=== PATIENT | male | born 1965 | race Caucasian/White ===

== ENCOUNTER → 2018-06-20 15:21 | Outpatient (CLI) | payer OTHER, MEDICAID, SELFPAY ==
[2018-06-20 16:43] LABS: Add Manual Diff / Slide Review NO; Basophils Percent Auto 0.7 % (0-2); Eosinophils Percent Auto 2.4 % (2-4); Hematocrit 45.5 % (41-53); Hemoglobin 15.2 g/dL (13.5-17.5); Lymphocytes Percent Auto 29.7 % (25-40); Mean Corpuscular HGB Conc 33.3 % (30-36); Mean Corpuscular Hemoglobin 30.6 PG (26-34); Mean Corpuscular Volume 91.8 fL (80-100); Monocytes Percent Auto 7.1 % (3-14); Neutrophils Absolute Auto 4600 /uL (3000-5900); Neutrophils Percent Auto 60.1 % (50-75); Platelet Count 263 X10^3/uL (150-400); Red Blood Cell Count 4.96 X10^6/uL (4.5-5.9); White Blood Cell Count 7.7 X10^3/uL (4.5-11.0)
[2018-06-20 17:01] LABS: Alanine Aminotransferase 34 IU/L (21-72); Albumin Globulin Ratio 1.5 (1.0-2.8); Alkaline Phosphatase 74 U/L (38-126); Amylase 82 U/L (30-110); Aspartate Aminotransferase 30 IU/L (17-59); BUN Creatinine Ratio 15.6 (6-22); Bilirubin Total 0.6 mg/dL (0.2-1.3); Blood Urea Nitrogen 14 mg/dL (9-20); Calcium 10.5 mg/dL (8.4-10.2); Carbon Dioxide 28 mmol/L (22-32); Chloride 104 mmol/L (98-107); Estimated Glomerular Filt Rate > 60.0 mL/min (>60); Globulin 3.3 g/dL (1.7-4.1); Glucose 94 mg/dL (70-100); HEMOLYSIS < 15 (0-50); Lipase 442 U/L (23-300); Potassium 4.3 mmol/L (3.4-5.1); Sodium 146 mmol/L (137-145); Total Protein 8.3 g/dL (6.3-8.2)
[2018-06-20 17:15] LABS: Free T4, Direct Thyroxine 1.01 ng/dL (0.78-2.19)
[2018-06-20 17:29] LABS: Thyroid Stimulating Hormone 0.79 uIU/mL (0.47-4.68)
== END ==
PROVIDERS: Family Provider Internal Medicine; PCP Internal Medicine; Visit Provider Internal Medicine
DX: F41.1 Generalized anxiety disorder (principal); J45.909 Unspecified asthma, uncomplicated; K86.1 Other chronic pancreatitis
CPT/HCPCS: 36415; 80053; 82150; 83690; 84439; 84443; 85025

== ENCOUNTER → 2020-07-16 14:08 | Outpatient (CLI) | payer OTHER, MEDICAID, SELFPAY ==
[2020-07-16 17:36] LABS: Alanine Aminotransferase 32 IU/L (<50); Albumin 4.9 g/dL (3.5-5.0); Albumin Globulin Ratio 1.2 (1.0-2.8); Alkaline Phosphatase 92 U/L (38-126); Aspartate Aminotransferase 35 IU/L (17-59); BUN Creatinine Ratio 16.9 (6-22); Bilirubin Total 0.5 mg/dL (0.2-1.3); Blood Urea Nitrogen 13 mg/dL (9-20); Carbon Dioxide 27 mmol/L (22-32); Chloride 105 mmol/L (98-107); Cholesterol 163 mg/dL (140-199); Estimated Glomerular Filt Rate > 60.0 mL/min (>60); Glucose 99 mg/dL (70-100); HDL Cholesterol 39 mg/dL (40-60); HEMOLYSIS 17 (0-50); LDL Cholesterol Calculated 78 mg/dL (<100); Sodium 140 mmol/L (137-145); Total Protein 8.9 g/dL (6.3-8.2); Triglycerides 229 mg/dL (35-150)
== END ==
PROVIDERS: Family Provider Internal Medicine; PCP Family Medicine; Referring Provider Family Medicine; Visit Provider Family Medicine
DX: E78.5 Hyperlipidemia, unspecified (principal); E83.52 Hypercalcemia; F41.1 Generalized anxiety disorder
CPT/HCPCS: 36415; 80053; 80061

== ENCOUNTER → 2021-07-03 13:44 | Outpatient (CLI) | payer OTHER, MEDICAID, SELFPAY ==
[2021-07-03 13:58] LABS: Add Manual Diff / Slide Review NO; Basophils Absolute Auto 100 /uL (0-100); Basophils Percent Auto 0.7 % (0-2); Eosinophils Absolute Auto 300 /uL (0-450); Eosinophils Percent Auto 3.2 % (2-4); Hematocrit 43.4 % (41-53); Lymphocytes Absolute Auto 3000 /uL (1100-4500); Lymphocytes Percent Auto 36.2 % (25-40); Mean Corpuscular HGB Conc 34.5 % (30-36); Mean Corpuscular Hemoglobin 30.9 PG (26-34); Mean Corpuscular Volume 89.5 fL (80-100); Monocytes Absolute Auto 700 /uL (0-900); Monocytes Percent Auto 8.9 % (3-14); Neutrophils Absolute Auto 4300 /uL (1500-7000); Platelet Count 223 X10^3/uL (150-400); Red Blood Cell Count 4.85 X10^6/uL (4.5-5.9); Red Cell Distribution Width 13.1 % (11.6-14.8); White Blood Cell Count 8.4 X10^3/uL (4.5-11.0)
[2021-07-03 14:25] LABS: Alanine Aminotransferase 38 IU/L (<50); Albumin 5.2 g/dL (3.5-5.0); Albumin Globulin Ratio 1.4 (1.0-2.8); Alkaline Phosphatase 82 U/L (38-126); Aspartate Aminotransferase 41 IU/L (17-59); BUN Creatinine Ratio 26.7 (6-22); Bilirubin Total 0.6 mg/dL (0.2-1.3); Blood Urea Nitrogen 23 mg/dL (9-20); Calcium 10.1 mg/dL (8.4-10.2); Carbon Dioxide 31 mmol/L (22-32); Chloride 102 mmol/L (98-107); Cholesterol 156 mg/dL (140-199); Estimated Glomerular Filt Rate > 60.0 mL/min (>60); Globulin 3.8 g/dL (1.7-4.1); Glucose 102 mg/dL (70-100); HDL Cholesterol 43 mg/dL (40-60); HEMOLYSIS < 15 (0-50); LDL Cholesterol Calculated 91 mg/dL (<100); Potassium 3.8 mmol/L (3.4-5.1); Sodium 141 mmol/L (137-145); Triglycerides 112 mg/dL (35-150)
[2021-07-03 14:55] LABS: Prostate Specific Antigen Scrn 0.436 ng/mL (0.1-4.0); TSH w/ Reflex to FT4 1.68 uIU/mL (0.47-4.68)
== END ==
PROVIDERS: Family Provider Internal Medicine; PCP Family Medicine; Referring Provider Family Medicine; Visit Provider Family Medicine
DX: F41.1 Generalized anxiety disorder (principal); E78.5 Hyperlipidemia, unspecified; E83.52 Hypercalcemia; K86.1 Other chronic pancreatitis; Z12.5 Encounter for screening for malignant neoplasm of prostate
CPT/HCPCS: 36415; 80053; 80061; 84443; 85025; G0103

== ENCOUNTER → 2022-01-28 11:11 | Outpatient (CLI) | payer OTHER, MEDICAID, SELFPAY ==
--- NOTE | 2022-01-28 11:17 | DI.CT.S_ITS ---
PROCEDURE: CT LUNG LOW DOSE SCREENING INDICATIONS: smoking history, 30+ pack history TECHNIQUE: Noncontrast 2.0-2.5 mm thick sections acquired from the pulmonary apices to the posterior costophrenic angles. 7 mm thick axial MIP, and 5 mm coronal and sagittal reformats were then acquired. A low radiation dose technique was utilized. COMPARISON: [facility], , CHEST 2 VIEW, 01/09/2011, 17:10. [facility], CHEST 2 VIEW, 09/15/2013, 16:57. FINDINGS: Image quality: Diagnostic, given the low radiation dose technique. Lungs and pleura: Within the right upper lobe, areas of focal consolidation are seen. The largest of these measures 3 x 1.5 cm in greatest axial dimension, with a craniocaudal extent of 5 cm. Centrilobular emphysematous changes are seen. These are more prominent at the lung apices than at the lung bases. Scattered calcified granulomas can be seen within both lungs. No pneumothorax or pleural effusions are seen. The central airways are patent. Mediastinum: Heart size is normal. No pericardial effusion. No mediastinal adenopathy by size criteria. Thoracic aorta and central pulmonary arteries are normal in size. Esophagus is normal in caliber. No hiatal hernia. Bones and chest wall: No suspicious bony lesions. No vertebral body compression fractures. Age-appropriate bony degenerative changes are seen. No axillary or supraclavicular adenopathy by size criteria. Thyroid gland demonstrates no significant noncontrast abnormality. Abdomen: Visualized upper abdomen solid organs and bowel loops appear normal in the absence of contrast. IMPRESSION: At the right lung apex, areas of consolidation can be seen. Differential diagnosis includes neoplasm versus scarring. Incidental note is made of: Prior granulomatous exposure. LUNG-RADS 4B; follow-up PET-CT is recommended. Dictated by: Karan Montes M.D. on 01/28/2022 at 15:22 Approved by: Karan Montes M.D. on 01/28/2022 at 15:26
[2022-01-28 12:39] LABS: Add Manual Diff / Slide Review NO; Basophils Absolute Auto 100 /uL (0-100); Basophils Percent Auto 0.9 % (0-2); Eosinophils Absolute Auto 300 /uL (0-450); Eosinophils Percent Auto 4.6 % (2-4); Hematocrit 39.6 % (41-53); Hemoglobin 13.7 g/dL (13.5-17.5); Lymphocytes Absolute Auto 2500 /uL (1100-4500); Lymphocytes Percent Auto 38.2 % (25-40); Mean Corpuscular HGB Conc 34.6 % (30-36); Mean Corpuscular Hemoglobin 31.3 PG (26-34); Mean Corpuscular Volume 90.2 fL (80-100); Monocytes Absolute Auto 600 /uL (0-900); Monocytes Percent Auto 8.8 % (3-14); Neutrophils Absolute Auto 3100 /uL (1500-7000); Neutrophils Percent Auto 47.5 % (50-75); Platelet Count 193 X10^3/uL (150-400); Red Blood Cell Count 4.38 X10^6/uL (4.5-5.9); Red Cell Distribution Width 13.2 % (11.6-14.8); White Blood Cell Count 6.5 X10^3/uL (4.5-11.0)
[2022-01-28 13:00] LABS: Alanine Aminotransferase 30 IU/L (<50); Albumin 4.8 g/dL (3.5-5.0); Albumin Globulin Ratio 1.5 (1.0-2.8); Alkaline Phosphatase 96 U/L (38-126); Aspartate Aminotransferase 35 IU/L (17-59); BUN Creatinine Ratio 22.1 (6-22); Bilirubin Total 0.5 mg/dL (0.2-1.3); Blood Urea Nitrogen 17 mg/dL (9-20); Calcium 9.4 mg/dL (8.4-10.2); Carbon Dioxide 27 mmol/L (22-32); Chloride 104 mmol/L (98-107); Estimated Glomerular Filt Rate > 60 mL/min (>60); Globulin 3.2 g/dL (1.7-4.1); Glucose 110 mg/dL (70-100); HEMOLYSIS < 15 (0-50); Potassium 4.3 mmol/L (3.4-5.1); Sodium 140 mmol/L (137-145)
[2022-01-28 13:29] LABS: TSH w/ Reflex to FT4 1.72 uIU/mL (0.47-4.68)
== END ==
PROVIDERS: Family Provider Internal Medicine; PCP Family Medicine; Referring Provider Family Medicine; Visit Provider Family Medicine
DX: L25.9 Unspecified contact dermatitis, unspecified cause (principal); F41.1 Generalized anxiety disorder; F17.200 Nicotine dependence, unspecified, uncomplicated; J42 Unspecified chronic bronchitis
CPT/HCPCS: 36415; 71250; 80053; 84443; 85025

== ENCOUNTER → 2022-02-06 11:34 | Outpatient (CLI) | payer OTHER, MEDICAID, SELFPAY ==
[2022-02-09 16:37] LABS: QuantiFERON Mitogen Value >10.00 IU/mL (.); QuantiFERON Nil Value 0.05 IU/mL (.); QuantiFERON TB Gold Plus Negative (Negative); QuantiFERON TB1 Ag Value 0.02 IU/mL (.); QuantiFERON TB2 Ag Value 0.02 IU/mL (.)
== END ==
PROVIDERS: Family Provider Internal Medicine; PCP Family Medicine; Referring Provider Family Medicine; Visit Provider Family Medicine
DX: F17.200 Nicotine dependence, unspecified, uncomplicated (principal); F17.210 Nicotine dependence, cigarettes, uncomplicated; J84.10 Pulmonary fibrosis, unspecified; R91.8 Other nonspecific abnormal finding of lung field
CPT/HCPCS: 36415; 86480

== ENCOUNTER 2022-06-12 10:49 | Inpatient (IN) | payer MEDICAID, OTHER, SELFPAY ==
[2022-06-12] VITALS (23 sets, daily range): BP systolic 118–137; BP diastolic 71–89; PULSE 103–126; RESP 18–35; TEMP 36.7–36.9; O2SAT 81–100; BMI 15.3
--- NOTE | 2022-06-12 10:56 | DI.RAD.S_ITS ---
PROCEDURE: XR CHEST 1V INDICATIONS: Shortness of breath TECHNIQUE: One view of the chest was acquired. COMPARISON: [facility], CT, CT LUNG LOW DOSE SCREENING, 01/28/2022, 11:21. [facility], CR, XR CHEST 1 VIEW, 03/31/2022, 13:54. [facility], CR, CHEST 2 VIEW, 09/15/2013, 16:57. FINDINGS: Surgical changes and devices: None. Lungs and pleura: There is a moderately sized right-sided pneumothorax seen. Poorly defined opacity can be seen involving the left upper lobe laterally. Mediastinum: There is shift of the mediastinum to the left. Bones and chest wall: No suspicious bony lesions. Age-appropriate bony degenerative changes are seen. Overlying soft tissues appear unremarkable. IMPRESSION: Moderately sized right-sided pneumothorax, with associated shift of the mediastinum to the left, which is suggestive of tension pneumothorax. There is poorly defined opacity seen involving the left upper lobe, which may be related to atelectasis or infiltrate. Note: Critical finding of pneumothorax discussed by telephone with Dr. Fonseca at 10:35 a.m. [place] time on June 12, 2022. Dictated by: Karan Montes M.D. on 06/12/2022 at 10:39 Approved by: Karan Montes M.D. on 06/12/2022 at 10:39
[2022-06-12 11:17] LABS: Add Manual Diff / Slide Review NO; Basophils Absolute Auto 100 /uL (0-100); Basophils Percent Auto 0.3 % (0-2); Eosinophils Absolute Auto 100 /uL (0-450); Eosinophils Percent Auto 0.6 % (2-4); Hematocrit 33.4 % (41-53); Hemoglobin 11.2 g/dL (13.5-17.5); Lymphocytes Absolute Auto 1600 /uL (1100-4500); Lymphocytes Percent Auto 7.9 % (25-40); Mean Corpuscular HGB Conc 33.5 % (30-36); Mean Corpuscular Hemoglobin 29.2 PG (26-34); Monocytes Absolute Auto 1500 /uL (0-900); Monocytes Percent Auto 7.4 % (3-14); Neutrophils Absolute Auto 16600 /uL (1500-7000); Neutrophils Percent Auto 83.8 % (50-75); Platelet Count 754 X10^3/uL (150-400); Red Blood Cell Count 3.84 X10^6/uL (4.5-5.9); Red Cell Distribution Width 14.6 % (11.6-14.8); White Blood Cell Count 19.8 X10^3/uL (4.5-11.0)
--- NOTE | 2022-06-12 11:19 | ED_ITS ---
HPI - SOB/Dyspnea General Chief Complaint: Shortness of Breath/Dyspnea Stated Complaint: SOB/Chest pain Time Seen by Provider: 06/12/22 11:11 Source: EMS Mode of arrival: EMS History of Present Illness HPI Narrative: Patient brought in by ambulance from home. Patient lives with his mother. Has history of COPD asthma and continues to smoke. History of noncancerous lung mass in this past summer with biopsy. Patient has progressively got more short of breath since March. 87% room air by EMS. Patient is not on home oxygen. Has not had any breathing treatments. Denies any pain or chest pain. Has poor diet and malnutrition likely due to poor dentition. Primary care is Dr. España. Complains of intermittent headache as well. As well as chest to pelvis pain. Patient feeling better with nasal cannula. Patient was 87% room air prior to arrival (1) Lung mass Status:?Acute ? This is a 56-year-old gentleman with history of pancreatitis and COPD who recently had a screening CT of the chest referred to revealed a rep a right upper lobe mass.? Subsequent CT/PET scan confirmed that the right upper lobe mass is FDG avid and there was also additional mediastinal adenopathy appreciated.? There is some increased FDG avidity avidity in the right shoulder muscle area of unclear etiology as well.? Today I discussed with Mr. Arellano that we will need to obtain tissue diagnosis to determine next steps in terms of treatment.? I will go ahead and arrange for evaluation by thoracic surgery to see if the mediastinal mass or the lung mass may be biopsied.? If this is not possible we will consider CT-guided biopsy.? The patient is agreeable to this plan and will plan return to clinic in 2-3 weeks to review pathology if this is obtained.? Referral to thoracic surgery at [facility] were made today. Plan Referred to Dr. Walton at thoracic surgery at [facility] for lung or mediastinal biopsy Return to clinic in 2-3 weeks to review and make further treatment plans. Plan to review case in tumor board tomorrow and make further plans as determined from that meeting. Related Data Home Medications Medication Instructions Recorded Confirmed acetaminophen 500 mg tablet 500 mg PO QID PRN Pain (Scale 03/03/22 06/12/22 (Tylenol Extra Strength) Score 4-6) Previous Rx's Medication Instructions Recorded fluticasone propionate 110 2 puff inhalation BID #12 grams 02/18/22 mcg/actuation HFA aerosol inhaler (Flovent HFA) inhalational spacing device #1 ea 02/22/22 (Flexichamber spacer) albuterol sulfate 90 mcg/actuation 2 inh inhalation Q6-8H PRN 04/15/22 aerosol inhaler (Ventolin HFA) shortness of breath or wheezing #18 grams clonazepam 1 mg tablet 1 mg PO TID PRN anxiety #90 tabs 04/23/22 Allergies Allergy/AdvReac Type Severity Reaction Status Date / Time lorazepam [LORAZEPAM] Allergy Mild INCREASE Verified 06/12/22 10:55 PARANOIA Review of Systems Review of Systems Narrative: GENERAL: negative chills, positive fatigue, malaise, negative fever, sweats. HEENT: negative sinus pain, ear pain, sore throat RESPIRATORY: Positive dyspnea, cough CARDIOVASCULAR: negative chest pain, palpitations GASTROINTESTINAL: negative nausea, vomiting, abdominal pain : negative dysuria, frequency, hematuria MUSCULOSKELETAL: negative muscle or bony pain SKIN: negative rash, skin lesions NEUROLOGIC: negative weakness, numbness ROS Unobtainable: All systems reviewed & are unremarkable except as noted in HPI and below Patient History Medical History Asthma (02/02/11) Chronic abdominal pain Dorsalgia (02/02/11) Generalized anxiety disorder (02/02/11) Hypercalcemia Hyperlipidemia Obstructive sleep apnea syndrome (02/02/11) Pancreatitis (~2011) Scoliosis (~1982) Smoker Smoker unmotivated to quit (02/02/11) Smoking greater than 30 pack years Tinnitus (2005) Surgical History Anesthesia Status post cholecystectomy (2011) Family History Father No problems noted. Mother No problems noted. Brother No problems noted. Sister No problems noted. Family/Other No problems noted. Family/Other No problems noted. Social History household members: family and children Smoking Status: Current some day smoker alcohol intake: former Smoking Status: Current some day smoker Substance Use Type: does not use Exam Narrative Exam Narrative: GENERAL: in no distress, not toxic not dyspneic, is emaciated appearing HEAD: Normocephalic. EYES: Pupils equal round No scleral icterus. ENT: Mucous membranes moist. NECK: Trachea midline. CARDIOVASCULAR: Regular rate and rhythm without murmurs RESPIRATORY: Speaks short sentences, diminished lung sounds on the right. There is bilateral there is slight wheezing. No rales GASTROINTESTINAL: Abdomen soft, non-tender EXTREMITIES: No gross deformities. BACK: No flank tenderness. NEURO: AOx4. SKIN: Warm and dry PSYCH: Not anxious, is cooperative Initial Vital Signs Initial Vital Signs: Vital Signs Temperature 98.4 F 06/12/22 10:51 Pulse Rate 117 H 06/12/22 10:51 Respiratory Rate 34 H 06/12/22 10:51 Blood Pressure 120/81 06/12/22 10:51 Pulse Oximetry 86 L 06/12/22 10:51 Oxygen Delivery Method 06/12/22 10:51 Procedures Chest Tube Chest Tube 1: Time of procedure: 12:33 Chest Tube Location: right and anterior axillary line Size of Tube (cm): 29 Chest Tube Prep: Yes betadine prep and sterile drapes applied Local Anesthetic: lidocaine 2% Amount of anesthesia used (mL): 3 Incision Made With: #11 blade Post Procedure: sutured to skin and sterile dressing applied Tube Drainage: none Post Procedure CXR?: Yes Patient Tolerated Procedure: Yes Progress: Johnnie set used 10.2 Fr/29 cm Procedural Sedation Time of procedure: 12:33 Consent signed: Yes Time out performed: Yes Indication: other (Right-sided chest tube) ASA Class: I Mallampati Airway Classification: Class I Preparation: manager cardiac applied, pulse oximeter, capnometry used, supplemental O2 applied, reversal agents at bedside, suction/airway equipment at bedside and IV secured Fentanyl: IV Fentanyl dose (mcg): 25 Midazolam: IV Midazolam dose (mg): 2 Intraservice time/total sedation time (min): 15 ED Sedation Level: Moderate (Concious) Patient Tolerated Procedure: Well and No complications Complications: none Course Course Course Narrative: 11:48 a.m.. Reviewed with patient and sister results of chest x-ray tension pneumothorax. Risks and benefits reviewed with him regarding procedural sedation as well as chest tube placement. He is awake alert oriented x4. Decision to Admit Date: 06/12/22 Decision to Admit time: 11:30 Orders Ordered: ED Orders 06/14/22 05:00 BMP [Basic Metabolic Panel] DAILY CBC Auto Diff [Complete Blood Count AUTO DIFF] DAILY 06/14/22 07:00 XR chest 1V DAILY 06/15/22 05:00 BMP [Basic Metabolic Panel] DAILY CBC Auto Diff [Complete Blood Count AUTO DIFF] DAILY Acetaminophen (Acetaminophen 325 Mg Tablet) 650 mg PO Q6H PRN PRN Reason: Fever/Mild Pain (1-3) Albuterol (Albuterol 2.5 Mg/3 Ml Neb (Adult)) 2.5 mg INH [id number] PRN PRN Reason: Shortness Of Breath Albuterol/Ipratropium (Albuterol/Ipratropium 3 Ml Ampul) 3 ml INH [id number] SIVA Last Admin: 06/13/22 13:02 Dose: 3 ml Documented By: Admin: 06/13/22 07:09 Dose: 3 ml Documented By: Admin: 06/12/22 19:09 Dose: 3 ml Documented By: ADRIENNE Budesonide (Budesonide 0.5 Mg/2 Ml Neb) 0.5 mg INH RTBID SIVA Bupropion HCl (Bupropion Sr 150 Mg Tab) 150 mg PO BID [facility] Last Admin: 06/13/22 08:25 Dose: Not Given Documented By: Admin: 06/12/22 21:03 Dose: Not Given Documented By: Clonazepam (Clonazepam 0.5 Mg Tablet) 1 mg PO TID PRN PRN Reason: anxiety Last Admin: 06/13/22 15:03 Dose: 1 mg Documented By: Admin: 06/13/22 06:56 Dose: 1 mg Documented By: Admin: 06/12/22 15:28 Dose: 1 mg Documented By: ROSAURA Enoxaparin Sodium (Enoxaparin 40 Mg/0.4 Ml Syringe) 40 mg SUBCUT DAILY SIVA Last Admin: 06/13/22 08:33 Dose: 40 mg Documented By: CRISTIAN Hydromorphone HCl (Hydromorphone 0.5 Mg Inj) 0.5 mg IV Q4H PRN PRN Reason: Pain, Moderate (4-6) Sodium Chloride (Normal Saline 0.9%) 1,000 mls @ 75 mls/hr IV CONT SIVA Stop: 06/13/22 19:44 Last Admin: 06/13/22 08:30 Dose: 75 mls/hr Documented By: CRISTIAN Melatonin (Melatonin 3 Mg Tablet) 6 mg PO BEDTIME PRN PRN Reason: Insomnia Last Admin: 06/12/22 21:13 Dose: 6 mg Documented By: Naloxone HCl (Naloxone 0.4 Mg/Ml Vial) 0.2 mg IV Q2MIN PRN PRN Reason: Opiate Reversal Nicotine (Nicotine 21 Mg Patch) 21 mg TOP DAILY [facility] Last Admin: 06/13/22 08:33 Dose: 21 mg Documented By: Admin: 06/12/22 15:38 Dose: 21 mg Documented By: ROSAURA Clonazepam 1mg - (Stored In Pharmacy) 1 each PO PRN PRN PRN Reason: PROTOCOL Oxycodone HCl (Oxycodone Ir 5 Mg Tablet) 5 mg PO Q4H PRN PRN Reason: Pain, Moderate (4-6) Last Admin: 06/13/22 15:03 Dose: 5 mg Documented By: Admin: 06/13/22 09:22 Dose: 5 mg Documented By: Admin: 06/13/22 04:47 Dose: 5 mg Documented By: Admin: 06/12/22 21:13 Dose: 5 mg Documented By: Pantoprazole Sodium (Pantoprazole Dr 40 Mg Tablet) 40 mg PO BEDTIME [facility] Last Admin: 06/12/22 21:13 Dose: 40 mg Documented By: Polyethylene Glycol (Polyethylene Glycol 3350 17 Gm Powd.Pack) 17 gm PO DAILY PRN PRN Reason: Constipation Sennosides (Sennosides 8.6 Mg Tablet) 8.6 mg PO BID PRN PRN Reason: Constipation Last Admin: 06/12/22 21:13 Dose: 8.6 mg Documented By: Sodium Chloride (Sodium Chloride 0.9% Flush) 10 ml IV PRN PRN PRN Reason: Flush Sodium Chloride (Sodium Chloride 0.9% Flush) 10 ml IV BID [facility] Last Admin: 06/13/22 08:57 Dose: Not Given Documented By: Admin: 06/12/22 21:13 Dose: 10 ml Documented By: Discontinued Medications Acetaminophen (Acetaminophen 325 Mg Tablet) 975 mg PO NOW ONE Stop: 06/12/22 13:13 Last Admin: 06/12/22 13:49 Dose: 975 mg Documented By: DUANE Albuterol/Ipratropium (Albuterol/Ipratropium 3 Ml Ampul) 3 ml INH NOW ONE Stop: 06/12/22 11:19 Last Admin: 06/12/22 11: Dose: 3 ml Documented By: ADRIENNE Azithromycin (Azithromycin 250 Mg Tablet) 500 mg PO DAILY SIVA Stop: 06/15/22 08:59 Fentanyl (Fentanyl 100 Mcg/2 Ml Inj) 25 mcg IV NOW ONE Stop: 06/12/22 11:56 Last Admin: 06/12/22 12:34 Dose: 25 mcg Documented By: DUANE Sodium Chloride (Normal Saline 0.9%) 500 mls @ 1,000 mls/hr IV BOLUS ONE Stop: 06/12/22 11:51 Last Infusion: 06/12/22 13:27 Dose: 0 mls/hr Documented By: Admin: 06/12/22 12:07 Dose: 1,000 mls/hr Documented By: DUANE Ceftriaxone Sodium 2,000 mg/ (Sodium Chloride) 100 mls @ 200 mls/hr IV NOW ONE Stop: 06/12/22 14:01 Last Infusion: 06/12/22 17:29 Dose: 0 mls/hr Documented By: Admin: 06/12/22 15:35 Dose: 200 mls/hr Documented By: ROSAURA Azithromycin 500 mg/ Dextrose 250 mls @ 250 mls/hr IV NOW ONE Stop: 06/12/22 14:01 Last Infusion: 06/12/22 17:29 Dose: 0 mls/hr Documented By: Admin: 06/12/22 16:12 Dose: 250 mls/hr Documented By: CRISTIAN Ceftriaxone Sodium 1,000 mg/ (Sodium Chloride) 100 mls @ 200 mls/hr IV Q24H [facility] Stop: 06/18/22 08:59 Lidocaine HCl (Lidocaine 1% 20 Ml) 20 ml INJ INTRA-OP ONE Stop: 06/12/22 12:18 Last Admin: 06/12/22 12:46 Dose: Not Given Documented By: MELANI Midazolam HCl (Midazolam 2 Mg/2 Ml Vial) 2 mg IV NOW ONE Stop: 06/12/22 11:56 Last Admin: 06/12/22 12:34 Dose: 2 mg Documented By: DUANE Midazolam HCl (Midazolam 2 Mg/2 Ml Vial) 2 mg IV NOW ONE Stop: 06/12/22 12:10 Last Admin: 06/12/22 13:26 Dose: Not Given Documented By: DUANE Non-Formulary Medication (Cimetidine) 800 mg PO [facility] Reevaluation(s) Reevaluation #1: Reviewed with patient and sister and agree for admit. Patient doing much better after chest tube. Time: 13:39 Consultations Consultation #1: Spoke with Dr. Arce general surgery will follow Time: 13:39 Consultation #2: Spoke with Dr. Bran, hospitalist, will admit, desires Rocephin Zithromax and procalcitonin. Time: 13:39 Vital Signs Vital signs: Vital Signs - 8 hr 06/12/22 10:51 06/12/22 10:58 06/12/22 10:51 Temperature 98.4 F Pulse Rate 117 H 126 H Respiratory Rate 34 H Blood Pressure 120/81 Pulse Oximetry 86 L 91 81 L Oxygen Delivery Method Room Air Nasal Cannula Oxygen Flow Rate 4 06/12/22 10:52 06/12/22 10:52 06/12/22 11:00 Temperature Pulse Rate 118 H Respiratory Rate Blood Pressure 120/81 137/88 Pulse Oximetry 84 L Oxygen Delivery Method Oxygen Flow Rate 06/12/22 11:00 06/12/22 11:30 06/12/22 11:30 Temperature Pulse Rate 115 H 113 H Respiratory Rate 34 H 35 H Blood Pressure 120/79 Pulse Oximetry 91 94 Oxygen Delivery Method Nasal Cannula Nasal Cannula Oxygen Flow Rate 4 4 06/12/22 12:05 06/12/22 12:23 06/12/22 12:25 Temperature Pulse Rate 108 H 109 H 108 H Respiratory Rate 24 Blood Pressure Pulse Oximetry 94 94 95 Oxygen Delivery Method Nasal Cannula Nasal Cannula Oxygen Flow Rate 3 4 06/12/22 12:25 06/12/22 12:30 06/12/22 12:30 Temperature Pulse Rate 108 H Respiratory Rate Blood Pressure 122/77 126/79 Pulse Oximetry 97 Oxygen Delivery Method Nasal Cannula Oxygen Flow Rate 4 06/12/22 12:35 06/12/22 12:35 06/12/22 12:40 Temperature Pulse Rate 107 H Respiratory Rate Blood Pressure 118/71 125/74 Pulse Oximetry 97 Oxygen Delivery Method Nasal Cannula Oxygen Flow Rate 4 06/12/22 12:40 06/12/22 12:45 06/12/22 12:45 Temperature Pulse Rate 106 H 103 H Respiratory Rate Blood Pressure 118/72 Pulse Oximetry 97 99 Oxygen Delivery Method Nasal Cannula Oxygen Flow Rate 4 06/12/22 12:50 06/12/22 12:50 06/12/22 12:55 Temperature Pulse Rate 109 H Respiratory Rate Blood Pressure 123/79 124/86 Pulse Oximetry 97 Oxygen Delivery Method Oxygen Flow Rate 06/12/22 12:55 06/12/22 13:00 06/12/22 13:00 Temperature Pulse Rate 112 H 114 H Respiratory Rate Blood Pressure 132/83 Pulse Oximetry 95 93 Oxygen Delivery Method Oxygen Flow Rate 06/12/22 13:12 Temperature Pulse Rate 104 H Respiratory Rate 20 Blood Pressure Pulse Oximetry Oxygen Delivery Method Oxygen Flow Rate MDM - SOB/Dyspnea Differential Diagnosis Differential diagnosis: Likely acute exacerbation of chronic obstructive airways disease, congestive heart failure, community acquired pneumonia and other (Pneumothorax/pneumonia) Lab Data Result diagrams: 06/13/22 06:30 06/13/22 06:30 Labs: Lab Results 06/12/22 06/12/22 06/12/22 Range/Units 10:50 10:56 10:56 WBC 19.8 H (4.5-11.0) X10^3/uL RBC 3.84 L (4.5-5.9) X10^6/uL Hgb 11.2 L (13.5-17.5) g/dL Hct 33.4 L (41-53) % MCV 87.0 (80-100) fL MCH 29.2 (26-34) PG MCHC 33.5 (30-36) % RDW 14.6 (11.6-14.8) % Plt Count 754 H (150-400) X10^3/uL Neut % (Auto) 83.8 H (50-75) % Lymph % (Auto) 7.9 L (25-40) % Moca % (Auto) 7.4 (3-14) % Eos % (Auto) 0.6 L (2-4) % Baso % (Auto) 0.3 (0-2) % Neut # (Auto) 48291 H (2550-6208) /uL Lymph # (Auto) 1600 (2825-6425) /uL Moca # (Auto) 1500 H (0-900) /uL Eos # (Auto) 100 (0-450) /uL Baso # (Auto) 100 (0-100) /uL Platelet Estimate Increased on smear RBC Morphology Normal morphology PT 16.5 H (10.1-12.7) SECONDS INR 1.4 H (0.9-1.3) Sodium (137-145) mmol/L Potassium (3.4-5.1) mmol/L Chloride (98-107) mmol/L Carbon Dioxide (22-32) mmol/L BUN (9-20) mg/dL Creatinine (0.66-1.25) mg/dL Estimated GFR (>60) mL/min BUN/Creatinine Ratio (6-22) Glucose (70-100) mg/dL Lactate (0.7-2.1) mmol/L Calcium (8.4-10.2) mg/dL Magnesium 2.5 H (1.6-2.3) mg/dL Total Bilirubin (0.2-1.3) mg/dL AST (17-59) IU/L ALT (<50) IU/L Alkaline Phosphatase (38-126) U/L Troponin I (0.01-0.034) ng/mL NT-Pro-B Natriuret Pep (<125) pg/mL Total Protein (6.3-8.2) g/dL Albumin (3.5-5.0) g/dL Globulin (1.7-4.1) g/dL Albumin/Globulin Ratio (1.0-2.8) Procalcitonin (<0.5) ng/mL SARS-CoV-2 (PCR) (Negative) Influenza A (RT-PCR) (NEGATIVE) Influenza B (RT-PCR) (NEGATIVE) RSV (PCR) (Negative) 06/12/22 06/12/22 06/12/22 Range/Units 10:56 10:56 10:56 WBC (4.5-11.0) X10^3/uL RBC (4.5-5.9) X10^6/uL Hgb (13.5-17.5) g/dL Hct (41-53) % MCV (80-100) fL MCH (26-34) PG MCHC (30-36) % RDW (11.6-14.8) % Plt Count (150-400) X10^3/uL Neut % (Auto) (50-75) % Lymph % (Auto) (25-40) % Moca % (Auto) (3-14) % Eos % (Auto) (2-4) % Baso % (Auto) (0-2) % Neut # (Auto) (3673-3747) /uL Lymph # (Auto) (2302-6634) /uL Moca # (Auto) (0-900) /uL Eos # (Auto) (0-450) /uL Baso # (Auto) (0-100) /uL Platelet Estimate RBC Morphology PT (10.1-12.7) SECONDS INR (0.9-1.3) Sodium 136 L (137-145) mmol/L Potassium 4.0 (3.4-5.1) mmol/L Chloride 97 L (98-107) mmol/L Carbon Dioxide 28 (22-32) mmol/L BUN 16 (9-20) mg/dL Creatinine 0.52 L (0.66-1.25) mg/dL Estimated GFR > 60 (>60) mL/min BUN/Creatinine Ratio 30.8 H (6-22) Glucose 162 H (70-100) mg/dL Lactate 3.3 H (0.7-2.1) mmol/L Calcium 9.5 (8.4-10.2) mg/dL Magnesium (1.6-2.3) mg/dL Total Bilirubin 0.4 (0.2-1.3) mg/dL AST 34 (17-59) IU/L ALT 33 (<50) IU/L Alkaline Phosphatase 127 H (38-126) U/L Troponin I < 0.012 (0.01-0.034) ng/mL NT-Pro-B Natriuret Pep 310 H (<125) pg/mL Total Protein 8.6 H (6.3-8.2) g/dL Albumin 3.5 (3.5-5.0) g/dL Globulin 5.1 H (1.7-4.1) g/dL Albumin/Globulin Ratio 0.7 L (1.0-2.8) Procalcitonin 0.16 (<0.5) ng/mL SARS-CoV-2 (PCR) (Negative) Influenza A (RT-PCR) (NEGATIVE) Influenza B (RT-PCR) (NEGATIVE) RSV (PCR) (Negative) 06/12/22 06/12/22 Range/Units 11:10 13:20 WBC (4.5-11.0) X10^3/uL RBC (4.5-5.9) X10^6/uL Hgb (13.5-17.5) g/dL Hct (41-53) % MCV (80-100) fL MCH (26-34) PG MCHC (30-36) % RDW (11.6-14.8) % Plt Count (150-400) X10^3/uL Neut % (Auto) (50-75) % Lymph % (Auto) (25-40) % Moca % (Auto) (3-14) % Eos % (Auto) (2-4) % Baso % (Auto) (0-2) % Neut # (Auto) (9186-1113) /uL Lymph # (Auto) (0293-7870) /uL Moca # (Auto) (0-900) /uL Eos # (Auto) (0-450) /uL Baso # (Auto) (0-100) /uL Platelet Estimate RBC Morphology PT (10.1-12.7) SECONDS INR (0.9-1.3) Sodium (137-145) mmol/L Potassium (3.4-5.1) mmol/L Chloride (98-107) mmol/L Carbon Dioxide (22-32) mmol/L BUN (9-20) mg/dL Creatinine (0.66-1.25) mg/dL Estimated GFR (>60) mL/min BUN/Creatinine Ratio (6-22) Glucose (70-100) mg/dL Lactate 1.5 (0.7-2.1) mmol/L Calcium (8.4-10.2) mg/dL Magnesium (1.6-2.3) mg/dL Total Bilirubin (0.2-1.3) mg/dL AST (17-59) IU/L ALT (<50) IU/L Alkaline Phosphatase (38-126) U/L Troponin I (0.01-0.034) ng/mL NT-Pro-B Natriuret Pep (<125) pg/mL Total Protein (6.3-8.2) g/dL Albumin (3.5-5.0) g/dL Globulin (1.7-4.1) g/dL Albumin/Globulin Ratio (1.0-2.8) Procalcitonin (<0.5) ng/mL SARS-CoV-2 (PCR) Negative (Negative) Influenza A (RT-PCR) Flu a negative (NEGATIVE) Influenza B (RT-PCR) Flu b negative (NEGATIVE) RSV (PCR) Negative (Negative) Urine Dip Bedside Urine Glucose Negative Bedside Urine Bilirubin - Negative Bedside Urine Ketone - Negative Urine Specific [place] 6.0 Bedside Urine Occult Blood - Negative Bedside Urine pH 6.0 Bedside Urine Protein +/- 15 Bedside Urine Urobilinogen - Negative Bedside Urine Nitrite - Negative Bedside Urine Leukocytes - Negative Esterase Imaging Data Chest x-ray: Radiologist's Impression: [address] [address] XRay Report Signed Patient: Ezequiel Wei MR#: [id number] : 1965 Acct:[id number] Age/Sex: 56 / M Date of Service: 06/12/22 Loc: ED Accession Number: [id number] ?? Procedure: XR chest 1V Ordering Provider: Marco A Fonseca MD PROCEDURE:? XR CHEST 1V ? INDICATIONS:? Shortness of breath ? TECHNIQUE:? One view of the chest was acquired.? ? COMPARISON:? [facility], CT, CT LUNG LOW DOSE SCREENING, 01/28/2022, 11:21.? [facility], CR, XR CHEST 1 VIEW, 03/31/2022, 13:54.? [facility], , CHEST 2 VIEW, 09/15/2013, 16:57. ? FINDINGS:? ? Surgical changes and devices:? None.? ? Lungs and pleura:? There is a moderately sized right-sided pneumothorax seen. ? Poorly defined opacity can be seen involving the left upper lobe laterally. ? Mediastinum:? There is shift of the mediastinum to the left. ? Bones and chest wall:? No suspicious bony lesions.? Age-appropriate bony degenerative changes are seen. ? Overlying soft tissues appear unremarkable.? ? ? IMPRESSION:? ? Moderately sized right-sided pneumothorax, with associated shift of the mediastinum to the left, which is suggestive of tension pneumothorax. ? There is poorly defined opacity seen involving the left upper lobe, which may be related to atelectasis or infiltrate. ? Note:? Critical finding of pneumothorax discussed by telephone with Dr. Fonseca at 10:35 a.m. [place] time on June 12, 2022.? Dictated by: Karan Montes M.D. on 06/12/2022 at 10:39 ? ? Approved by: Karan Montes M.D. on 06/12/2022 at 10:39 ? repeat cxr: Radiologist's Impression: [address] [address] XRay Report Signed Patient: Ezequiel Wei MR#: [id number] : 1965 Acct:[id number] Age/Sex: 56 / M Date of Service: 06/12/22 Loc: ED Accession Number: [id number] ?? Procedure: XR chest 1V Ordering Provider: Marco A Fonseca MD PROCEDURE:? XR CHEST 1V ? INDICATIONS:? chest tube confirmation ? TECHNIQUE:? One view of the chest was acquired.? ? COMPARISON:? [facility], CT, CT LUNG LOW DOSE SCREENING, 01/28/2022, 11:21.? [facility], CT, CT VERAN CHEST, 03/31/2022, 11:40.? [facility], CR, XR CHEST 1 VIEW, 03/31/2022, 13:54.? [facility], CR, XR CHEST 1V, 06/12/2022, 11:11. ? FINDINGS:? ? Surgical changes and devices:? A right-sided pleural drain has been placed laterally. ? Lungs and pleura:? There is a small right-sided pneumothorax seen, which is clearly improved compared to prior examination.? The left upper lobe opacities are similar to the prior examination.? Nodular opacities are noted within the right upper lobe, which is better seen by CT. ? Mediastinum:? The mediastinum is no longer significantly shifted. ? Bones and chest wall:? No suspicious bony lesions.? Overlying soft tissues appear unremarkable.? ? ? IMPRESSION:? Interval right pleural drain placement, with improved right-sided pneumothorax, which is now small in size. ? The mediastinum no longer appears shifted. ? Stable left upper lobe opacity seen.? ? Right upper lobe nodular opacities again seen.? ? Dictated by: Karan Montes M.D. on 06/12/2022 at 12:20 ? ? Approved by: Karan Montes M.D. on 06/12/2022 at 12:24 ? ECG Data Interpretation: Sinus tachycardia rate [address] elevation or depression MDM Narrative Medical decision making narrative: Appropriate for admission. Patient tolerated procedural sedation as well as chest tube placement very well. I did review with surgeon and hospitalist and agree for admit. Patient and sister understand indication and need for Critical Care Time Critical Care Time Attestation: Critical Care Time 35 minutes: Critical care time is separate from other billable procedures. This critical care time includes consultation with family and other consulting doctors, review of records, and interpretation of data from labs, EKGs, imaging, etc. Discharge Plan Departure Patient Disposition: Admitted As Inpatient Clinical Impression: Pneumothorax on right, Community acquired pneumonia Admit Date/Time: 06/12/22 14:30 Admit Provider: Paul Bran
[2022-06-12] MEDS: ALBUTEROL/IPRATROPIUM 3 ML AMPUL INH ×2 (11:22→19:09)
[2022-06-12 11:23] LABS: INR 1.4 (0.9-1.3); Prothrombin Time 16.5 SECONDS (10.1-12.7)
[2022-06-12 11:31] LABS: Alanine Aminotransferase 33 IU/L (<50); Albumin 3.5 g/dL (3.5-5.0); Albumin Globulin Ratio 0.7 (1.0-2.8); Alkaline Phosphatase 127 U/L (38-126); Aspartate Aminotransferase 34 IU/L (17-59); BUN Creatinine Ratio 30.8 (6-22); Bilirubin Total 0.4 mg/dL (0.2-1.3); Blood Urea Nitrogen 16 mg/dL (9-20); Calcium 9.5 mg/dL (8.4-10.2); Carbon Dioxide 28 mmol/L (22-32); Chloride 97 mmol/L (98-107); Estimated Glomerular Filt Rate > 60 mL/min (>60); Globulin 5.1 g/dL (1.7-4.1); Glucose 162 mg/dL (70-100); HEMOLYSIS < 15 (0-50); Sodium 136 mmol/L (137-145); Total Protein 8.6 g/dL (6.3-8.2)
[2022-06-12 11:32] LABS: Lactate (Lactic Acid) 3.3 mmol/L (0.7-2.1)
[2022-06-12 11:43] LABS: NT-proBNP (BNP-Adult 18+) 310 pg/mL (<125); Troponin I < 0.012 ng/mL (0.01-0.034)
[2022-06-12 11:54] LABS: Influenza A - CEPHEID Flu A NEGATIVE (NEGATIVE); Influenza B - CEPHEID Flu B NEGATIVE (NEGATIVE); Respiratory Syncytial Virus Negative (Negative)
[2022-06-12 12:04] LABS: COVID-19 CEPHEID 4-PLEX PCR Negative (Negative)
[2022-06-12] MEDS: SODIUM CHLORIDE 0.9% 500 ML 1000 ML IV (12:07)
[2022-06-12] MEDS: LIDOCAINE 2% INJ SDV 5 ML (12:25)
[2022-06-12] MEDS: fentaNYL 100 MCG/2 ML INJ 25 MCG IV (12:34)
[2022-06-12] MEDS: MIDAZOLAM 2 MG/2 ML VIAL IV (12:34)
--- NOTE | 2022-06-12 12:45 | DI.RAD.S_ITS ---
PROCEDURE: XR CHEST 1V INDICATIONS: chest tube confirmation TECHNIQUE: One view of the chest was acquired. COMPARISON: [facility], CT, CT LUNG LOW DOSE SCREENING, 01/28/2022, 11:21. [facility], CT, CT VERAN CHEST, 03/31/2022, 11:40. [facility], CR, XR CHEST 1 VIEW, 03/31/2022, 13:54. [facility], CR, XR CHEST 1V, 06/12/2022, 11:11. FINDINGS: Surgical changes and devices: A right-sided pleural drain has been placed laterally. Lungs and pleura: There is a small right-sided pneumothorax seen, which is clearly improved compared to prior examination. The left upper lobe opacities are similar to the prior examination. Nodular opacities are noted within the right upper lobe, which is better seen by CT. Mediastinum: The mediastinum is no longer significantly shifted. Bones and chest wall: No suspicious bony lesions. Overlying soft tissues appear unremarkable. IMPRESSION: Interval right pleural drain placement, with improved right-sided pneumothorax, which is now small in size. The mediastinum no longer appears shifted. Stable left upper lobe opacity seen. Right upper lobe nodular opacities again seen. Dictated by: Karan Montes M.D. on 06/12/2022 at 12:20 Approved by: Karan Montes M.D. on 06/12/2022 at 12:24
[2022-06-12 12:48] LABS: Platelet Estimate Increased on smear; RBC Morphology Normal Morphology
[2022-06-12 13:06] LABS: Reflexed Lactate in 2 Hours Y
[2022-06-12 13:46] LABS: Lactate 2HR (Lactic Acid Rflx) 1.5 mmol/L (0.7-2.1)
[2022-06-12] MEDS: ACETAMINOPHEN 325 MG TABLET 975 MG PO (13:49)
[2022-06-12 14:19] LABS: Magnesium 2.5 mg/dL (1.6-2.3)
--- NOTE | 2022-06-12 14:23 | P.HP_ITS ---
History of Present Illness History of Present Illness Date Patient Seen: 06/12/22 Time Patient Seen: 18:16 Chief complaint: SOB/Chest pain Narrative: Mega Wei is a 56yo M with PMH of right upper lung mass s/p biopsy in Mar 2022 which was not cancerous, pancreatitis, previous alcoholism sober 10 years, chronic tobacco dependence, COPD, and anxiety who presents with 2 days of progressive dyspnea and found to have right-sided pneumothorax. Patient notes he developed shortness of breath over which progressed to gasping for air with any exertion. He lives at home with his mother and EMS was called where he was found to be 87% on room air. Patient says he has never had a pneumothorax before. Denies NV, chest pain, abd pain, or upper resp symptoms such as cough, rhinorrhea, or congestion. Patient is extremely thin and says he has been losing lots of weight due to issues with his dentures and unable to eat foods well. He says he was 134lbs a month ago and is now 127lbs. He has not had his chewing issues addressed and continues to not have adequate po intake because of this. In the ED, CXR confirmed mod sized right-sided pneumothorax with mediastinal shift suggestive of tension pneumo. An emergent chest tube was placed by the ED. Also ill-defined left upper lobe density seen. He was on 4L O2 which has now been weaned off since coming to the floor. Chest tube now on suction with small air-leak. Patient History Medical History Asthma (02/02/11) Chronic abdominal pain Dorsalgia (02/02/11) Generalized anxiety disorder (02/02/11) Hypercalcemia Hyperlipidemia Obstructive sleep apnea syndrome (02/02/11) Pancreatitis (~2011) Scoliosis (~1982) Smoker Smoker unmotivated to quit (02/02/11) Smoking greater than 30 pack years Tinnitus (2005) Surgical History Anesthesia Status post cholecystectomy (2011) Family & Social History Family History Father No problems noted. Mother No problems noted. Brother No problems noted. Sister No problems noted. Family/Other No problems noted. Family/Other No problems noted. Safety & Behavioral: Feels Safe in Current Yes Environment Been Physically Hurt or No Threatened By a Person Tobacco & Substance use: Smoking Status Current some day smoker Substance Use Type does not use Meds Home Medications and Allergies Home Medications Medication Instructions Recorded Confirmed Type fluticasone propionate 110 2 puff inhalation BID #12 grams 02/18/22 06/12/22 Rx mcg/actuation HFA aerosol inhaler (Flovent HFA) inhalational spacing device #1 ea 02/22/22 06/12/22 Rx (Flexichamber spacer) acetaminophen 500 mg tablet 500 mg PO QID PRN Pain (Scale 03/03/22 06/12/22 His tory (Tylenol Extra Strength) Score 4-6) albuterol sulfate 90 mcg/actuation 2 inh inhalation Q6-8H PRN 04/15/22 06/12/22 Rx aerosol inhaler (Ventolin HFA) shortness of breath or wheezing #18 grams clonazepam 1 mg tablet 1 mg PO TID PRN anxiety #90 tabs 04/23/22 06/12/22 Rx Allergies Allergy/AdvReac Type Severity Reaction Status Date / Time lorazepam [LORAZEPAM] Allergy Mild INCREASE Verified 06/12/22 10:55 PARANOIA Review of Systems Review of Systems Narrative: All other systems reviewed with the patient and are negative unless otherwise stated. Exam Vital Signs (past 8 hours): - 06/12/22 10:51 06/12/22 10:58 06/12/22 10:51 Temperature 98.4 F Pulse Rate 117 H 126 H Respiratory Rate 34 H Blood Pressure 120/81 Pulse Oximetry 86 L 91 81 L Oxygen Delivery Method Room Air Nasal Cannula Oxygen Flow Rate 4 06/12/22 10:52 06/12/22 10:52 06/12/22 11:00 Temperature Pulse Rate 118 H Respiratory Rate Blood Pressure 120/81 137/88 Pulse Oximetry 84 L Oxygen Delivery Method Oxygen Flow Rate 06/12/22 11:00 06/12/22 11:30 06/12/22 11:30 Temperature Pulse Rate 115 H 113 H Respiratory Rate 34 H 35 H Blood Pressure 120/79 Pulse Oximetry 91 94 Oxygen Delivery Method Nasal Cannula Nasal Cannula Oxygen Flow Rate 4 4 06/12/22 12:05 06/12/22 12:23 06/12/22 12:25 Temperature Pulse Rate 108 H 109 H 108 H Respiratory Rate 24 Blood Pressure Pulse Oximetry 94 94 95 Oxygen Delivery Method Nasal Cannula Nasal Cannula Oxygen Flow Rate 3 4 06/12/22 12:25 06/12/22 12:30 06/12/22 12:30 Temperature Pulse Rate 108 H Respiratory Rate Blood Pressure 122/77 126/79 Pulse Oximetry 97 Oxygen Delivery Method Nasal Cannula Oxygen Flow Rate 4 06/12/22 12:35 06/12/22 12:35 06/12/22 12:40 Temperature Pulse Rate 107 H Respiratory Rate Blood Pressure 118/71 125/74 Pulse Oximetry 97 Oxygen Delivery Method Nasal Cannula Oxygen Flow Rate 4 06/12/22 12:40 06/12/22 12:45 06/12/22 12:45 Temperature Pulse Rate 106 H 103 H Respiratory Rate Blood Pressure 118/72 Pulse Oximetry 97 99 Oxygen Delivery Method Nasal Cannula Oxygen Flow Rate 4 06/12/22 12:50 06/12/22 12:50 06/12/22 12:55 Temperature Pulse Rate 109 H Respiratory Rate Blood Pressure 123/79 124/86 Pulse Oximetry 97 Oxygen Delivery Method Oxygen Flow Rate 06/12/22 12:55 06/12/22 13:00 06/12/22 13:00 Temperature Pulse Rate 112 H 114 H Respiratory Rate Blood Pressure 132/83 Pulse Oximetry 95 93 Oxygen Delivery Method Oxygen Flow Rate 06/12/22 13:12 Temperature Pulse Rate 104 H Respiratory Rate 20 Blood Pressure Pulse Oximetry Oxygen Delivery Method Oxygen Flow Rate Oxygen Delivery Method Nasal Cannula Oxygen Flow Rate 4 Narrative Exam Narrative: GEN: no acute distress, extremely thin male who appears older than stated age HEENT: moist mucous membranes, PERRL, temporal wasting present NECK: trachea midline, no JVD CV: tachycardic with regular rhythm, no murmurs PULM: breath sounds present bilaterally, no wheezes or rales ABD: soft, nontender, nondistended, no organomegaly EXT: warm and well perfused with no edema NEURO: awake, alert, oriented, no focal deficits Objective Labs Result Diagrams: 06/12/22 10:56 06/12/22 10:56 Labs: Laboratory Results - last 24 hr 06/12/22 06/12/22 06/12/22 10:50 10:56 10:56 WBC 19.8 H RBC 3.84 L Hgb 11.2 L Hct 33.4 L MCV 87.0 MCH 29.2 MCHC 33.5 RDW 14.6 Plt Count 754 H Neut % (Auto) 83.8 H Lymph % (Auto) 7.9 L [place] % (Auto) 7.4 Eos % (Auto) 0.6 L Baso % (Auto) 0.3 Neut # (Auto) 73033 H Lymph # (Auto) 1600 [place] # (Auto) 1500 H Eos # (Auto) 100 Baso # (Auto) 100 Platelet Estimate Increased on smear RBC Morphology Normal morphology PT 16.5 H INR 1.4 H Sodium Potassium Chloride Carbon Dioxide BUN Creatinine Estimated GFR BUN/Creatinine Ratio Glucose Lactate Calcium Magnesium 2.5 H Total Bilirubin AST ALT Alkaline Phosphatase Troponin I NT-Pro-B Natriuret Pep Total Protein Albumin Globulin Albumin/Globulin Ratio SARS-CoV-2 (PCR) Influenza A (RT-PCR) Influenza B (RT-PCR) RSV (PCR) 06/12/22 06/12/22 06/12/22 10:56 10:56 11:10 WBC RBC Hgb Hct MCV MCH MCHC RDW Plt Count Neut % (Auto) Lymph % (Auto) [place] % (Auto) Eos % (Auto) Baso % (Auto) Neut # (Auto) Lymph # (Auto) [place] # (Auto) Eos # (Auto) Baso # (Auto) Platelet Estimate RBC Morphology PT INR Sodium 136 L Potassium 4.0 Chloride 97 L Carbon Dioxide 28 BUN 16 Creatinine 0.52 L Estimated GFR > 60 BUN/Creatinine Ratio 30.8 H Glucose 162 H Lactate 3.3 H Calcium 9.5 Magnesium Total Bilirubin 0.4 AST 34 ALT 33 Alkaline Phosphatase 127 H Troponin I < 0.012 NT-Pro-B Natriuret Pep 310 H Total Protein 8.6 H Albumin 3.5 Globulin 5.1 H Albumin/Globulin Ratio 0.7 L SARS-CoV-2 (PCR) Negative Influenza A (RT-PCR) Flu a negative Influenza B (RT-PCR) Flu b negative RSV (PCR) Negative 06/12/22 13:20 WBC RBC Hgb Hct MCV MCH MCHC RDW Plt Count Neut % (Auto) Lymph % (Auto) [place] % (Auto) Eos % (Auto) Baso % (Auto) Neut # (Auto) Lymph # (Auto) [place] # (Auto) Eos # (Auto) Baso # (Auto) Platelet Estimate RBC Morphology PT INR Sodium Potassium Chloride Carbon Dioxide BUN Creatinine Estimated GFR BUN/Creatinine Ratio Glucose Lactate 1.5 Calcium Magnesium Total Bilirubin AST ALT Alkaline Phosphatase Troponin I NT-Pro-B Natriuret Pep Total Protein Albumin Globulin Albumin/Globulin Ratio SARS-CoV-2 (PCR) Influenza A (RT-PCR) Influenza B (RT-PCR) RSV (PCR) Assessment & Plan Assessment & Plan narrative: # spontaneous tension pneumothorax, present on admissionm -etiology possibly related to RUL mass and recent biopsy in Mar 2022 -chest tube in place to suction, repeat CXR with improvementin PTX and resolution of mediastinal shift -gen surg consulted to manage tube -daily CXR's -oxycodone and dilaudid PRN for pain due to tube # acute hypoxic resp failure, present on admission. resolved. -secondary to PTX, was satting 87% on room air and needed up to 4L NC -now weaned to room air with chest placement -do not suspect pneumonia as procal only 0.15, will stop abx # severely underweight with malnutrition -patient is only 58kg with BMI 15, evidence of temporal wasting on exam, albumin on low end 3.5 -recommend tube feeds for immediate nutrition correction, as patient has poor po intake due to denture problems -dietary and pharmacy consulted -patient open to tube feeds, will discuss NG vs PEG with gen surg this admission -recommend ongoing outpatient tube feeds so will consult [employer] ENGINEERING TECHNICIAN for infusion solutions setup # tobacco dependence and COPD -nicotine patch ordered -albuterol PRN # anxiety -continue home klonopin and wellbutrin Code status is full code. COVID negative. DVT prophylaxis with lovenox. Proxy is sister Keyla. I have reviewed home meds and used all available resources to reconcile the home meds. This patient will be admitted as inpatient and will require greater than 2 midnights of hospital time to treat tension pneumothorax. Time Spent With Patient Critical Care time: I spent a total of [] minutes of critical care time on this patient's care today; this time is exclusive of procedural time.
[2022-06-12 14:32] LABS: Procalcitonin 0.16 ng/mL (<0.5)
--- NOTE | 2022-06-12 14:39 | PC.NURSE ---
Day shift: Pt on unit from ED at approx 1440. VS OK. HR 111. Pt states that he takes his anxiety meds at this time of the day. Dr Bran informed. Pt does appear pale. Denies any chest pain. Chest tube attached to wall suction per ED RN. Pt was able to stand and get himself into the bed. He will be high fall risk for now. Will continue with plan of care.
[2022-06-12] MEDS: clonazePAM 0.5 MG TABLET 1 MG PO (15:28)
[2022-06-12] MEDS: cefTRIAXone 2,000 MG in SODIUM CHLORIDE 0.9% 100 ML 200 MG IV (15:35)
[2022-06-12] MEDS: NICOTINE 21 MG PATCH TOP (15:38)
[2022-06-12] MEDS: AZITHROMYCIN 500 MG in DEXTROSE 5% IN WATER 250 ML 250 MG IV (16:12)
[2022-06-12 17:18] LABS: Appearance Urine UA CLEAR; Bilirubin Urine UA NEGATIVE (NEGATIVE); Color Urine UA YELLOW; Glucose Urine UA NEGATIVE (Negative); Ketones Urine UA NEGATIVE (NEGATIVE); Leukocyte Esterase Urine UA NEGATIVE (NEGATIVE); Nitrite Urine UA NEGATIVE (Negative); Occult Blood Urine UA NEGATIVE (Negative); Protein Urine UA TRACE (Negative); Urobilinogen Urine UA 0.2 E.U./dL (0.2); pH Urine UA 6.5 (4.5-8.0)
[2022-06-12 17:50] LABS: Bacteria Urine None Seen; Culture Indicated Urine Cult Not Indicated; RBC Urine 0-1/HPF (0-5/HPF); Squamous Epithelial Cell Urine None Seen (0-5/HPF); WBC Urine 0-1/HPF (0-5/HPF)
[2022-06-12] MEDS: SODIUM CHLORIDE 0.9% FLUSH 10 ML IV (21:13)
[2022-06-12] MEDS: OXYCODONE IR 5 MG TABLET PO (21:13)
[2022-06-12] MEDS: MELATONIN 3 MG TABLET 6 MG PO (21:13)
[2022-06-12] MEDS: PANTOPRAZOLE DR 40 MG TABLET PO (21:13)
[2022-06-12] MEDS: SENNOSIDES 8.6 MG TABLET PO (21:13)
[2022-06-13] VITALS (8 sets, daily range): BP systolic 115–140; BP diastolic 76–87; PULSE 110–120; RESP 14–24; TEMP 36.5–36.9; O2SAT 95–98
[2022-06-13] MEDS: OXYCODONE IR 5 MG TABLET PO ×4 (04:47→23:00)
[2022-06-13] MEDS: clonazePAM 0.5 MG TABLET 1 MG PO ×3 (06:56→23:00)
--- NOTE | 2022-06-13 07:00 | DI.RAD.S_ITS ---
PROCEDURE: XR CHEST 1V INDICATIONS: assess for pneumothorax resolution TECHNIQUE: One view of the chest was acquired. COMPARISON: [facility], CR, XR CHEST 1V, 06/12/2022, 11:11. [facility], CR, XR CHEST 1 VIEW, 03/31/2022, 13:54. [facility], CT, CT VERAN CHEST, 03/31/2022, 11:40. [facility], NM, NM PET CT FUSION SKULL 2 THIGH, 02/17/2022, 10:29. [facility], CT, CT LUNG LOW DOSE SCREENING, 01/28/2022, 11:21. [facility], CR, XR CHEST 1V, 06/12/2022, 12:43. FINDINGS: Surgical changes and devices: A stable right-sided pleural drain is seen. Lungs and pleura: There is a small right-sided pneumothorax, which is stable compared to the prior examination. Stable nodular opacity can be seen involving the right lung apex. There is stable opacity seen involving the left superolateral lung. Mediastinum: Mediastinal contours appear normal. Heart size is normal. Bones and chest wall: No suspicious bony lesions. Age-appropriate bony degenerative changes are seen. Overlying soft tissues appear unremarkable. IMPRESSION: Stable right-sided pleural drain, with a stable small right-sided pneumothorax. Stable right upper lobe nodule. Stable left superolateral pulmonary opacity. Dictated by: Karan Montes M.D. on 06/13/2022 at 10:25 Approved by: Karan Montes M.D. on 06/13/2022 at 10:26
--- NOTE | 2022-06-13 07:05 | PM.PN.1 ---
Subjective Subjective Date Patient Seen: 06/13/22 Time Patient Seen: 17:00 Interval history: Obtained CT chest w contrast, which Dr. Henriquez read and thought was likley fungal PNA vs TB and recommended transfer for ID consult. [facility] called who recommended several labs and putting patient in isolation. Despite this, patient says his breathing is better than it has ever been. Exam Vital Signs (past 8 hours): - 06/13/22 00:00 06/13/22 05:06 Temperature 97.9 F 98.0 F Pulse Rate 111 H 116 H Respiratory Rate 18 18 Blood Pressure 115/76 127/81 Pulse Oximetry 96 96 Oxygen Flow Rate 0 0 Oxygen Delivery Method Room Air Oxygen Flow Rate 0 Narrative Exam Narrative: GEN: no acute distress, extremely thin male who appears older than stated age HEENT: moist mucous membranes, PERRL, temporal wasting present NECK: trachea midline, no JVD CV: tachycardic with regular rhythm, no murmurs PULM: breath sounds present bilaterally, no wheezes or rales. Chest tube on right side. ABD: soft, nontender, nondistended, no organomegaly EXT: warm and well perfused with no edema NEURO: awake, alert, oriented, no focal deficits Objective Labs Result Diagrams: 06/13/22 06:30 06/13/22 06:30 Labs: Laboratory Results - last 24 hr 06/12/22 06/12/22 06/12/22 10:50 10:56 10:56 WBC 19.8 H RBC 3.84 L Hgb 11.2 L Hct 33.4 L MCV 87.0 MCH 29.2 MCHC 33.5 RDW 14.6 Plt Count 754 H Neut % (Auto) 83.8 H Lymph % (Auto) 7.9 L [place] % (Auto) 7.4 Eos % (Auto) 0.6 L Baso % (Auto) 0.3 Neut # (Auto) 77106 H Lymph # (Auto) 1600 [place] # (Auto) 1500 H Eos # (Auto) 100 Baso # (Auto) 100 Platelet Estimate Increased on smear RBC Morphology Normal morphology PT 16.5 H INR 1.4 H Sodium Potassium Chloride Carbon Dioxide BUN Creatinine Estimated GFR BUN/Creatinine Ratio Glucose Lactate Calcium Magnesium 2.5 H Total Bilirubin AST ALT Alkaline Phosphatase Troponin I NT-Pro-B Natriuret Pep Total Protein Albumin Globulin Albumin/Globulin Ratio Procalcitonin Urine Color Urine Appearance Urine pH Ur Specific [place] Urine Protein Urine Glucose (UA) Urine Ketones Urine Occult Blood Urine Nitrate Urine Bilirubin Urine Urobilinogen Ur Leukocyte Esterase Urine RBC Urine WBC Ur Squamous Epith Cells Urine Bacteria Ur Culture Indicated? SARS-CoV-2 (PCR) Influenza A (RT-PCR) Influenza B (RT-PCR) RSV (PCR) 06/12/22 06/12/22 06/12/22 10:56 10:56 10:56 WBC RBC Hgb Hct MCV MCH MCHC RDW Plt Count Neut % (Auto) Lymph % (Auto) [place] % (Auto) Eos % (Auto) Baso % (Auto) Neut # (Auto) Lymph # (Auto) [place] # (Auto) Eos # (Auto) Baso # (Auto) Platelet Estimate RBC Morphology PT INR Sodium 136 L Potassium 4.0 Chloride 97 L Carbon Dioxide 28 BUN 16 Creatinine 0.52 L Estimated GFR > 60 BUN/Creatinine Ratio 30.8 H Glucose 162 H Lactate 3.3 H Calcium 9.5 Magnesium Total Bilirubin 0.4 AST 34 ALT 33 Alkaline Phosphatase 127 H Troponin I < 0.012 NT-Pro-B Natriuret Pep 310 H Total Protein 8.6 H Albumin 3.5 Globulin 5.1 H Albumin/Globulin Ratio 0.7 L Procalcitonin 0.16 Urine Color Urine Appearance Urine pH Ur Specific [place] Urine Protein Urine Glucose (UA) Urine Ketones Urine Occult Blood Urine Nitrate Urine Bilirubin Urine Urobilinogen Ur Leukocyte Esterase Urine RBC Urine WBC Ur Squamous Epith Cells Urine Bacteria Ur Culture Indicated? SARS-CoV-2 (PCR) Influenza A (RT-PCR) Influenza B (RT-PCR) RSV (PCR) 06/12/22 06/12/22 06/12/22 11:10 13:20 17:14 WBC RBC Hgb Hct MCV MCH MCHC RDW Plt Count Neut % (Auto) Lymph % (Auto) [place] % (Auto) Eos % (Auto) Baso % (Auto) Neut # (Auto) Lymph # (Auto) [place] # (Auto) Eos # (Auto) Baso # (Auto) Platelet Estimate RBC Morphology PT INR Sodium Potassium Chloride Carbon Dioxide BUN Creatinine Estimated GFR BUN/Creatinine Ratio Glucose Lactate 1.5 Calcium Magnesium Total Bilirubin AST ALT Alkaline Phosphatase Troponin I NT-Pro-B Natriuret Pep Total Protein Albumin Globulin Albumin/Globulin Ratio Procalcitonin Urine Color Yellow Urine Appearance Clear Urine pH 6.5 Ur Specific [place] 1.010 Urine Protein Trace H Urine Glucose (UA) Negative Urine Ketones Negative Urine Occult Blood Negative Urine Nitrate Negative Urine Bilirubin Negative Urine Urobilinogen 0.2 Ur Leukocyte Esterase Negative Urine RBC 0-1/hpf Urine WBC 0-1/hpf Ur Squamous Epith Cells None seen Urine Bacteria None seen Ur Culture Indicated? Cult not indicated SARS-CoV-2 (PCR) Negative Influenza A (RT-PCR) Flu a negative Influenza B (RT-PCR) Flu b negative RSV (PCR) Negative [facility] Medical History Asthma (02/02/11) Chronic abdominal pain Dorsalgia (02/02/11) Generalized anxiety disorder (02/02/11) Hypercalcemia Hyperlipidemia Obstructive sleep apnea syndrome (02/02/11) Pancreatitis (~2011) Scoliosis (~1982) Smoker Smoker unmotivated to quit (02/02/11) Smoking greater than 30 pack years Tinnitus (2005) Surgical History Anesthesia Status post cholecystectomy (2011) Family History Father No problems noted. Mother No problems noted. Brother No problems noted. Sister No problems noted. Family/Other No problems noted. Family/Other No problems noted. Social History household members: family and children Smoking Status: Current some day smoker alcohol intake: former Assessment & Plan Assessment & Plan narrative: # possible TB vs MAC vs fungal pneumonia -CT chest showed left upper lobe cavitary lesion vs spiculated nodule which Dr. Henriquez cardiothoracic surg did not think was cancer but more likely infectious -Dr. Henriquez recommending transfer for ID consultation -[place] ID recommended starting cefepime, vanc and voriconazole as well as obtaining labs below -ordered fungitell, galactomannin, cocci IgG/IgM, cryptococcal Ag and quant gold -patient now in airborne isolation -transferring patient to higher level of care # spontaneous tension pneumothorax, present on admissionm -etiology possibly related to RUL mass and recent biopsy in Mar 2022 -chest tube in place to suction, repeat CXR with improvement in PTX and resolution of mediastinal shift -gen surg consulted to manage tube, recommending transfer for possible cardiothoracic surg management -daily CXR's -oxycodone and dilaudid PRN for pain due to tube # acute hypoxic resp failure, present on admission. resolved. -secondary to PTX, was satting 87% on room air and needed up to 4L NC -now weaned to room air with chest placement # severely underweight with evidence of protein calorie malnutrition -patient is only 58kg with BMI 15, evidence of temporal wasting on exam, albumin on low end 3.5 -recommend tube feeds for immediate nutrition correction, as patient has poor po intake due to denture problems -dietary consulted for recs on TPN vs tube feeds -recommend ongoing outpatient tube feeds so will consult [employer]CO[employer] UNLOADER for infusion solutions setup # tobacco dependence and COPD -nicotine patch ordered -albuterol PRN # anxiety -continue home klonopin and wellbutrin Code status is full code. COVID negative. DVT prophylaxis with lovenox. Proxy is sister Keyla. I have reviewed home meds and used all available resources to reconcile the home meds. Dispo: Attempting transfer to higher level of care for ID consult. Time Spent With Patient Critical Care time: I spent a total of [] minutes of critical care time on this patient's care today; this time is exclusive of procedural time.
[2022-06-13] MEDS: ALBUTEROL/IPRATROPIUM 3 ML AMPUL INH ×3 (07:09→19:34)
[2022-06-13 07:33] LABS: Add Manual Diff / Slide Review NO; Basophils Absolute Auto 100 /uL (0-100); Eosinophils Absolute Auto 200 /uL (0-450); Eosinophils Percent Auto 1.6 % (2-4); Hematocrit 29.8 % (41-53); Hemoglobin 9.8 g/dL (13.5-17.5); Lymphocytes Absolute Auto 1300 /uL (1100-4500); Lymphocytes Percent Auto 8.9 % (25-40); Mean Corpuscular HGB Conc 32.8 % (30-36); Mean Corpuscular Hemoglobin 28.4 PG (26-34); Mean Corpuscular Volume 86.4 fL (80-100); Monocytes Absolute Auto 1000 /uL (0-900); Neutrophils Absolute Auto 12200 /uL (1500-7000); Neutrophils Percent Auto 81.5 % (50-75); Platelet Count 624 X10^3/uL (150-400); Red Blood Cell Count 3.45 X10^6/uL (4.5-5.9); Red Cell Distribution Width 14.8 % (11.6-14.8); White Blood Cell Count 14.9 X10^3/uL (4.5-11.0)
[2022-06-13 07:38] LABS: BUN Creatinine Ratio 22.2 (6-22); Blood Urea Nitrogen 12 mg/dL (9-20); Calcium 8.6 mg/dL (8.4-10.2); Carbon Dioxide 29 mmol/L (22-32); Chloride 100 mmol/L (98-107); Estimated Glomerular Filt Rate > 60 mL/min (>60); Glucose 130 mg/dL (70-100); HEMOLYSIS < 15 (0-50); Potassium 4.2 mmol/L (3.4-5.1); Sodium 135 mmol/L (137-145)
[2022-06-13 07:55] LABS: Procalcitonin 0.14 ng/mL (<0.5)
[2022-06-13] MEDS: SODIUM CHLORIDE 0.9% 1,000 ML 75 ML IV (08:30)
[2022-06-13] MEDS: NICOTINE 21 MG PATCH TOP (08:33)
[2022-06-13] MEDS: ENOXAPARIN 40 MG/0.4 ML SYRINGE SUBCUT (08:33)
--- NOTE | 2022-06-13 10:33 | CM.DANOTE ---
DC Plan Assessment: Patient is a 56 yr old male who is here for malnutrition and pnumothorax with Chest tube. CM met with patient at the bedside and explained role Patient stated understanding. Patient was alert and oriented x4 during meeting. 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 Patients 27 yr old son also lives with them and his sister Keyla lives near by as well. Patient presents very thin and looks under nourished. CM asked patient if he has been eating at home and he states that his dentures hurt so he tends not to eat much and has lost a lot of weight in the last year. CM spoke with Dr. Bran who placed a dietary consult to help determine best options to increase nutritional intake. Patient other then that was very pleasant. Patient currently does not drive at his baseline his sister or son help with all the transportation needs. Patient is independent at baseline and does not use any DME. patient currently looks weak and decommissioned and is open to HH services if determined to need them at DC. Patient shown IPAD list of HH options and patient stated he was good with any option. [facility] is on the schedule rotation so CM will contact [facility] and send out F2F. I: [facility] and Medicaid P: plan A: Dc home when medically stable with sister Keyla providing transportation home,,, plan B: DC home with [facility] if needed to build strength pending PT evaluation and recommendation. Lisa Crowder RNpackaging inspector Discharge Planning/Care Management CM Discharge Assessment Start: 06/13/22 10:26 Freq: Status: Active Protocol: Document 06/13/22 10:26 HS (Rec: 06/13/22 10:33 [id number]) Discharge Planning Assessment Assigned High Pressure Firer Lisa Crowder RNpackaging inspector DPOA/Assigned Designee Name Keyla Webb- Contact Information [phone] Advance Directives? No Advance Directives on File No History Provided By Patient,Medical Record Has Patient been admitted in last 30 No days? Prior Living Arrangements House Household Members family,children Comment Lives with mother who has alzhimers and 27 yr old son Type of transporation used prior to Relies on Others admit Comment Patient does not currently drive depends on his son and sister Independent with ADL's Yes Is patient alert and oriented? 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 Barriers to Discharge No Discharge Plan Home Transportation Arrangement Patients sister Keyla will transport the patient home Referrals Initiated Home Health Additional Comment Will send out HH referral to [facility] per conversation with patient and will follow to determine if he will need HH resources at DC or not If patient plan is home with home health Yes : Has signed face to face form been completed? Medicare Choice List Provided Yes SNF/HH Preference [facility] Whiteboard Updated in Patient Room with Yes name and ext. # of High Pressure Firer Review Status In Process Next Review Type Continued Stay Review
--- NOTE | 2022-06-13 10:36 | PM.CN ---
History of Present Illness Consult details Date Patient Seen: 06/13/22 Time Patient Seen: 10:37 Chief complaint: SOB/Chest pain Narrative: 56-year-old male with COPD admitted for a spontaneous pneumothorax in the setting of likely metastatic lung cancer. He has a large right upper lobe mass with possible metastatic disease to the right hilum. He has been evaluated by Dr. Marlon brunner at [facility] with plan to undergo ultrasound guided endo bronchial biopsy. He presented yesterday to [facility] with shortness of breath was found to have a moderate size right pneumothorax. A chest tube was placed in the emergency room, the pneumothorax is decreased in size but not resolved. Today he feels back to baseline in terms of his shortness of breath. Meds Home Medications and Allergies Home Medications Medication Instructions Recorded Confirmed Type fluticasone propionate 110 2 puff inhalation BID #12 grams 02/18/22 06/12/22 Rx mcg/actuation HFA aerosol inhaler (Flovent HFA) inhalational spacing device #1 ea 02/22/22 06/12/22 Rx (Flexichamber spacer) acetaminophen 500 mg tablet 500 mg PO QID PRN Pain (Scale 03/03/22 06/12/22 History (Tylenol Extra Strength) Score 4-6) albuterol sulfate 90 mcg/actuation 2 inh inhalation Q6-8H PRN 04/15/22 06/12/22 Rx aerosol inhaler (Ventolin HFA) shortness of breath or wheezing #18 grams clonazepam 1 mg tablet 1 mg PO TID PRN anxiety #90 tabs 04/23/22 06/12/22 Rx Allergies Allergy/AdvReac Type Severity Reaction Status Date / Time lorazepam [LORAZEPAM] Allergy Mild INCREASE Verified 06/12/22 10:55 PARANOIA Exam Vital Signs (past 8 hours): - 06/13/22 05:06 06/13/22 07:09 06/13/22 09:58 Temperature 98.0 F Pulse Rate 116 H Respiratory Rate 18 Blood Pressure 127/81 Pulse Oximetry 96 95 Oxygen Delivery Method Room Air Room Air Oxygen Flow Rate 0 Oxygen Delivery Method Room Air Oxygen Flow Rate 0 Narrative Exam Narrative: general adult man who appears much older than his age. cachectic, With significant temporal wasting chest nonlabored respiration. Bilateral wheezing.. Right chest tube to suction with leak Objective Labs Result Diagrams: 06/13/22 06:30 06/13/22 06:30 Labs: Laboratory Results - last 24 hr 06/12/22 06/12/22 06/12/22 10:50 10:56 10:56 WBC 19.8 H RBC 3.84 L Hgb 11.2 L Hct 33.4 L MCV 87.0 MCH 29.2 MCHC 33.5 RDW 14.6 Plt Count 754 H Neut % (Auto) 83.8 H Lymph % (Auto) 7.9 L [place] % (Auto) 7.4 Eos % (Auto) 0.6 L Baso % (Auto) 0.3 Neut # (Auto) 18249 H Lymph # (Auto) 1600 [place] # (Auto) 1500 H Eos # (Auto) 100 Baso # (Auto) 100 Platelet Estimate Increased on smear RBC Morphology Normal morphology PT 16.5 H INR 1.4 H Sodium Potassium Chloride Carbon Dioxide BUN Creatinine Estimated GFR BUN/Creatinine Ratio Glucose Lactate Calcium Magnesium 2.5 H Total Bilirubin AST ALT Alkaline Phosphatase Troponin I NT-Pro-B Natriuret Pep Total Protein Albumin Globulin Albumin/Globulin Ratio Procalcitonin Urine Color Urine Appearance Urine pH Ur Specific [place] Urine Protein Urine Glucose (UA) Urine Ketones Urine Occult Blood Urine Nitrate Urine Bilirubin Urine Urobilinogen Ur Leukocyte Esterase Urine RBC Urine WBC Ur Squamous Epith Cells Urine Bacteria Ur Culture Indicated? SARS-CoV-2 (PCR) Influenza A (RT-PCR) Influenza B (RT-PCR) RSV (PCR) 06/12/22 06/12/22 06/12/22 10:56 10:56 10:56 WBC RBC Hgb Hct MCV MCH MCHC RDW Plt Count Neut % (Auto) Lymph % (Auto) [place] % (Auto) Eos % (Auto) Baso % (Auto) Neut # (Auto) Lymph # (Auto) [place] # (Auto) Eos # (Auto) Baso # (Auto) Platelet Estimate RBC Morphology PT INR Sodium 136 L Potassium 4.0 Chloride 97 L Carbon Dioxide 28 BUN 16 Creatinine 0.52 L Estimated GFR > 60 BUN/Creatinine Ratio 30.8 H Glucose 162 H Lactate 3.3 H Calcium 9.5 Magnesium Total Bilirubin 0.4 AST 34 ALT 33 Alkaline Phosphatase 127 H Troponin I < 0.012 NT-Pro-B Natriuret Pep 310 H Total Protein 8.6 H Albumin 3.5 Globulin 5.1 H Albumin/Globulin Ratio 0.7 L Procalcitonin 0.16 Urine Color Urine Appearance Urine pH Ur Specific [place] Urine Protein Urine Glucose (UA) Urine Ketones Urine Occult Blood Urine Nitrate Urine Bilirubin Urine Urobilinogen Ur Leukocyte Esterase Urine RBC Urine WBC Ur Squamous Epith Cells Urine Bacteria Ur Culture Indicated? SARS-CoV-2 (PCR) Influenza A (RT-PCR) Influenza B (RT-PCR) RSV (PCR) 06/12/22 06/12/22 06/12/22 11:10 13:20 17:14 WBC RBC Hgb Hct MCV MCH MCHC RDW Plt Count Neut % (Auto) Lymph % (Auto) [place] % (Auto) Eos % (Auto) Baso % (Auto) Neut # (Auto) Lymph # (Auto) [place] # (Auto) Eos # (Auto) Baso # (Auto) Platelet Estimate RBC Morphology PT INR Sodium Potassium Chloride Carbon Dioxide BUN Creatinine Estimated GFR BUN/Creatinine Ratio Glucose Lactate 1.5 Calcium Magnesium Total Bilirubin AST ALT Alkaline Phosphatase Troponin I NT-Pro-B Natriuret Pep Total Protein Albumin Globulin Albumin/Globulin Ratio Procalcitonin Urine Color Yellow Urine Appearance Clear Urine pH 6.5 Ur Specific [place] 1.010 Urine Protein Trace H Urine Glucose (UA) Negative Urine Ketones Negative Urine Occult Blood Negative Urine Nitrate Negative Urine Bilirubin Negative Urine Urobilinogen 0.2 Ur Leukocyte Esterase Negative Urine RBC 0-1/hpf Urine WBC 0-1/hpf Ur Squamous Epith Cells None seen Urine Bacteria None seen Ur Culture Indicated? Cult not indicated SARS-CoV-2 (PCR) Negative Influenza A (RT-PCR) Flu a negative Influenza B (RT-PCR) Flu b negative RSV (PCR) Negative 06/13/22 06/13/22 06/13/22 06:30 06:30 06:30 WBC 14.9 H RBC 3.45 L Hgb 9.8 L Hct 29.8 L MCV 86.4 MCH 28.4 MCHC 32.8 RDW 14.8 Plt Count 624 H Neut % (Auto) 81.5 H Lymph % (Auto) 8.9 L [place] % (Auto) 7.0 Eos % (Auto) 1.6 L Baso % (Auto) 1.0 Neut # (Auto) 25259 H Lymph # (Auto) 1300 [place] # (Auto) 1000 H Eos # (Auto) 200 Baso # (Auto) 100 Platelet Estimate RBC Morphology PT INR Sodium 135 L Potassium 4.2 Chloride 100 Carbon Dioxide 29 BUN 12 Creatinine 0.54 L Estimated GFR > 60 BUN/Creatinine Ratio 22.2 H Glucose 130 H Lactate Calcium 8.6 Magnesium Total Bilirubin AST ALT Alkaline Phosphatase Troponin I NT-Pro-B Natriuret Pep Total Protein Albumin Globulin Albumin/Globulin Ratio Procalcitonin 0.14 Urine Color Urine Appearance Urine pH Ur Specific [place] Urine Protein Urine Glucose (UA) Urine Ketones Urine Occult Blood Urine Nitrate Urine Bilirubin Urine Urobilinogen Ur Leukocyte Esterase Urine RBC Urine WBC Ur Squamous Epith Cells Urine Bacteria Ur Culture Indicated? SARS-CoV-2 (PCR) Influenza A (RT-PCR) Influenza B (RT-PCR) RSV (PCR) [facility] Medical History Asthma (02/02/11) Chronic abdominal pain Dorsalgia (02/02/11) Generalized anxiety disorder (02/02/11) Hypercalcemia Hyperlipidemia Obstructive sleep apnea syndrome (02/02/11) Pancreatitis (~2011) Scoliosis (~1982) Smoker Smoker unmotivated to quit (02/02/11) Smoking greater than 30 pack years Tinnitus (2005) Surgical History Anesthesia Status post cholecystectomy (2011) Family History Father No problems noted. Mother No problems noted. Brother No problems noted. Sister No problems noted. Family/Other No problems noted. Family/Other No problems noted. Social History household members: family and children Tobacco & Substance Use Smoking Status: Current some day smoker alcohol intake: former Assessment & Plan Assessment and plan (1) Pneumothorax on right: Status: Acute Assessment & Plan narrative: 56-year-old man with advanced COPD likely metastatic lung cancer from the right upper lobe admitted for a right pneumothorax. Chest tube has been placed with interval improvement of the pneumothorax but with air leak. Given his advanced lung disease it will be difficult to heal this pneumothorax. -Continue chest tube to suction. -Consider transfer to a facility with thoracic surgery capability. Time Spent With Patient Critical Care time: I spent a total of [] minutes of critical care time on this patient's care today; this time is exclusive of procedural time.
--- NOTE | 2022-06-13 10:57 | DI.CT.S_ITS ---
PROCEDURE: CT CHEST W CON INDICATIONS: possible lung cancer TECHNIQUE: After the administration of intravenous contrast, 5 mm thick sections acquired from the pulmonary apices to the posterior costophrenic angles. 1 mm axial lung, 5 mm thick coronal and sagittal reformats and 7 mm axial MIP were acquired. For radiation dose reduction, the following was used: automated exposure control, adjustment of mA and/or kV according to patient size. COMPARISON: [facility], CT, CT LUNG LOW DOSE SCREENING, 01/28/2022, 11:21. [facility], NM, NM PET CT FUSION SKULL 2 THIGH, 02/17/2022, 10:29. [facility], CR, XR CHEST 1V, 06/13/2022, 6:29. FINDINGS: Image quality: Excellent. Lungs and pleura: There is a 2.2 x 2.3 cm spiculated nodule in the right upper lobe. Small right pneumothorax is present, as well as a small pleural effusion. There is a chest tube on the right side. Irregular opacity in the left apex measuring 3.4 x 7.9 cm. Irregular ground-glass nodules or nodular infiltrates are seen in the right posterior right upper lobe and lower lobe. Central and peripheral airways are patent and normal in caliber. Mediastinum: Heart size is normal. No pericardial effusion. Mildly prominent mediastinal or hilar lymph nodes are present. Thoracic aorta and central pulmonary arteries are normal in size. Esophagus is normal in caliber. No hiatal hernia. Bones and chest wall: No suspicious bony lesions. No vertebral body compression fractures. No axillary or supraclavicular adenopathy by size criteria. Thyroid gland is normal . Abdomen: Visualized upper abdominal solid organs appear normal. Upper abdominal bowel loops are normal in caliber. IMPRESSION: 1. A spiculated nodule in the right upper lobe suspicious for lung cancer. 2. Moderate pneumothorax. There is a chest tube on the right side. Pneumothorax are similar in size compared to the chest x-ray. 3. Irregular ground-glass nodules or nodular infiltrates in the right upper lobe and right lower lobe suspicious for pneumonia. 4. A large irregular density in the left apex, measuring 3.4 x 7.9 cm, most likely infectious or inflammatory etiology. Neoplasm cannot be excluded. Recommend follow-up to resolution. 5. Mildly prominent mediastinal hilar lymph nodes. This finding is nonspecific and may be secondary to infectious, inflammatory or neoplastic etiology. Recommend clinical correlation and follow up. Dictated by: Ramesh Taylor M.D. on 06/13/2022 at 15:30 Approved by: Ramesh Taylor M.D. on 06/13/2022 at 16:34
--- NOTE | 2022-06-13 13:16 | PC.NURSE ---
Day shift: Allevyn dressings placed on Pt clarke areas/coccyx/lower hip bones (at approx 1300). Tolerated well. Pt is very weak and needs help moving BLE's at this time. Pt's family members in to visit today at approx 1230. Family here for approx 30 minutes. Pt's Sister was updated by this loan underwriter. Pull up brief placed on Pt today also. He does c/o the brief being uncomfortable. Pt does also state that he has loose stools at times and uses a brief at home. Call light in reach and bed alarm is on.
--- NOTE | 2022-06-13 13:45 | PC.NURSE ---
Day shift: Pt off unit for CT at approx 1335.
--- NOTE | 2022-06-13 14:02 | PC.NURSE ---
Day shift: Back from CT at approx 1400. back on wall suction for chest tube. Refused SCD's and said they bother hime. Informed of SCD's use and what they help prevent but Pt still refused them. Pt tolerated CT well. Call light in reach and bed alarm.
--- NOTE | 2022-06-13 17:57 | PC.NURSE ---
Day shift: Pt transfered to room 230 at approx 1745. All of Pt's items in room 204 are now in room 230. Report given to [employer]UT[employer] ARCHITECT Grace by this investigative writer as well.
[2022-06-13] MEDS: BUDESONIDE 0.5 MG/2 ML NEB INH (19:34)
[2022-06-13] MEDS: VANCOMYCIN 1,000 MG/200 ML PIGGYBACK 200 MG IV (20:16)
[2022-06-13] MEDS: CEFEPIME 2 GM in SODIUM CHLORIDE 0.9% 100 ML IV (20:16)
[2022-06-13] MEDS: PANTOPRAZOLE DR 40 MG TABLET PO (20:17)
[2022-06-13] MEDS: SODIUM CHLORIDE 0.9% FLUSH 10 ML IV (20:18)
[2022-06-14 02:25] VITALS: BP 104/62; PULSE 107; RESP 16; TEMP 36.6; O2SAT 97
[2022-06-14 04:43] LABS: Add Manual Diff / Slide Review NO; Basophils Absolute Auto 100 /uL (0-100); Basophils Percent Auto 0.8 % (0-2); Eosinophils Absolute Auto 400 /uL (0-450); Eosinophils Percent Auto 3.4 % (2-4); Hematocrit 29.4 % (41-53); Hemoglobin 9.5 g/dL (13.5-17.5); Lymphocytes Absolute Auto 1500 /uL (1100-4500); Lymphocytes Percent Auto 12.5 % (25-40); Mean Corpuscular HGB Conc 32.4 % (30-36); Mean Corpuscular Hemoglobin 28.1 PG (26-34); Mean Corpuscular Volume 86.9 fL (80-100); Monocytes Absolute Auto 1300 /uL (0-900); Monocytes Percent Auto 10.6 % (3-14); Neutrophils Absolute Auto 8700 /uL (1500-7000); Neutrophils Percent Auto 72.7 % (50-75); Platelet Count 598 X10^3/uL (150-400); Red Blood Cell Count 3.38 X10^6/uL (4.5-5.9); Red Cell Distribution Width 14.4 % (11.6-14.8)
[2022-06-14 04:51] LABS: BUN Creatinine Ratio 26.9 (6-22); Blood Urea Nitrogen 14 mg/dL (9-20); Calcium 8.4 mg/dL (8.4-10.2); Carbon Dioxide 30 mmol/L (22-32); Chloride 101 mmol/L (98-107); Estimated Glomerular Filt Rate > 60 mL/min (>60); Glucose 107 mg/dL (70-100); HEMOLYSIS < 15 (0-50); Potassium 4.2 mmol/L (3.4-5.1); Sodium 137 mmol/L (137-145)
[2022-06-14] MEDS: CEFEPIME 2 GM in SODIUM CHLORIDE 0.9% 100 ML IV ×2 (05:41→16:22)
[2022-06-14 06:00] VITALS: BP 123/72; PULSE 106; RESP 16; O2SAT 96
[2022-06-14] MEDS: VANCOMYCIN 1,000 MG/200 ML PIGGYBACK 200 MG IV ×3 (06:17→22:47)
[2022-06-14] MEDS: clonazePAM 0.5 MG TABLET 1 MG PO ×3 (06:19→22:47)
[2022-06-14] MEDS: OXYCODONE IR 5 MG TABLET PO ×4 (06:19→22:47)
--- NOTE | 2022-06-14 07:00 | DI.RAD.S_ITS ---
PROCEDURE: XR CHEST 1V INDICATIONS: assess for pneumothorax resolution TECHNIQUE: One view of the chest was acquired. COMPARISON: [facility], , XR CHEST 1V, 06/13/2022, 6:29. FINDINGS: Surgical changes and devices: Right chest tube is noted overlying the right mid lung. Lungs and pleura: Previous right pneumothorax persists although slightly less prominent measuring 1.5 cm compared to 2.0 cm. No midline shift. Persistent appearance of biapical opacities most severe on the left. Mediastinum: Mediastinal contours appear normal. Heart size is enlarged. Bones and chest wall: No suspicious bony lesions. Overlying soft tissues appear unremarkable. IMPRESSION: Persistent although decreased right pneumothorax. Dictated by: Nidhi Walsh M.D. on 06/14/2022 at 10:58 Approved by: Nidhi Walsh M.D. on 06/14/2022 at 10:59
[2022-06-14] MEDS: BUDESONIDE 0.5 MG/2 ML NEB INH (07:34)
[2022-06-14] MEDS: ALBUTEROL/IPRATROPIUM 3 ML AMPUL INH ×2 (07:34→13:16)
[2022-06-14] MEDS: NICOTINE 21 MG PATCH TOP (08:25)
[2022-06-14] MEDS: ENOXAPARIN 40 MG/0.4 ML SYRINGE SUBCUT (08:25)
[2022-06-14] MEDS: SODIUM CHLORIDE 0.9% FLUSH 10 ML IV ×2 (08:25→20:23)
[2022-06-14] MEDS: VORICONAZOLE 200 MG TABLET PO ×2 (10:23→20:23)
--- NOTE | 2022-06-14 10:31 | DIET.CONS ---
Dietary Consultation Note Admission Date: 06/12/2022 14:30 Assessment: 56y M admitted for SOB requiring chest tube placement for pneumothorax and imaging concerning for lung cancer vs fungal/infectious disease of unknown etiology referred to nutrition for malnutrition (MNA 4, BMI 15.3). Ht: 195.58 cm Wt: 58.513 kg BMI: 15.3 (severe) UBW: 78-80kg Last BM: 06/11/22 (06/12/22 14:49) MNA: 4 Vinny Score: 16 Pt has gone through initial workup with oncology and pulmonology as outpatient, still inconclusive. 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 Pt reports weight loss over the past 2y secondary to poorly fitting dentures that hurt when he masticates and chronic SOB from his COPD and current lung etiology. Nutrition focus physical exam shows severely cachectic male who looks 20y older than actual age. Pt with significant weakness, using briefs at baseline for incontinence as having difficulty making it to bathroom. Pt with some redness and breakdown on coccyx per nursing report. Pt with 6% unintentional weight loss in 5mo and 15% over two years, however, pts BMI severe at 15.3. Pt declines artificial nutrition at this time, does not consent to NG tube feeding though pt would benefit from nutrition support. Plan to optimize PO intake using ONS and high pro/high kcal diet with dysphagia mechanical soft textures. Diet: 06/13/22 Breakfast Dysphagia Diet Diet Modifications: Liquid consistency: Normal/Thin Food texture: Dysphagia Mechanical Soft Nutrition Percent Meal Consumed ensure 06/12/22 17:41 Labs: RBC 3.38 X10^6/uL (4.5-5.9) L 06/14/22 04:08 Hgb 9.5 g/dL (13.5-17.5) L 06/14/22 04:08 Hct 29.4 % (41-53) L 06/14/22 04:08 Creatinine 0.52 mg/dL (0.66-1.25) L 06/14/22 04:08 Lactate 1.5 mmol/L (0.7-2.1) 06/12/22 13:20 NT-Pro-B Natriuret Pep 310 pg/mL (<125) H 06/12/22 10:56 Nutrition Diagnosis: Severe Acute on Chronic Protein Calorie Malnutrition r/t inadequate PO intake aeb BMI 15.3 (severe), MNA score 4 (malnourished) on admission, pt would benefit from artificial enteral nutrition but pt requests PO intervention, pt with poor fitting dentures limiting PO intake and uncharacterized lung infection with SOB limiting appetite and ability to eat. -The patient is at much higher risk for medical and surgical complications because of his malnutrition. This increases the difficulty and complexity of medical and surgical interventions and increases the chances of poor outcomes such as morbidity and mortality. Interventions: 1. To support nutrition status while inpatient, providing three ONS Ensure Enlives daily providing 50% kcals and 67% protein needs in addition to meal trays. Pt to sip ONS between meals as snacks. 2. To support nutrition status while inpatient, providing Dysphagia Mechanical Soft High Protein/High kcal diet with nursing to call pts preferences to kitchen Unit Host each meal. 3. To support nutrition status upon d/c, RD providing ONS reccs with coupons to continue tid ONS Ensure Plus until pt BMI >18. EER: 2,000 kcals (35kcal/kg per PCM), 85-90g PRO (1.4-1.6g/kg per PCM) Monitoring/Evaluations: RD following daily, following PO intake and nutrient adequacy Electronically Signed by: Saira Casanova 06/14/22 10:31 Clinical Dietitian [address] [address]
--- NOTE | 2022-06-14 11:39 | CM.DPC ---
DCP Cont: Per MD, pt switched to ICU due to medical needs and fungal infection etiology still unclear at this time and pt remains with chest tube and per Surgeon recommendations occupational rehabilitation aide to attempt hospital transfer due to pneumothorax/chest tube needs. 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 Pt not yet appropriate medically for PT/OT eval orders. Plan: SW to follow for attempts at hospital transfer for higher level of care needs and if pt remains then eventual PT/OT towards confirming safe d/c home with new Sig HH referral made and sister support. Pt is primary CG to demented mother at baseline. NIMA Kitchen
[2022-06-14 12:45] VITALS: BP 122/70; PULSE 109; RESP 17; TEMP 36.8; O2SAT 97
[2022-06-14 13:46] LABS: Adenovirus Not Detected (Not Detect); B. parapertussis Not Detected (Not Detecte); Bordetella pertussis Not Detected (Not Detecte); Chlamydophila pneumoniae Not Detected (Not Detect); Coronavirus 229E Not Detected (Not Detect); Coronavirus HKU1 Not Detected (Not Detect); Coronavirus NL 63 Not Detected (Not Detect); Coronavirus OC43 Not Detected (Not Detect); Human Metapneumovirus Not Detected (Not Detect); Human Rhinovirus/Enterovirus Not Detected (Not Detect); Influenza A Not Detected (Not Detect); Influenza B Not Detected (Not Detect); Mycoplasma pneumoniae Not Detected (Not Detect); Parainfluenza Virus 1 Not Detected (Not Detect); Parainfluenza Virus 2 Not Detected (Not Detect); Parainfluenza Virus 3 Not Detected (Not Detect); Parainfluenza Virus 4 Not Detected (Not Detect); Respiratory Syncytial Virus Not Detected (Not Detect); SARS- CoV-2 Not Detected (Not Detecte)
--- NOTE | 2022-06-14 14:57 | PM.PNPO.1 ---
Subjective Subjective Interval history: Patient says that overall he is feeling much better than when he 1st presented. His shortness of breath is improved. He is unclear about some aspects of his medical care and his health literacy seems not great. I asked him about weight loss and he said he has always been skinny. Exam Vital Signs (past 8 hours): - 06/14/22 07:00 06/14/22 12:45 Temperature 98.2 F Pulse Rate 109 H Respiratory Rate 17 Blood Pressure 122/70 Pulse Oximetry 97 Oxygen Delivery Method Room Air Oxygen Flow Rate 0 Oxygen Delivery Method Room Air Oxygen Flow Rate 0 Narrative Exam Narrative: He is alert and oriented pleasant and in no acute distress. He is cachectic with temporal wasting, and each rib can be seen. He has the appearance of severe malnutrition. He has a chest tube in place in the right thorax there is a persistent air leak. It is placed to wall suction. His breathing is nonlabored at rest and his chest rise is equal bilaterally Objective Labs Result Diagrams: 06/14/22 04:08 06/14/22 04:08 Labs: Laboratory Results - last 24 hr 06/13/22 06/14/22 06/14/22 17:53 04:08 04:08 WBC 12.0 H RBC 3.38 L Hgb 9.5 L Hct 29.4 L MCV 86.9 MCH 28.1 MCHC 32.4 RDW 14.4 Plt Count 598 H Neut % (Auto) 72.7 Lymph % (Auto) 12.5 L [place] % (Auto) 10.6 Eos % (Auto) 3.4 Baso % (Auto) 0.8 Neut # (Auto) 8700 H Lymph # (Auto) 1500 [place] # (Auto) 1300 H Eos # (Auto) 400 Baso # (Auto) 100 Sodium 137 Potassium 4.2 Chloride 101 Carbon Dioxide 30 BUN 14 Creatinine 0.52 L Estimated GFR > 60 BUN/Creatinine Ratio 26.9 H Glucose 107 H Calcium 8.4 Nasal Screen MRSA (PCR) Negative for mrsa Chlamy pneumoniae PCR Adenovirus (PCR) B. pertussis DNA (PCR) B.parapertussis DNA PCR Coronavirus OC43 (PCR) Coronavirus HKU1 (PCR) Coronavirus 229E (PCR) SARS-CoV-2 (PCR) Coronavirus NL63 (PCR) Human Metapneumovir PCR Influenza Type A (PCR) Influenza Type B (PCR) M. pneumoniae (PCR) Parainfluenza 1 (PCR) Parainfluenza 2 (PCR) Parainfluenza 3 (PCR) Parainfluenza 4 (PCR) RSV (PCR) Entero/Rhino (PCR) 06/14/22 12:00 WBC RBC Hgb Hct MCV MCH MCHC RDW Plt Count Neut % (Auto) Lymph % (Auto) [place] % (Auto) Eos % (Auto) Baso % (Auto) Neut # (Auto) Lymph # (Auto) [place] # (Auto) Eos # (Auto) Baso # (Auto) Sodium Potassium Chloride Carbon Dioxide BUN Creatinine Estimated GFR BUN/Creatinine Ratio Glucose Calcium Nasal Screen MRSA (PCR) Chlamy pneumoniae PCR Not detected Adenovirus (PCR) Not detected B. pertussis DNA (PCR) Not detected B.parapertussis DNA PCR Not detected Coronavirus OC43 (PCR) Not detected Coronavirus HKU1 (PCR) Not detected Coronavirus 229E (PCR) Not detected SARS-CoV-2 (PCR) Not detected Coronavirus NL63 (PCR) Not detected Human Metapneumovir PCR Not detected Influenza Type A (PCR) Not detected Influenza Type B (PCR) Not detected M. pneumoniae (PCR) Not detected Parainfluenza 1 (PCR) Not detected Parainfluenza 2 (PCR) Not detected Parainfluenza 3 (PCR) Not detected Parainfluenza 4 (PCR) Not detected RSV (PCR) Not detected Entero/Rhino (PCR) Not detected [facility] Medical History Asthma (02/02/11) Chronic abdominal pain Dorsalgia (02/02/11) Generalized anxiety disorder (02/02/11) Hypercalcemia Hyperlipidemia Obstructive sleep apnea syndrome (02/02/11) Pancreatitis (~2011) Scoliosis (~1982) Smoker Smoker unmotivated to quit (02/02/11) Smoking greater than 30 pack years Tinnitus (2005) Surgical History Anesthesia Status post cholecystectomy (2011) Family History Father No problems noted. Mother No problems noted. Brother No problems noted. Sister No problems noted. Family/Other No problems noted. Family/Other No problems noted. Social History household members: family and children Smoking Status: Current some day smoker alcohol intake: former Assessment & Plan Post-op Assessment and plan (1) Malnutrition related to chronic disease: (2) Pneumothorax on right: (3) Lung mass: Assessment and Plan narrative: There is some residual pneumothorax after the small pigtail chest tube placement. However there has been some resolution and clinically the patient is doing well so I will observe this for today however there is always an option to switch it out for a larger tube and in an effort to better drain the residual air. The tube is on wall suction for now and we will try to switch it to water seal maybe tomorrow. There is an air leak. I discussed the case directly with the hospitalist on-call and he was able to obtain previous records. They have also sent some additional testing to determine the etiology of this large lung mass. Once we get a more clear idea of the etiology then more simple and clear discussion should be had with the patient that he understands better. Transfer has been discussed but there are no available beds nearby. For now I think we can confirm a diagnosis and if it is infectious then we can treat the lesion. Meanwhile caring for the pneumothorax with the chest tube. Will follow.
--- NOTE | 2022-06-14 16:27 | P.PN_ITS ---
Subjective Subjective Date Patient Seen: 06/14/22 Time Patient Seen: 08:00 Interval history: Today he states he has no shortness of breath. No pain. He is quite hard to hear as his voice is very soft. Exam Vital Signs (past 8 hours): - 06/14/22 12:45 Temperature 98.2 F Pulse Rate 109 H Respiratory Rate 17 Blood Pressure 122/70 Pulse Oximetry 97 Oxygen Flow Rate 0 Oxygen Delivery Method Room Air Oxygen Flow Rate 0 Narrative Exam Narrative: GEN: no acute distress, extremely thin male, cachectic HEENT: temporal wasting noted PULM: breath sounds present bilaterally, no wheezes or rales. Chest tube on right side. ABD: soft, nontender, nondistended, no organomegaly EXT: warm and well perfused with no edema NEURO: awake, alert, oriented, no focal deficits Objective Labs Result Diagrams: 06/14/22 04:08 06/14/22 04:08 Labs: Laboratory Results - last 24 hr 06/13/22 06/14/22 06/14/22 17:53 04:08 04:08 WBC 12.0 H RBC 3.38 L Hgb 9.5 L Hct 29.4 L MCV 86.9 MCH 28.1 MCHC 32.4 RDW 14.4 Plt Count 598 H Neut % (Auto) 72.7 Lymph % (Auto) 12.5 L Wilson % (Auto) 10.6 Eos % (Auto) 3.4 Baso % (Auto) 0.8 Neut # (Auto) 8700 H Lymph # (Auto) 1500 Wilson # (Auto) 1300 H Eos # (Auto) 400 Baso # (Auto) 100 Sodium 137 Potassium 4.2 Chloride 101 Carbon Dioxide 30 BUN 14 Creatinine 0.52 L Estimated GFR > 60 BUN/Creatinine Ratio 26.9 H Glucose 107 H Calcium 8.4 Nasal Screen MRSA (PCR) Negative for mrsa Chlamy pneumoniae PCR Adenovirus (PCR) B. pertussis DNA (PCR) B.parapertussis DNA PCR Coronavirus OC43 (PCR) Coronavirus HKU1 (PCR) Coronavirus 229E (PCR) SARS-CoV-2 (PCR) Coronavirus NL63 (PCR) Human Metapneumovir PCR Influenza Type A (PCR) Influenza Type B (PCR) M. pneumoniae (PCR) Parainfluenza 1 (PCR) Parainfluenza 2 (PCR) Parainfluenza 3 (PCR) Parainfluenza 4 (PCR) RSV (PCR) Entero/Rhino (PCR) 06/14/22 12:00 WBC RBC Hgb Hct MCV MCH MCHC RDW Plt Count Neut % (Auto) Lymph % (Auto) Wilson % (Auto) Eos % (Auto) Baso % (Auto) Neut # (Auto) Lymph # (Auto) Wilson # (Auto) Eos # (Auto) Baso # (Auto) Sodium Potassium Chloride Carbon Dioxide BUN Creatinine Estimated GFR BUN/Creatinine Ratio Glucose Calcium Nasal Screen MRSA (PCR) Chlamy pneumoniae PCR Not detected Adenovirus (PCR) Not detected B. pertussis DNA (PCR) Not detected B.parapertussis DNA PCR Not detected Coronavirus OC43 (PCR) Not detected Coronavirus HKU1 (PCR) Not detected Coronavirus 229E (PCR) Not detected SARS-CoV-2 (PCR) Not detected Coronavirus NL63 (PCR) Not detected Human Metapneumovir PCR Not detected Influenza Type A (PCR) Not detected Influenza Type B (PCR) Not detected M. pneumoniae (PCR) Not detected Parainfluenza 1 (PCR) Not detected Parainfluenza 2 (PCR) Not detected Parainfluenza 3 (PCR) Not detected Parainfluenza 4 (PCR) Not detected RSV (PCR) Not detected Entero/Rhino (PCR) Not detected [facility] Medical History Asthma (02/02/11) Chronic abdominal pain Dorsalgia (02/02/11) Generalized anxiety disorder (02/02/11) Hypercalcemia Hyperlipidemia Obstructive sleep apnea syndrome (02/02/11) Pancreatitis (~2011) Scoliosis (~1982) Smoker Smoker unmotivated to quit (02/02/11) Smoking greater than 30 pack years Tinnitus (2005) Surgical History Anesthesia Status post cholecystectomy (2011) Family History Father No problems noted. Mother No problems noted. Brother No problems noted. Sister No problems noted. Family/Other No problems noted. Family/Other No problems noted. Social History household members: family and children Smoking Status: Current some day smoker alcohol intake: former Assessment & Plan Assessment & Plan narrative: #bilateral lung infiltrates -CT chest showed left upper lobe cavitary lesion vs spiculated nodule which Dr. Henriquez cardiothoracic surg did not think was cancer but more likely infectious -Dr. Henriquez recommending transfer for ID consultation -[place] ID recommended starting cefepime, vanc and voriconazole as well as further workup -ordered fungitell, galactomannin, cocci IgG/IgM, cryptococcal Ag and quant gold -patient now in airborne isolation -transferring patient to higher level of care # spontaneous tension pneumothorax, present on admissionm -etiology possibly related to RUL mass and recent biopsy in Mar 2022 -chest tube in place to suction, repeat CXR with improvement in PTX and resolution of mediastinal shift -however persistent pneumothorax remains and air leak is noted -gen surg consulted to manage tube, recommending transfer for possible cardiothoracic surg management # acute hypoxic resp failure, present on admission. resolved. -secondary to PTX, was satting 87% on room air and needed up to 4L NC -now weaned to room air with chest tube placement # severely underweight with evidence of protein calorie malnutrition -patient is only 58kg with BMI 15, evidence of temporal wasting on exam, albumin on low end 3.5 -dietary consulted for recs on TPN vs tube feeds -discussed with patient about TPN or tube feeds and he declines now and wants to try with dietary supplements # tobacco dependence and COPD -nicotine patch ordered -albuterol PRN # anxiety -continue home klonopin and wellbutrin Code status is full code. COVID negative. DVT prophylaxis with lovenox. Proxy is sister Keyla. I have reviewed home meds and used all available resources to reconcile the home meds. Dispo: Attempting transfer to higher level of care for ID consult and thoracic surgery consult. Time Spent With Patient Critical Care time: I spent a total of [] minutes of critical care time on this patient's care today; this time is exclusive of procedural time.
[2022-06-14 17:46] VITALS: BP 124/67; PULSE 110; RESP 16; TEMP 36.6; O2SAT 96
[2022-06-14] MEDS: PANTOPRAZOLE DR 40 MG TABLET PO (20:23)
[2022-06-14] MEDS: ALBUTEROL 2.5 MG/3 ML NEB (ADULT) INH (20:34)
[2022-06-14 23:30] VITALS: BP 133/87; PULSE 112; RESP 16; TEMP 36.6; O2SAT 97
[2022-06-15] VITALS (20 sets, daily range): BP systolic 102–127; BP diastolic 62–77; PULSE 103–112; RESP 16–24; TEMP 36.6–37.1; O2SAT 89–100
[2022-06-15] MEDS: SCOPOLAMINE 1 PATCH TOP (00:39)
[2022-06-15] MEDS: ALBUTEROL 2.5 MG/3 ML NEB (ADULT) INH ×4 (04:14→19:38)
[2022-06-15] MEDS: CEFEPIME 2 GM in SODIUM CHLORIDE 0.9% 100 ML IV ×2 (05:20→16:57)
[2022-06-15 05:54] LABS: Hematocrit 29.7 % (41-53); Hemoglobin 9.9 g/dL (13.5-17.5); Mean Corpuscular HGB Conc 33.2 % (30-36); Mean Corpuscular Hemoglobin 28.9 PG (26-34); Mean Corpuscular Volume 87.2 fL (80-100); Platelet Count 614 X10^3/uL (150-400); Red Blood Cell Count 3.41 X10^6/uL (4.5-5.9); Red Cell Distribution Width 14.7 % (11.6-14.8); White Blood Cell Count 11.6 X10^3/uL (4.5-11.0)
[2022-06-15 06:06] LABS: Blood Urea Nitrogen 14 mg/dL (9-20); Calcium 8.8 mg/dL (8.4-10.2); Carbon Dioxide 32 mmol/L (22-32); Chloride 97 mmol/L (98-107); Estimated Glomerular Filt Rate > 60 mL/min (>60); Glucose 106 mg/dL (70-100); HEMOLYSIS < 15 (0-50); Potassium 4.1 mmol/L (3.4-5.1); Sodium 135 mmol/L (137-145)
[2022-06-15 06:10] LABS: Vancomycin Trough 19.4 ug/mL (10-20)
[2022-06-15] MEDS: VANCOMYCIN TROUGH 1 REQUEST MISC (06:32)
[2022-06-15] MEDS: clonazePAM 0.5 MG TABLET 1 MG PO ×3 (06:45→23:00)
[2022-06-15] MEDS: VANCOMYCIN 1,000 MG/200 ML PIGGYBACK 200 MG IV (06:45)
[2022-06-15] MEDS: OXYCODONE IR 5 MG TABLET PO ×4 (06:45→23:36)
--- NOTE | 2022-06-15 07:06 | DI.RAD.S_ITS ---
PROCEDURE: XR CHEST 1V INDICATIONS: change in pneumothorax? TECHNIQUE: One view of the chest was acquired. COMPARISON: [facility], CR, XR CHEST 1V, 06/13/2022, 6:29. [facility], CT, CT CHEST W CON, 06/13/2022, 13:31. [facility], CR, XR CHEST 1V, 06/14/2022, 6:42. FINDINGS: Surgical changes and devices: There is a thoracostomy tube on the right. Lungs and pleura: A moderate-sized right a pickle pneumothorax appears unchanged. Irregular airspace opacities are seen in the left upper lobe. No pleural effusions or pneumothorax. Mediastinum: Mediastinal contours appear normal. Heart size is normal. Bones and chest wall: No suspicious bony lesions. Overlying soft tissues appear unremarkable. IMPRESSION: 1. No significant change in the right pneumothorax. There is a thoracostomy tube on the right side. 2. Irregular airspace opacities in the right upper lobe. Differential diagnoses are pneumonia versus mass. Dictated by: Ramesh Taylor M.D. on 06/15/2022 at 8:21 Approved by: Ramesh Taylor M.D. on 06/15/2022 at 8:25
[2022-06-15] MEDS: VANCOMYCIN PEAK 1 REQUEST MISC (08:58)
[2022-06-15] MEDS: ENOXAPARIN 40 MG/0.4 ML SYRINGE SUBCUT (09:00)
[2022-06-15] MEDS: SODIUM CHLORIDE 0.9% FLUSH 10 ML IV ×2 (09:01→21:24)
[2022-06-15] MEDS: VORICONAZOLE 200 MG TABLET PO ×2 (09:01→21:24)
[2022-06-15] MEDS: NICOTINE 21 MG PATCH TOP (09:01)
[2022-06-15] MEDS: BUDESONIDE 0.5 MG/2 ML NEB INH (09:25)
[2022-06-15 09:48] LABS: Vancomycin Peak 30.4 ug/mL (20-40)
--- NOTE | 2022-06-15 11:18 | DIET.CONS ---
Dietary Consultation Note Admission Date: 06/12/2022 14:30 Pt with minimal PO intake, unclear if r/t dislike vs mouth pain. Pt unable to clarify to nursing staff. However, pt drinking 6 ONS Ensure Enlives daily which is meeting pts kcal/pro and micronutrient needs. Will continue ONS therapy and offer half portions of meal options to pts preference. [facility] and close follow by PCP to support nutrition repletion in OP setting. Ht: 195.58 cm Wt: 58.513 kg BMI: 15.3 Last BM: 06/11/22 (06/12/22 14:49) MNA: 4 Vinny Score: 15 Diet: 06/13/22 Breakfast Dysphagia Diet Diet Modifications: chop food, enlive tid Liquid consistency: Normal/Thin Food texture: Dysphagia Mechanical Soft Nutrition Percent Meal Consumed 0% 06/14/22 19:02 Percent Meal Consumed 0% 06/14/22 14:00 Percent Meal Consumed 0% 06/14/22 10:40 Labs: RBC 3.41 X10^6/uL (4.5-5.9) L 06/15/22 05:30 Hgb 9.9 g/dL (13.5-17.5) L 06/15/22 05:30 Hct 29.7 % (41-53) L 06/15/22 05:30 Creatinine 0.56 mg/dL (0.66-1.25) L 06/15/22 05:30 Lactate 1.5 mmol/L (0.7-2.1) 06/12/22 13:20 NT-Pro-B Natriuret Pep 310 pg/mL (<125) H 06/12/22 10:56 Nutrition Diagnosis: Severe Acute on Chronic Protein Calorie Malnutrition r/t inadequate PO intake aeb BMI 15.3 (severe), MNA score 4 (malnourished) on admission, pt would benefit from artificial enteral nutrition but pt requests PO intervention, pt with poor fitting dentures limiting PO intake and uncharacterized lung infection with SOB limiting appetite and ability to eat. -The patient is at much higher risk for medical and surgical complications because of his malnutrition. This increases the difficulty and complexity of medical and surgical interventions and increases the chances of poor outcomes such as morbidity and mortality. Interventions: 1. To support nutrition status while inpatient, providing three ONS Ensure Enlives daily providing 100% kcals and 120% protein needs. 2. To support nutrition status while inpatient, providing Dysphagia Mechanical Soft High Protein/High kcal diet at half portions. 3. To support nutrition status upon d/c, RD providing ONS reccs with coupons to continue tid ONS Ensure Plus until pt BMI >18. EER: 2,000 kcals (35kcal/kg per PCM), 85-90g PRO (1.4-1.6g/kg per PCM) Monitoring/Evaluations: RD following daily, following PO intake and nutrient adequacy Electronically Signed by: Saira Casanova 06/15/22 11:18 Clinical Dietitian [address] [id number]
--- NOTE | 2022-06-15 14:26 | P.PN_ITS ---
Subjective Subjective Date Patient Seen: 06/15/22 Time Patient Seen: 08:00 Interval history: He feels no shortness of breath today. He is motivated to take more PO intake with Ensure. He continues to decline tube feeds. Exam Vital Signs (past 8 hours): - 06/15/22 08:51 06/15/22 09:46 06/15/22 07:00 Temperature 98 F Pulse Rate 105 H Respiratory Rate 24 Blood Pressure Pulse Oximetry 95 Oxygen Delivery Method Room Air Room Air Oxygen Flow Rate 06/15/22 12:00 06/15/22 14:06 Temperature 98.0 F Pulse Rate 106 H 112 H Respiratory Rate 22 24 Blood Pressure 102/71 Pulse Oximetry 98 97 Oxygen Delivery Method Room Air Oxygen Flow Rate 0 Oxygen Delivery Method Room Air Oxygen Flow Rate 0 Narrative Exam Narrative: GEN: no acute distress, extremely thin male, cachectic HEENT: temporal wasting noted PULM: breath sounds present bilaterally, no wheezes or rales. Chest tube on right side. ABD: soft, nontender, nondistended, no organomegaly EXT: warm and well perfused with no edema NEURO: awake, alert, oriented, no focal deficits Objective Labs Result Diagrams: 06/15/22 05:30 06/15/22 05:30 Labs: Laboratory Results - last 24 hr 06/15/22 06/15/22 06/15/22 05:30 05:30 05:30 WBC 11.6 H RBC 3.41 L Hgb 9.9 L Hct 29.7 L MCV 87.2 MCH 28.9 MCHC 33.2 RDW 14.7 Plt Count 614 H Sodium 135 L Potassium 4.1 Chloride 97 L Carbon Dioxide 32 BUN 14 Creatinine 0.56 L Estimated GFR > 60 BUN/Creatinine Ratio 25.0 H Glucose 106 H Calcium 8.8 Vancomycin Peak Vancomycin Trough 19.4 06/15/22 08:45 WBC RBC Hgb Hct MCV MCH MCHC RDW Plt Count Sodium Potassium Chloride Carbon Dioxide BUN Creatinine Estimated GFR BUN/Creatinine Ratio Glucose Calcium Vancomycin Peak 30.4 Vancomycin Trough [facility] Medical History Asthma (02/02/11) Chronic abdominal pain Dorsalgia (02/02/11) Generalized anxiety disorder (02/02/11) Hypercalcemia Hyperlipidemia Obstructive sleep apnea syndrome (02/02/11) Pancreatitis (~2011) Scoliosis (~1982) Smoker Smoker unmotivated to quit (02/02/11) Smoking greater than 30 pack years Tinnitus (2005) Surgical History Anesthesia Status post cholecystectomy (2011) Family History Father No problems noted. Mother No problems noted. Brother No problems noted. Sister No problems noted. Family/Other No problems noted. Family/Other No problems noted. Social History household members: family and children Smoking Status: Current some day smoker alcohol intake: former Assessment & Plan Assessment & Plan narrative: #bilateral lung infiltrates -CT chest showed left upper lobe cavitary lesion vs spiculated nodule which Dr. Henriquez cardiothoracic surg did not think was cancer but more likely infectious -Dr. Henriquez recommending transfer for ID consultation -[facility] ID recommended starting cefepime, vanc and voriconazole as well as further workup -ordered fungitell, galactomannin, cocci IgG/IgM, cryptococcal Ag and quant gold -patient now in airborne isolation -transferring patient to higher level of care # spontaneous tension pneumothorax, present on admissionm -etiology possibly related to RUL mass and recent biopsy in Mar 2022 -chest tube in place to suction, repeat CXR with improvement in PTX and resolut ion of mediastinal shift -however persistent pneumothorax remains and air leak is noted -gen surg consulted to manage tube, recommending transfer for possible cardiothoracic surg management # acute hypoxic resp failure, present on admission. resolved. -secondary to PTX, was satting 87% on room air and needed up to 4L NC -now weaned to room air with chest tube placement # severely underweight with evidence of protein calorie malnutrition -patient is only 58kg with BMI 15, evidence of temporal wasting on exam, albumin on low end 3.5 -dietary consulted for recs on TPN vs tube feeds -discussed with patient about TPN or tube feeds and he declines now and wants to try with dietary supplements # tobacco dependence and COPD -nicotine patch ordered -albuterol PRN # anxiety -continue home klonopin Time Spent With Patient Critical Care time: I spent a total of [] minutes of critical care time on this patient's care toda y; this time is exclusive of procedural time.
[2022-06-15] MEDS: VANCOMYCIN 750 MG/150 ML PIGGYBACK 150 MG IV (15:17)
[2022-06-15] MEDS: ONDANSETRON 4 MG/2 ML INJ IV (18:43)
[2022-06-15] MEDS: SODIUM CHLORIDE 0.9% 1,000 ML 1000 ML IV (18:44)
[2022-06-15] MEDS: PANTOPRAZOLE DR 40 MG TABLET PO (21:24)
[2022-06-16] VITALS (13 sets, daily range): BP systolic 107–124; BP diastolic 67–76; PULSE 95–107; RESP 16–20; TEMP 36.6–37.4; O2SAT 91–100
[2022-06-16] MEDS: VANCOMYCIN 750 MG/150 ML PIGGYBACK 150 MG IV ×2 (03:07→15:04)
[2022-06-16 05:00] LABS: BUN Creatinine Ratio 27.4 (6-22); Blood Urea Nitrogen 17 mg/dL (9-20); Calcium 8.7 mg/dL (8.4-10.2); Carbon Dioxide 33 mmol/L (22-32); Chloride 99 mmol/L (98-107); Estimated Glomerular Filt Rate > 60 mL/min (>60); Glucose 86 mg/dL (70-100); HEMOLYSIS < 15 (0-50); Potassium 3.9 mmol/L (3.4-5.1); Sodium 136 mmol/L (137-145)
[2022-06-16 05:04] LABS: Hematocrit 28.7 % (41-53); Hemoglobin 9.6 g/dL (13.5-17.5); Mean Corpuscular HGB Conc 33.4 % (30-36); Mean Corpuscular Hemoglobin 29.4 PG (26-34); Platelet Count 592 X10^3/uL (150-400); Red Blood Cell Count 3.26 X10^6/uL (4.5-5.9); Red Cell Distribution Width 14.5 % (11.6-14.8); White Blood Cell Count 10.5 X10^3/uL (4.5-11.0)
[2022-06-16] MEDS: CEFEPIME 2 GM in SODIUM CHLORIDE 0.9% 100 ML IV ×2 (05:22→16:48)
[2022-06-16] MEDS: ALBUTEROL 2.5 MG/3 ML NEB (ADULT) INH ×3 (05:59→19:49)
--- NOTE | 2022-06-16 06:34 | PC.NURSE ---
Patient medicated for 6/10 pain with oxycodone per EMAR and patient notes relief. Patient states that Clonazepam helps control feelings of anxiety that he has been treated for on a jail basis. Chest Tube to right mid-upper chest in tact with vaseline gauze intact with small serosanguinous drainage. Tegoderm dressing changed as old dressing not occlusive. Chest tube to 20 cm H2O water seal with no air leaks noted and no crepitus noted. RUL posterior field decreased. No respiratory distress detected.
[2022-06-16] MEDS: OXYCODONE IR 5 MG TABLET PO ×3 (06:58→23:15)
[2022-06-16] MEDS: clonazePAM 0.5 MG TABLET 1 MG PO ×3 (06:58→22:57)
[2022-06-16] MEDS: SODIUM CHLORIDE 0.9% FLUSH 10 ML IV ×3 (06:59→20:23)
--- NOTE | 2022-06-16 07:12 | DI.RAD.S_ITS ---
PROCEDURE: XR CHEST 1V INDICATIONS: pneumothorax improvement? TECHNIQUE: One view of the chest was acquired. COMPARISON: [facility], CT, CT CHEST W CON, 06/13/2022, 13:31. [facility], CR, XR CHEST 1V, 06/15/2022, 7:16. FINDINGS: Surgical changes and devices: There is a thoracostomy tube on the right. Lungs and pleura: Moderate-sized right pneumothorax appears minimally changed. Persistent left upper lobe infiltrates and consolidations. No large pleural effusions. Mediastinum: Mediastinal contours appear normal. Heart size is normal. Bones and chest wall: No suspicious bony lesions. Overlying soft tissues appear unremarkable. IMPRESSION: 1. Stable moderate-sized right pneumothorax. 2. Persistent left upper lobe infiltrates and consolidations. Dictated by: Ramesh Taylor M.D. on 06/16/2022 at 7:52 Approved by: Ramesh Taylor M.D. on 06/16/2022 at 7:54
[2022-06-16] MEDS: NICOTINE 21 MG PATCH TOP (08:00)
[2022-06-16] MEDS: ENOXAPARIN 40 MG/0.4 ML SYRINGE SUBCUT (08:01)
[2022-06-16] MEDS: VORICONAZOLE 200 MG TABLET PO ×2 (08:01→20:23)
[2022-06-16 12:55] LABS: QuantiFERON Mitogen Value >10.00 IU/mL (.); QuantiFERON Nil Value 0.03 IU/mL (.); QuantiFERON TB Gold Plus Negative (Negative); QuantiFERON TB1 Ag Value 0.03 IU/mL (.); QuantiFERON TB2 Ag Value 0.04 IU/mL (.)
--- NOTE | 2022-06-16 13:35 | PM.PN.1 ---
Subjective Subjective Interval history: Patient states he feels relatively comfortable today he is having a little bit of coughing but not worse than previously. No questions or concerns Exam Vital Signs (past 8 hours): - 06/16/22 06:00 06/16/22 12:00 Temperature 98.1 F 97.9 F Pulse Rate 95 H 104 H Respiratory Rate 20 19 Blood Pressure 107/68 108/67 Pulse Oximetry 94 96 Oxygen Flow Rate 0 Oxygen Delivery Method Room Air Oxygen Flow Rate 0 Narrative Exam Narrative: Patient is alert and pleasant he is cachectic and very very thin and malnourished. His chest rise is equal bilaterally the chest tube is still in place. There is still an air leak present. It is on suction at 20 mmHg. Objective Labs Result Diagrams: 06/16/22 04:05 06/16/22 04:05 Labs: Laboratory Results - last 24 hr 06/14/22 06/14/22 06/16/22 04:08 04:08 04:05 WBC 10.5 RBC 3.26 L Hgb 9.6 L Hct 28.7 L MCV 88.0 MCH 29.4 MCHC 33.4 RDW 14.5 Plt Count 592 H Sodium Potassium Chloride Carbon Dioxide BUN Creatinine Estimated GFR BUN/Creatinine Ratio Glucose Calcium TB (QFT) Gold In Tube Negative TB Test (QFT) Mitogen >10.00 TB Test Antigen - Nil 0.03 TB Test Ag - Nil 1 0.03 TB Test Ag - Nil 2 0.04 TB Positive Criteria Comment Ref Test (Refrig) Comment 06/16/22 04:05 WBC RBC Hgb Hct MCV MCH MCHC RDW Plt Count Sodium 136 L Potassium 3.9 Chloride 99 Carbon Dioxide 33 H BUN 17 Creatinine 0.62 L Estimated GFR > 60 BUN/Creatinine Ratio 27.4 H Glucose 86 Calcium 8.7 TB (QFT) Gold In Tube TB Test (QFT) Mitogen TB Test Antigen - Nil TB Test Ag - Nil 1 TB Test Ag - Nil 2 TB Positive Criteria Ref Test (Refrig) [facility] Medical History Asthma (02/02/11) Chronic abdominal pain Dorsalgia (02/02/11) Generalized anxiety disorder (02/02/11) Hypercalcemia Hyperlipidemia Obstructive sleep apnea syndrome (02/02/11) Pancreatitis (~2011) Scoliosis (~1982) Smoker Smoker unmotivated to quit (02/02/11) Smoking greater than 30 pack years Tinnitus (2005) Surgical History Anesthesia Status post cholecystectomy (2011) Family History Father No problems noted. Mother No problems noted. Brother No problems noted. Sister No problems noted. Family/Other No problems noted. Family/Other No problems noted. Social History household members: family and children Smoking Status: Current some day smoker alcohol intake: former Assessment & Plan Assessment and plan (1) Pneumothorax on right: Status: Acute Plan Continue chest tube to suction today. There is a continued air leak. Perhaps tomorrow we can give a try of water seal. Still waiting on results from infectious workup to determine etiology of the nodule seen on his chest CT. Time Spent With Patient Critical Care time: I spent a total of [] minutes of critical care time on this patient's care today; this time is exclusive of procedural time.
[2022-06-16 14:51] LABS: Vancomycin Trough 10.8 ug/mL (10-20)
--- NOTE | 2022-06-16 15:07 | CM.DPC ---
DCP Cont: Per MD, pt continues with chest tube and may try water seal tomorrow if stable and still waiting for results on nodules and recommendation is still to attempt hospital transfer and mounter continues to work on this. Per RN, pt somewhat anxious and painful but tolerating tx and care well. [facility] continues to follow if pt progresses for safe d/c home and does not need hospital transfer. Pt could possibly benefit from HACH program for increased HH services at discharge. PT/OT still not ordered as pt not appropriate for therapies yet. Per [employer]crete Pour[employer] Supervisor, pt seems to be managing well with 6 Ensure Enlives a day for nutritional needs. Plan: SW to follow closely for ongoing attempts at hospital transfer vs remain here and improve and work with PT/OT when medically appropriate and to determine if home with [facility] possible HACH program and any further needs. Barbara Degroot MSW
--- NOTE | 2022-06-16 15:31 | PM.PN.1 ---
Subjective Subjective Date Patient Seen: 06/16/22 Time Patient Seen: 08:00 Interval history: He has no shortness of breath. He has no chest pain. He is coughing up phlegm but it is less than appear. Exam Vital Signs (past 8 hours): - 06/16/22 12:00 Temperature 97.9 F Pulse Rate 104 H Respiratory Rate 19 Blood Pressure 108/67 Pulse Oximetry 96 Oxygen Flow Rate 0 Oxygen Delivery Method Room Air Oxygen Flow Rate 0 Narrative Exam Narrative: GEN: no acute distress, extremely thin male, cachectic HEENT: temporal wasting noted PULM: breath sounds present bilaterally, no wheezes or rales. Chest tube on right side. ABD: soft, nontender, nondistended, no organomegaly EXT: warm and well perfused with no edema NEURO: awake, alert, oriented, no focal deficits Objective Labs Result Diagrams: 06/16/22 04:05 06/16/22 04:05 Labs: Laboratory Results - last 24 hr 06/14/22 06/14/22 06/16/22 04:08 04:08 04:05 WBC 10.5 RBC 3.26 L Hgb 9.6 L Hct 28.7 L MCV 88.0 MCH 29.4 MCHC 33.4 RDW 14.5 Plt Count 592 H Sodium Potassium Chloride Carbon Dioxide BUN Creatinine Estimated GFR BUN/Creatinine Ratio Glucose Calcium Vancomycin Trough TB (QFT) Gold In Tube Negative TB Test (QFT) Mitogen >10.00 TB Test Antigen - Nil 0.03 TB Test Ag - Nil 1 0.03 TB Test Ag - Nil 2 0.04 TB Positive Criteria Comment Ref Test (Refrig) Comment 06/16/22 06/16/22 04:05 14:25 WBC RBC Hgb Hct MCV MCH MCHC RDW Plt Count Sodium 136 L Potassium 3.9 Chloride 99 Carbon Dioxide 33 H BUN 17 Creatinine 0.62 L Estimated GFR > 60 BUN/Creatinine Ratio 27.4 H Glucose 86 Calcium 8.7 Vancomycin Trough 10.8 TB (QFT) Gold In Tube TB Test (QFT) Mitogen TB Test Antigen - Nil TB Test Ag - Nil 1 TB Test Ag - Nil 2 TB Positive Criteria Ref Test (Refrig) [facility] Medical History Asthma (02/02/11) Chronic abdominal pain Dorsalgia (02/02/11) Generalized anxiety disorder (02/02/11) Hypercalcemia Hyperlipidemia Obstructive sleep apnea syndrome (02/02/11) Pancreatitis (~2011) Scoliosis (~1982) Smoker Smoker unmotivated to quit (02/02/11) Smoking greater than 30 pack years Tinnitus (2005) Surgical History Anesthesia Status post cholecystectomy (2011) Family History Father No problems noted. Mother No problems noted. Brother No problems noted. Sister No problems noted. Family/Other No problems noted. Family/Other No problems noted. Social History household members: family and children Smoking Status: Current some day smoker alcohol intake: former Assessment & Plan Assessment & Plan narrative: #bilateral lung infiltrates -CT chest showed left upper lobe cavitary lesion vs spiculated nodule which Dr. Henriquez cardiothoracic surg did not think was cancer but more likely infectious -Dr. Henriquez recommending transfer for ID consultation -[place] ID recommended starting cefepime, vanc and voriconazole as well as further workup -ordered fungitell, galactomannin, cocci IgG/IgM, cryptococcal Ag and pending ---quant gold negative, aspergillus negative, afb smear negative x1, afb cultures pending -yeast growing on sputum culture, unclear if contaminant, further workup requested to micro lab -patient now in airborne isolation -transferring patient to higher level of care # spontaneous tension pneumothorax, present on admissionm -etiology possibly related to RUL mass and recent biopsy in Mar 2022 -chest tube in place to suction, repeat CXR with improvement in PTX and resolution of mediastinal shift -however persistent pneumothorax remains and air leak is noted -gen surg consulted to manage tube, recommending transfer for possible cardiothoracic surg management # acute hypoxic resp failure, present on admission. resolved. -secondary to PTX, was satting 87% on room air and needed up to 4L NC -now weaned to room air with chest tube placement # severely underweight with evidence of protein calorie malnutrition -patient is only 58kg with BMI 15, evidence of temporal wasting on exam, albumin on low end 3.5 -dietary consulted for recs on TPN vs tube feeds -discussed with patient about TPN or tube feeds and he declines now and wants to try with dietary supplements # tobacco dependence and COPD -nicotine patch ordered -albuterol PRN # anxiety -continue home jaylaonohayder Time Spent With Patient Critical Care time: I spent a total of [] minutes of critical care time on this patient's care today; this time is exclusive of procedural time.
--- NOTE | 2022-06-16 17:15 | PC.NURSE ---
Pt AAOx4, ADORNO, OOB walking in room w/ standby assist today. PRN Clonazepam x1 for anxiety, emotional support also provided. PRN Oxy for pain at chest tube insertion site with adequate relief. VSS. Afebrile. Room air. Jimenez/thick sputum. R chest tube to low int. wall suction, adjusted to -15cm per Dr. Mueller, air leak remains present, MD aware. Dysphagia diet, pt w/ poor appetite and only consuming Ensures. BM x1. AUOP w/ urinal.
[2022-06-16] MEDS: PANTOPRAZOLE DR 40 MG TABLET PO (20:23)
[2022-06-17] VITALS (17 sets, daily range): BP systolic 115–134; BP diastolic 67–79; PULSE 96–107; RESP 16–19; TEMP 36.7–37.6; O2SAT 95–100
[2022-06-17] MEDS: VANCOMYCIN 750 MG/150 ML PIGGYBACK 150 MG IV ×2 (02:53→14:57)
[2022-06-17] MEDS: CEFEPIME 2 GM in SODIUM CHLORIDE 0.9% 100 ML IV ×2 (04:41→17:44)
[2022-06-17] MEDS: OXYCODONE IR 5 MG TABLET PO ×3 (06:54→23:16)
[2022-06-17] MEDS: clonazePAM 0.5 MG TABLET 1 MG PO ×3 (06:55→23:15)
--- NOTE | 2022-06-17 08:19 | CM.DPC ---
DCP Note Continued REMEDY DEVELOPER receives call from [facility], it is reported that they do not accept [employer] insurance and cannot serve patient. REMEDY DEVELOPER calls [facility] regarding referral and faxes referral for review. REMEDY DEVELOPER to review this with patient. Plan:Patient to d/c upon medical clearance with [facility], DCP to f/u with further needs LENORA [place]
[2022-06-17] MEDS: NICOTINE 21 MG PATCH TOP (09:00)
[2022-06-17] MEDS: ENOXAPARIN 40 MG/0.4 ML SYRINGE SUBCUT (09:00)
[2022-06-17] MEDS: SODIUM CHLORIDE 0.9% FLUSH 10 ML IV ×2 (09:01→23:15)
[2022-06-17] MEDS: VORICONAZOLE 200 MG TABLET PO ×2 (09:01→20:24)
[2022-06-17] MEDS: ALBUTEROL 2.5 MG/3 ML NEB (ADULT) INH ×3 (09:07→20:04)
--- NOTE | 2022-06-17 11:44 | DIET.CONS2 ---
Dietary Inpatient Consultation Note Admission Date: 06/12/2022 14:30 RD f/u for 56y M with severe malnutrition. Pt denying all solid food on meal trays. Desires to only consume ONS Ensure Enlive, of which, 6 per day meet pts kcal and protein needs. Pt prefers chocolate flavor. Kitchen to continue sending ONS at meal times. Diet: 06/13/22 Breakfast Dysphagia Diet Diet Modifications: chop food, enlive tid Liquid consistency: Normal/Thin Food texture: Dysphagia Mechanical Soft Nutrition Percent Meal Consumed ensure 06/16/22 18:00 Percent Meal Consumed pt only consuming Ensure 06/16/22 18:00 supplements Percent Meal Consumed pt just want ensure 06/16/22 13:19 Percent Meal Consumed 0 06/16/22 09:00 Percent Meal Consumed 0% 06/15/22 18:55 Percent Meal Consumed 0% 06/15/22 12:46 Electronically Signed by: Saira Casanova 06/17/22 11:44 Clinical Dietitian [address] [id number]
--- NOTE | 2022-06-17 12:36 | DI.RAD.S_ITS ---
PROCEDURE: XR CHEST 1V INDICATIONS: pneumothorax TECHNIQUE: One view of the chest was acquired. COMPARISON: [facility], , XR CHEST 1V, 06/16/2022, 7:20. FINDINGS: Right pneumothorax and right pigtail thoracostomy tube are both unchanged. Airspace disease in the left upper lobe is improved. Left pleural space appears clear. Normal heart size. IMPRESSION: Unchanged right apical pneumothorax. Dictated by: Bert Tom M.D. on 06/17/2022 at 13:15 Approved by: Bert Tom M.D. on 06/17/2022 at 13:16
--- NOTE | 2022-06-17 14:32 | P.PN_ITS ---
Subjective Subjective Date Patient Seen: 06/17/22 Interval history: He has no shortness of breath. He has no chest pain except around his chest tube when he moves. Chest to remains to suction. Exam Vital Signs (past 8 hours): - 06/17/22 07:00 06/17/22 09:07 06/17/22 12:00 Temperature 98.5 F Pulse Rate 98 H 106 H Respiratory Rate 18 17 Blood Pressure 134/79 Pulse Oximetry 96 98 Oxygen Delivery Method Room Air Room Air Oxygen Flow Rate 0 Oxygen Delivery Method Room Air Oxygen Flow Rate 0 Narrative Exam Narrative: GEN: no acute distress, extremely thin male, cachectic HEENT: temporal wasting noted PULM: breath sounds present bilaterally, no wheezes or rales. Chest tube on right side. ABD: soft, nontender, nondistended, no organomegaly EXT: warm and well perfused with no edema NEURO: awake, alert, oriented, no focal deficits Objective Labs Result Diagrams: 06/16/22 04:05 06/16/22 04:05 Labs: Laboratory Results - last 24 hr 06/14/22 06/16/22 06/16/22 04:08 14:25 17:00 Vancomycin Peak 25.0 Vancomycin Trough 10.8 Ref Test (Refrig) Comment [facility] Medical History Asthma (02/02/11) Chronic abdominal pain Dorsalgia (02/02/11) Generalized anxiety disorder (02/02/11) Hypercalcemia Hyperlipidemia Obstructive sleep apnea syndrome (02/02/11) Pancreatitis (~2011) Scoliosis (~1982) Smoker Smoker unmotivated to quit (02/02/11) Smoking greater than 30 pack years Tinnitus (2005) Surgical History Anesthesia Status post cholecystectomy (2011) Family History Father No problems noted. Mother No problems noted. Brother No problems noted. Sister No problems noted. Family/Other No problems noted. Family/Other No problems noted. Social History household members: family and children Smoking Status: Current some day smoker alcohol intake: former Assessment & Plan Assessment & Plan narrative: #bilateral lung infiltrates -CT chest showed left upper lobe cavitary lesion vs spiculated nodule which Dr. Henriquez cardiothoracic surg did not think was cancer but more likely infectious -Dr. Henriquez recommending transfer for ID consultation -[facility] recommended starting cefepime, vanc and voriconazole as well as further workup -ordered fungitell, galactomannin, cocci IgG/IgM, cryptococcal Ag and pending ---quant gold negative, aspergillus negative, afb smear negative x1, afb cultures pending -yeast growing on sputum culture, unclear if contaminant, further workup requested to micro lab -patient now in airborne isolation -transferring patient to higher level of care, though no current beds available. # spontaneous tension pneumothorax, present on admissionm -etiology possibly related to RUL mass and recent biopsy in Mar 2022 -chest tube in place to suction, repeat CXR with improvement in PTX and resolution of mediastinal shift -however persistent pneumothorax remains and air leak is noted -gen surg consulted to manage tube, recommending transfer for possible cardiothoracic surg management # acute hypoxic resp failure, present on admission. resolved. -secondary to PTX, was satting 87% on room air and needed up to 4L NC -now weaned to room air with chest tube placement # severely underweight with evidence of protein calorie malnutrition -patient is only 58kg with BMI 15, evidence of temporal wasting on exam, albumin on low end 3.5 -dietary consulted for recs on TPN vs tube feeds -discussed with patient about TPN or tube feeds and he declines now and wants to try with dietary supplements # tobacco dependence and COPD -nicotine patch ordered -albuterol PRN # anxiety -continue home klonopin Time Spent With Patient Critical Care time: I spent a total of [] minutes of critical care time on this patient's care today; this time is exclusive of procedural time.
[2022-06-17] MEDS: PANTOPRAZOLE DR 40 MG TABLET PO (20:24)
[2022-06-18] VITALS (21 sets, daily range): BP systolic 117–127; BP diastolic 66–79; PULSE 91–110; RESP 16–19; TEMP 36.7–37.1; O2SAT 95–98
[2022-06-18 03:14] LABS: Vancomycin Trough 8.9 ug/mL (10-20)
[2022-06-18] MEDS: VANCOMYCIN 750 MG/150 ML PIGGYBACK 150 MG IV (03:28)
[2022-06-18] MEDS: CEFEPIME 2 GM in SODIUM CHLORIDE 0.9% 100 ML IV ×2 (05:28→16:55)
--- NOTE | 2022-06-18 06:16 | PC.NURSE ---
Veneer Splicer Note-Patient remains in Airborne Isolation for TB r/o. Has hacking cough with scant thick reece sputum. CT remains patent, intact to 15cm sx, does have small air leak, MDs aware. SpO2 99% on RA, has coarse rub RLL. Oxycodone effective for pain, takes clonazepam TID for anxiety. VSS.
[2022-06-18 06:21] LABS: Vancomycin Peak 25.1 ug/mL (20-40)
[2022-06-18] MEDS: OXYCODONE IR 5 MG TABLET PO ×3 (07:44→22:56)
[2022-06-18] MEDS: clonazePAM 0.5 MG TABLET 1 MG PO ×3 (07:45→22:57)
[2022-06-18] MEDS: VANCOMYCIN PEAK 1 REQUEST MISC (08:01)
[2022-06-18] MEDS: ENOXAPARIN 40 MG/0.4 ML SYRINGE SUBCUT (08:09)
[2022-06-18] MEDS: NICOTINE 21 MG PATCH TOP (08:10)
--- NOTE | 2022-06-18 08:43 | DI.RAD.S_ITS ---
PROCEDURE: XR CHEST 1V INDICATIONS: chest tube to water seal, pneumothorax TECHNIQUE: One view of the chest was acquired. COMPARISON: [facility], , XR CHEST 1V, 06/17/2022, 12:42. FINDINGS: Surgical changes and devices: Right-sided small caliber chest tube is again seen. Lungs and pleura: There is interval slight increase in size of right-sided pneumothorax particularly in right upper lung field and lateral aspect of right lower lung field. Persistent opacification in left upper to midlung field is again seen and unchanged. No pleural effusions . Mediastinum: Mediastinal contours appear normal. Heart size is normal. Bones and chest wall: No suspicious bony lesions. Overlying soft tissues appear unremarkable. IMPRESSION: Interval slight increase in size of patient's known right-sided pneumothorax particularly in lateral aspect of right mid to lower lung field. Persistent opacification in left upper lung field. No left-sided pneumothorax. Dictated by: Romaine Pond M.D. on 06/18/2022 at 10:18 Approved by: Romaine Pond M.D. on 06/18/2022 at 10:19
[2022-06-18] MEDS: VORICONAZOLE 200 MG TABLET PO ×2 (09:55→21:13)
[2022-06-18] MEDS: SODIUM CHLORIDE 0.9% FLUSH 10 ML IV ×2 (09:56→21:13)
[2022-06-18] MEDS: ALBUTEROL 2.5 MG/3 ML NEB (ADULT) INH ×2 (10:37→19:14)
--- NOTE | 2022-06-18 10:46 | CM.DPC ---
DCP Note continued. Patient is still in need of chest tube and remains on transfer list for [facility], [facility] and [facility] waitlist. Plan: Transfer to higher level of care hospital vs. home upon medical clearance with [facility]. Marissa Metzger, SUPERVISOR HARVESTING
--- NOTE | 2022-06-18 12:16 | P.PN_ITS ---
Subjective Subjective Interval history: Doing fine today. No questions. Exam Vital Signs (past 8 hours): - 06/18/22 06:00 06/18/22 07:56 06/18/22 05:58 Temperature 98.0 F 98.1 F Pulse Rate 97 H 97 H Respiratory Rate 17 Blood Pressure 117/70 Pulse Oximetry 97 97 Oxygen Delivery Method 06/18/22 05:59 06/18/22 05:59 06/18/22 06:00 Temperature Pulse Rate 98 H 99 H Respiratory Rate Blood Pressure 117/70 Pulse Oximetry 96 97 Oxygen Delivery Method 06/18/22 07:46 06/18/22 07:46 06/18/22 07:00 Temperature Pulse Rate 99 H Respiratory Rate Blood Pressure 117/66 Pulse Oximetry 95 Oxygen Delivery Method Room Air 06/18/22 10:37 Temperature Pulse Rate 108 H Respiratory Rate 16 Blood Pressure Pulse Oximetry 97 Oxygen Delivery Method Room Air Oxygen Delivery Method Room Air Oxygen Flow Rate 0 Narrative Exam Narrative: Patient is alert and oriented appropriate and pleasant supine in bed. He is cachectic with temporal wasting His chest wall is very thin he is frail chest rise is equal bilaterally and he is not short of breath he is able to speak in full sentences. The chest tube entry point is clean dry and intact with petroleum dressing covered with Tegaderm The chest tube is on suction, when checked for an air leak there was an air leak present. Objective Labs Result Diagrams: 06/16/22 04:05 06/16/22 04:05 Labs: Laboratory Results - last 24 hr 06/18/22 06/18/22 02:36 05:40 Vancomycin Peak 25.1 Vancomycin Trough 8.9 L [facility] Medical History Asthma (02/02/11) Chronic abdominal pain Dorsalgia (02/02/11) Generalized anxiety disorder (02/02/11) Hypercalcemia Hyperlipidemia Obstructive sleep apnea syndrome (02/02/11) Pancreatitis (~2011) Scoliosis (~1982) Smoker Smoker unmotivated to quit (02/02/11) Smoking greater than 30 pack years Tinnitus (2005) Surgical History Anesthesia Status post cholecystectomy (2011) Family History Father No problems noted. Mother No problems noted. Brother No problems noted. Sister No problems noted. Family/Other No problems noted. Family/Other No problems noted. Social History household members: family and children Smoking Status: Current some day smoker alcohol intake: former Assessment & Plan Assessment & Plan narrative: This morning at about 7:30 a.m. I placed the chest tube to water seal, as a trial knowing the a.m. chest x-ray had not been taken; even though there is a persistent air leak. After about 2 hours the x-ray was done and it showed reaccumulation of some air in the liver lung and I contacted the nurse to replace the chest tube to suction. We will continue to follow please do not hesitate to contact me directly on my cell phone at [phone] if there are any questions or concerns. Time Spent With Patient Critical Care time: I spent a total of [] minutes of critical care time on this patient's care today; this time is exclusive of procedural time.
[2022-06-18] MEDS: VANCOMYCIN 1,000 MG/200 ML PIGGYBACK 150 MG IV (13:21)
--- NOTE | 2022-06-18 18:07 | PM.PN.1 ---
Subjective Subjective Date Patient Seen: 06/18/22 Interval history: He has no shortness of breath. He has no chest pain except around his chest tube when he moves. Chest was to water seal but repeat CXR showed expansion and suction was restarted. Exam Vital Signs (past 8 hours): - 06/18/22 10:37 06/18/22 10:30 06/18/22 11:00 Temperature Pulse Rate 108 H 103 H 107 H Respiratory Rate 16 Blood Pressure Pulse Oximetry 97 95 96 Oxygen Delivery Method Room Air Oxygen Flow Rate 06/18/22 11:30 06/18/22 12:00 06/18/22 12:26 Temperature Pulse Rate 108 H 107 H 106 H Respiratory Rate Blood Pressure Pulse Oximetry 95 97 97 Oxygen Delivery Method Oxygen Flow Rate 06/18/22 12:26 06/18/22 12:30 06/18/22 12:00 Temperature 98.8 F Pulse Rate 107 H 105 H Respiratory Rate 19 Blood Pressure 117/73 117/73 Pulse Oximetry 97 97 Oxygen Delivery Method Oxygen Flow Rate 0 Oxygen Delivery Method Room Air Oxygen Flow Rate 0 Narrative Exam Narrative: GEN: no acute distress, extremely thin male, cachectic HEENT: temporal wasting noted PULM: breath sounds present bilaterally, no wheezes or rales. Chest tube on right side. ABD: soft, nontender, nondistended, no organomegaly EXT: warm and well perfused with no edema NEURO: awake, alert, oriented, no focal deficits Objective Labs Result Diagrams: 06/16/22 04:05 06/16/22 04:05 Labs: Laboratory Results - last 24 hr 06/18/22 06/18/22 02:36 05:40 Vancomycin Peak 25.1 Vancomycin Trough 8.9 L [facility] Medical History Asthma (02/02/11) Chronic abdominal pain Dorsalgia (02/02/11) Generalized anxiety disorder (02/02/11) Hypercalcemia Hyperlipidemia Obstructive sleep apnea syndrome (02/02/11) Pancreatitis (~2011) Scoliosis (~1982) Smoker Smoker unmotivated to quit (02/02/11) Smoking greater than 30 pack years Tinnitus (2005) Surgical History Anesthesia Status post cholecystectomy (2011) Family History Father No problems noted. Mother No problems noted. Brother No problems noted. Sister No problems noted. Family/Other No problems noted. Family/Other No problems noted. Social History household members: family and children Smoking Status: Current some day smoker alcohol intake: former Assessment & Plan Assessment & Plan narrative: #bilateral lung infiltrates -CT chest showed left upper lobe cavitary lesion vs spiculated nodule which Dr. Henriquez cardiothoracic surg did not think was cancer but more likely infectious -Dr. Henriquez recommending transfer for ID consultation -[facility] ID recommended starting cefepime, vanc and voriconazole as well as further workup -ordered fungitell, galactomannin, cocci IgG/IgM, cryptococcal Ag and pending ---quant gold negative, aspergillus negative, afb smear negative x2 of 3, afb cultures pending but will take 2 months. -yeast growing on sputum culture, unclear if contaminant, further workup requested to micro lab -patient now in airborne isolation -transfer pending to higher level of care, though no current beds available. # spontaneous tension pneumothorax, present on admissionm -etiology possibly related to RUL mass and recent biopsy in Mar 2022 -chest tube in place to suction, repeat CXR with improvement in PTX and resolution of mediastinal shift. -however persistent pneumothorax remains and air leak is noted -gen surg consulted to manage tube, recommending transfer for possible cardiothoracic surg management -failed chest tube to water seal on 06/18 with re-expansion. -appreciate general surgery consultation. # acute hypoxic resp failure, present on admission. resolved. -secondary to PTX, was satting 87% on room air and needed up to 4L NC -now weaned to room air with chest tube placement # Severe Acute on Chronic Protein Calorie Malnutrition r/t inadequate PO intake aeb BMI 15.3 (severe), MNA score 4 (malnourished) on admission, pt would benefit from artificial enteral nutrition but pt requests PO intervention, pt with poor fitting dentures limiting PO intake and uncharacterized lung infection with SOB limiting appetite and ability to eat. -The patient is at much higher risk for medical and surgical complications because of his malnutrition.? This increases the difficulty and complexity of medical and surgical interventions and increases the chances of poor outcomes such as morbidity and mortality. -providing three ONS Ensure Enlives daily providing 100% kcals and 120% protein needs. -providing Dysphagia Mechanical Soft High Protein/High kcal diet at half portions. -underwriter solicitation director providing ONS reccs with coupons to continue tid ONS Ensure Plus until pt BMI >18. # tobacco dependence and COPD -nicotine patch ordered -albuterol PRN # anxiety -continue home klonopin Dispo: pending transfer for cardiothoracic surgery. No beds currently. Many places reluctant to take patient while on TB rule out. 3rd afb smear pending, can likely remove precautions / airborne isolation with negative result. Time Spent With Patient Critical Care time: I spent a total of [] minutes of critical care time on this patient's care today; this time is exclusive of procedural time.
[2022-06-18] MEDS: PANTOPRAZOLE DR 40 MG TABLET PO (21:13)
[2022-06-19] VITALS: BP 126/79; PULSE 97; RESP 18; TEMP 36.7; O2SAT 96
[2022-06-19] MEDS: VANCOMYCIN 1,000 MG/200 ML PIGGYBACK 150 MG IV ×2 (00:07→11:34)
[2022-06-19] MEDS: CEFEPIME 2 GM in SODIUM CHLORIDE 0.9% 100 ML IV ×2 (05:25→16:32)
[2022-06-19 05:48] VITALS: PULSE 97; RESP 16; O2SAT 96
[2022-06-19] MEDS: ALBUTEROL 2.5 MG/3 ML NEB (ADULT) INH ×4 (05:48→22:44)
[2022-06-19 06:00] VITALS: BP 120/73; PULSE 93; RESP 19; TEMP 36.8; O2SAT 99
[2022-06-19 06:44] LABS: Add Manual Diff / Slide Review NO; Basophils Absolute Auto 100 /uL (0-100); Basophils Percent Auto 0.9 % (0-2); Eosinophils Absolute Auto 800 /uL (0-450); Hematocrit 29.7 % (41-53); Hemoglobin 10.1 g/dL (13.5-17.5); Lymphocytes Absolute Auto 1900 /uL (1100-4500); Lymphocytes Percent Auto 21.9 % (25-40); Mean Corpuscular HGB Conc 33.9 % (30-36); Mean Corpuscular Hemoglobin 29.5 PG (26-34); Mean Corpuscular Volume 87.1 fL (80-100); Monocytes Absolute Auto 900 /uL (0-900); Monocytes Percent Auto 10.1 % (3-14); Neutrophils Absolute Auto 5000 /uL (1500-7000); Neutrophils Percent Auto 58.1 % (50-75); Platelet Count 541 X10^3/uL (150-400); Red Blood Cell Count 3.41 X10^6/uL (4.5-5.9); Red Cell Distribution Width 14.9 % (11.6-14.8); White Blood Cell Count 8.6 X10^3/uL (4.5-11.0)
[2022-06-19 06:50] LABS: Alanine Aminotransferase 30 IU/L (<50); Albumin 3.3 g/dL (3.5-5.0); Albumin Globulin Ratio 0.8 (1.0-2.8); Alkaline Phosphatase 108 U/L (38-126); Aspartate Aminotransferase 48 IU/L (17-59); BUN Creatinine Ratio 29.3 (6-22); Bilirubin Total 0.3 mg/dL (0.2-1.3); Blood Urea Nitrogen 17 mg/dL (9-20); Calcium 8.7 mg/dL (8.4-10.2); Carbon Dioxide 33 mmol/L (22-32); Chloride 98 mmol/L (98-107); Estimated Glomerular Filt Rate > 60 mL/min (>60); Globulin 4.2 g/dL (1.7-4.1); Glucose 83 mg/dL (70-100); HEMOLYSIS < 15 (0-50); Magnesium 2.3 mg/dL (1.6-2.3); Potassium 4.2 mmol/L (3.4-5.1); Sodium 137 mmol/L (137-145); Total Protein 7.5 g/dL (6.3-8.2)
[2022-06-19] MEDS: OXYCODONE IR 5 MG TABLET PO ×3 (07:14→22:55)
[2022-06-19] MEDS: clonazePAM 0.5 MG TABLET 1 MG PO ×3 (07:14→22:55)
[2022-06-19 08:20] VITALS: PULSE 114; RESP 18; O2SAT 95
[2022-06-19] MEDS: VORICONAZOLE 200 MG TABLET PO ×2 (08:28→21:31)
[2022-06-19] MEDS: NICOTINE 21 MG PATCH TOP (08:28)
[2022-06-19] MEDS: ENOXAPARIN 40 MG/0.4 ML SYRINGE SUBCUT (08:28)
[2022-06-19] MEDS: SODIUM CHLORIDE 0.9% FLUSH 10 ML IV ×2 (08:29→22:59)
--- NOTE | 2022-06-19 12:37 | P.PN_ITS ---
Subjective Subjective Date Patient Seen: 06/19/22 Interval history: He has no shortness of breath. He has no chest pain except around his chest tube when he moves. AFB smears now negative x3, airborne cautions now removed. Exam Vital Signs (past 8 hours): - 06/19/22 05:48 06/19/22 06:00 06/19/22 07:00 Temperature 98.3 F Pulse Rate 97 H 93 H Respiratory Rate 16 19 Blood Pressure 120/73 Pulse Oximetry 96 99 Oxygen Delivery Method Room Air Room Air Oxygen Flow Rate 0 Fraction of Inspired Oxygen 21 06/19/22 08:20 Temperature Pulse Rate 114 H Respiratory Rate 18 Blood Pressure Pulse Oximetry 95 Oxygen Delivery Method Room Air Oxygen Flow Rate Fraction of Inspired Oxygen Fraction of Inspired Oxygen 21 SaO2/FiO2 Ratio 457 Oxygen Delivery Method Room Air Oxygen Flow Rate 0 Narrative Exam Narrative: GEN: no acute distress, extremely thin male, cachectic HEENT: temporal wasting noted PULM: breath sounds present bilaterally, no wheezes or rales. Chest tube on right side. ABD: soft, nontender, nondistended, no organomegaly EXT: warm and well perfused with no edema NEURO: awake, alert, oriented, no focal deficits Objective Labs Result Diagrams: 06/19/22 06:10 06/19/22 06:10 Labs: Laboratory Results - last 24 hr 06/19/22 06/19/22 06:10 06:10 WBC 8.6 RBC 3.41 L Hgb 10.1 L Hct 29.7 L MCV 87.1 MCH 29.5 MCHC 33.9 RDW 14.9 H Plt Count 541 H Neut % (Auto) 58.1 Lymph % (Auto) 21.9 L [place] % (Auto) 10.1 Eos % (Auto) 9.0 H Baso % (Auto) 0.9 Neut # (Auto) 5000 Lymph # (Auto) 1900 [place] # (Auto) 900 Eos # (Auto) 800 H Baso # (Auto) 100 Sodium 137 Potassium 4.2 Chloride 98 Carbon Dioxide 33 H BUN 17 Creatinine 0.58 L Estimated GFR > 60 BUN/Creatinine Ratio 29.3 H Glucose 83 Calcium 8.7 Magnesium 2.3 Total Bilirubin 0.3 AST 48 ALT 30 Alkaline Phosphatase 108 Total Protein 7.5 Albumin 3.3 L Globulin 4.2 H Albumin/Globulin Ratio 0.8 L [facility] Medical History Asthma (02/02/11) Chronic abdominal pain Dorsalgia (02/02/11) Generalized anxiety disorder (02/02/11) Hypercalcemia Hyperlipidemia Obstructive sleep apnea syndrome (02/02/11) Pancreatitis (~2011) Scoliosis (~1982) Smoker Smoker unmotivated to quit (02/02/11) Smoking greater than 30 pack years Tinnitus (2005) Surgical History Anesthesia Status post cholecystectomy (2011) Family History Father No problems noted. Mother No problems noted. Brother No problems noted. Sister No problems noted. Family/Other No problems noted. Family/Other No problems noted. Social History household members: family and children Smoking Status: Current some day smoker alcohol intake: former Assessment & Plan Assessment & Plan narrative: #bilateral lung infiltrates -CT chest showed left upper lobe cavitary lesion vs spiculated nodule which Dr. Henriquez cardiothoracic surg did not think was cancer but more likely infectious -Dr. Henriquez recommending transfer for ID consultation -[facility] ID recommended starting cefepime, vanc and voriconazole as well as further workup -ordered fungitell, galactomannin, cocci IgG/IgM, cryptococcal Ag and pending ---quant gold negative, aspergillus negative, afb smear negative x3 now, afb cultures pending but will take 2 months. -yeast growing on sputum culture, unclear if contaminant, further workup requested to micro lab and is still pending -no longer requires airborne isolation with negative smears x3. -transfer pending to higher level of care, though no current beds available. # spontaneous tension pneumothorax, present on admissionm -etiology possibly related to RUL mass and recent biopsy in Mar 2022 -chest tube in place to suction, repeat CXR with improvement in PTX and resolution of mediastinal shift. -however persistent pneumothorax remains and air leak is noted -gen surg consulted to manage tube, recommending transfer for possible cardiothoracic surg management -failed chest tube to water seal on 06/18 with re-expansion. -appreciate general surgery consultation. # acute hypoxic resp failure, present on admission. resolved. -secondary to PTX, was satting 87% on room air and needed up to 4L NC -now weaned to room air with chest tube placement # Severe Acute on Chronic Protein Calorie Malnutrition r/t inadequate PO intake aeb BMI 15.3 (severe), MNA score 4 (malnourished) on admission, pt would benefit from artificial enteral nutrition but pt requests PO intervention, pt with poor fitting dentures limiting PO intake and uncharacterized lung infection with SOB limiting appetite and ability to eat. -The patient is at much higher risk for medical and surgical complications because of his malnutrition.? This increases the difficulty and complexity of medical and surgical interventions and increases the chances of poor outcomes such as morbidity and mortality. -providing three ONS Ensure Enlives daily providing 100% kcals and 120% protein needs. -providing Dysphagia Mechanical Soft High Protein/High kcal diet at half portions. -orientation and mobility instructor providing ONS reccs with coupons to continue tid ONS Ensure Plus until pt BMI >18. # tobacco dependence and COPD -nicotine patch ordered -albuterol PRN # anxiety -continue home klonopin Dispo: pending transfer for cardiothoracic surgery. No beds currently. Many places reluctant to take patient while on TB rule out but now off of airborne is olation so that may increase bed availability. Time Spent With Patient Critical Care time: I spent a total of [] minutes of critical care time on this patient's care today; this time is exclusive of procedural time.
[2022-06-19] MEDS: SENNOSIDES 8.6 MG TABLET PO (12:44)
[2022-06-19 15:45] VITALS: BP 122/74; PULSE 90; RESP 16; TEMP 36.6; O2SAT 96
[2022-06-19] MEDS: PANTOPRAZOLE DR 40 MG TABLET PO (21:31)
[2022-06-19 22:44] VITALS: PULSE 105; RESP 18; O2SAT 97
[2022-06-20] VITALS: BP 114/70; PULSE 106; RESP 18; TEMP 36.9; O2SAT 95
--- NOTE | 2022-06-20 05:13 | PC.NURSE ---
Patient medicated with pain medication and antianxiety medication at needed. No change in status at present time. Explained to patient when his next dose of pain medication was available to him.
[2022-06-20] MEDS: OXYCODONE IR 5 MG TABLET PO ×3 (05:55→22:58)
[2022-06-20] MEDS: clonazePAM 0.5 MG TABLET 1 MG PO ×3 (05:55→22:58)
[2022-06-20 06:00] VITALS: BP 121/77; PULSE 94; RESP 18; TEMP 36.4; O2SAT 98
[2022-06-20] MEDS: VORICONAZOLE 200 MG TABLET PO ×2 (09:00→20:59)
[2022-06-20] MEDS: NICOTINE 21 MG PATCH TOP (09:00)
[2022-06-20] MEDS: SODIUM CHLORIDE 0.9% FLUSH 10 ML IV ×2 (09:00→21:02)
--- NOTE | 2022-06-20 10:41 | P.PN_ITS ---
Subjective Subjective Date Patient Seen: 06/20/22 Interval history: Patient awaiting transfer. Exam Vital Signs (past 8 hours): - 06/20/22 06:00 06/20/22 07:00 Temperature 97.6 F Pulse Rate 94 H Respiratory Rate 18 Blood Pressure 121/77 Pulse Oximetry 98 Oxygen Delivery Method Room Air Fraction of Inspired Oxygen 21 SaO2/FiO2 Ratio 461 Oxygen Delivery Method Room Air Oxygen Flow Rate 0 Narrative Exam Narrative: GEN: no acute distress, extremely thin male, cachectic HEENT: temporal wasting noted PULM: breath sounds present bilaterally, no wheezes or rales. Chest tube on right side. ABD: soft, nontender, nondistended, no organomegaly EXT: warm and well perfused with no edema NEURO: awake, alert, oriented, no focal deficits Objective Labs Result Diagrams: 06/20/22 12:15 06/20/22 12:15 Labs: Laboratory Results - last 24 hr 06/14/22 04:08 Coccidioides Ab CF Ttr Negative PFSH Medical History Asthma (02/02/11) Chronic abdominal pain Dorsalgia (02/02/11) Generalized anxiety disorder (02/02/11) Hypercalcemia Hyperlipidemia Obstructive sleep apnea syndrome (02/02/11) Pancreatitis (~2011) Scoliosis (~1982) Smoker Smoker unmotivated to quit (02/02/11) Smoking greater than 30 pack years Tinnitus (2005) Surgical History Anesthesia Status post cholecystectomy (2011) Family History Father No problems noted. Mother No problems noted. Brother No problems noted. Sister No problems noted. Family/Other No problems noted. Family/Other No problems noted. Social History household members: family and children Smoking Status: Current some day smoker alcohol intake: former Assessment & Plan Assessment & Plan narrative: #bilateral lung infiltrates -CT chest showed left upper lobe cavitary lesion vs spiculated nodule which Dr. Henriquez cardiothoracic surg did not think was cancer but more likely infectious -Dr. Henriquez recommending transfer for ID consultation -[place] ID recommended starting cefepime, vanc and voriconazole as well as further workup -ordered fungitell, galactomannin, cocci IgG/IgM, cryptococcal Ag and pending -quant gold negative, aspergillus negative, afb smear negative x3 now, afb cultures pending but will take 2 months. -yeast growing on sputum culture, unclear if contaminant, further workup re quested to micro lab and is still pending -no longer requires airborne isolation with negative smears x3. -transfer pending to higher level of care, though no current beds available. # spontaneous tension pneumothorax, present on admissionm -etiology possibly related to RUL mass and recent biopsy in Mar 2022 -chest tube in place to suction, repeat CXR with improvement in PTX and resolution of mediastinal shift. -however persistent pneumothorax remains and air leak is noted -gen surg consulted to manage tube, recommending transfer for possible cardiothoracic surg management -failed chest tube to water seal on 06/18 with re-expansion. -appreciate general surgery consultation. # acute hypoxic resp failure, present on admission. resolved. -secondary to PTX, was satting 87% on room air and needed up to 4L NC -now weaned to room air with chest tube placement # Severe Acute on Chronic Protein Calorie Malnutrition r/t inadequate PO intake aeb BMI 15.3 (severe), MNA score 4 (malnourished) on admission, pt would benefit from artificial enteral nutrition but pt requests PO intervention, pt with poor fitting dentures limiting PO intake and uncharacterized lung infection with SOB limiting appetite and ability to eat. -The patient is at much higher risk for medical and surgical complications because of his malnutrition.? This increases the difficulty and complexity of medical and surgical interventions and increases the chances of poor outcomes such as morbidity and mortality. -providing three ONS Ensure Enlives daily providing 100% kcals and 120% protein needs. -providing Dysphagia Mechanical Soft High Protein/High kcal diet at half portions. -machine maintenance mechanic providing ONS reccs with coupons to continue tid ONS Ensure Plus until pt BMI >18. # tobacco dependence and COPD -nicotine patch ordered -albuterol PRN # anxiety -continue home klonopin Dispo: pending transfer for cardiothoracic surgery. No beds currently. Many places reluctant to take patient while on TB rule out but now off of airborne isolation so that may increase bed availability. Time Spent With Patient Critical Care time: I spent a total of [] minutes of critical care time on this patient's care today; this time is exclusive of procedural time.
--- NOTE | 2022-06-20 11:06 | PC.NURSE ---
Patient refusing some care and medications.
[2022-06-20 12:39] LABS: Add Manual Diff / Slide Review NO; Basophils Absolute Auto 100 /uL (0-100); Basophils Percent Auto 1.2 % (0-2); Eosinophils Absolute Auto 500 /uL (0-450); Hematocrit 32.3 % (41-53); Hemoglobin 10.6 g/dL (13.5-17.5); Lymphocytes Absolute Auto 1500 /uL (1100-4500); Lymphocytes Percent Auto 16.9 % (25-40); Mean Corpuscular HGB Conc 32.9 % (30-36); Mean Corpuscular Hemoglobin 28.6 PG (26-34); Mean Corpuscular Volume 86.9 fL (80-100); Monocytes Absolute Auto 700 /uL (0-900); Neutrophils Absolute Auto 5900 /uL (1500-7000); Neutrophils Percent Auto 67.9 % (50-75); Platelet Count 560 X10^3/uL (150-400); Red Blood Cell Count 3.71 X10^6/uL (4.5-5.9); Red Cell Distribution Width 15.1 % (11.6-14.8); White Blood Cell Count 8.7 X10^3/uL (4.5-11.0)
[2022-06-20 12:41] VITALS: BP 129/74; PULSE 110; RESP 16; TEMP 36.8; O2SAT 96
[2022-06-20 13:02] LABS: Alanine Aminotransferase 32 IU/L (<50); Albumin 3.4 g/dL (3.5-5.0); Albumin Globulin Ratio 0.8 (1.0-2.8); Alkaline Phosphatase 118 U/L (38-126); Aspartate Aminotransferase 50 IU/L (17-59); BUN Creatinine Ratio 30.4 (6-22); Bilirubin Total 0.3 mg/dL (0.2-1.3); Blood Urea Nitrogen 17 mg/dL (9-20); Calcium 9.1 mg/dL (8.4-10.2); Carbon Dioxide 33 mmol/L (22-32); Chloride 97 mmol/L (98-107); Estimated Glomerular Filt Rate > 60 mL/min (>60); Globulin 4.4 g/dL (1.7-4.1); Glucose 102 mg/dL (70-100); HEMOLYSIS < 15 (0-50); Magnesium 2.3 mg/dL (1.6-2.3); Potassium 4.3 mmol/L (3.4-5.1); Sodium 137 mmol/L (137-145); Total Protein 7.8 g/dL (6.3-8.2)
[2022-06-20 13:40] VITALS: PULSE 103; RESP 16; O2SAT 96
[2022-06-20] MEDS: ALBUTEROL 2.5 MG/3 ML NEB (ADULT) INH ×2 (13:40→19:17)
[2022-06-20 19:17] VITALS: PULSE 105; RESP 16; O2SAT 95
[2022-06-20] MEDS: PANTOPRAZOLE DR 40 MG TABLET PO (20:59)
[2022-06-21] VITALS: BP 98/65; PULSE 106; RESP 19; TEMP 36.6; O2SAT 97
[2022-06-21 06:00] VITALS: BP 111/69; PULSE 97; RESP 16; TEMP 36.8; O2SAT 96
[2022-06-21 08:21] VITALS: PULSE 104; RESP 16; O2SAT 85
[2022-06-21] MEDS: ALBUTEROL 2.5 MG/3 ML NEB (ADULT) INH ×2 (08:21→20:02)
[2022-06-21] MEDS: NICOTINE 21 MG PATCH TOP (09:19)
[2022-06-21] MEDS: ENOXAPARIN 40 MG/0.4 ML SYRINGE SUBCUT (09:19)
[2022-06-21] MEDS: SODIUM CHLORIDE 0.9% FLUSH 10 ML IV ×2 (09:20→21:16)
[2022-06-21] MEDS: SENNOSIDES 8.6 MG TABLET PO (09:20)
[2022-06-21] MEDS: OXYCODONE IR 5 MG TABLET PO ×3 (09:20→23:25)
[2022-06-21] MEDS: clonazePAM 0.5 MG TABLET 1 MG PO ×3 (09:21→23:25)
[2022-06-21] MEDS: VORICONAZOLE 200 MG TABLET PO ×2 (09:34→21:16)
--- NOTE | 2022-06-21 11:21 | DI.RAD.S_ITS ---
PROCEDURE: XR CHEST 1V INDICATIONS: Change settings on chest tube. TECHNIQUE: One view of the chest was acquired. COMPARISON: [facility], CR, XR CHEST 1V, 06/15/2022, 7:16. [facility], CR, XR CHEST 1V, 06/16/2022, 7:20. [facility], CR, XR CHEST 1V, 06/17/2022, 12:42. [facility], CR, XR CHEST 1V, 06/18/2022, 8:44. FINDINGS: Surgical changes and devices: There is a right-sided pleural drain, which is similar to the prior examination. Lungs and pleura: There is a small right-sided pneumothorax, which is slightly smaller than on the 06/18/2022 examination. There remains poorly defined opacity involving left lung apex laterally. Mediastinum: Mediastinal contours appear normal. Heart size is normal. Bones and chest wall: No suspicious bony lesions. Age-appropriate bony degenerative changes are seen. Overlying soft tissues appear unremarkable. IMPRESSION: Continued decreased size of the right-sided pneumothorax. Stable right-sided pleural drain. Stable left lateral lung apex poorly defined opacity. Dictated by: Karan Montes M.D. on 06/21/2022 at 12:03 Approved by: Karan Montes M.D. on 06/21/2022 at 12:05
--- NOTE | 2022-06-21 11:22 | PM.PN.1 ---
Subjective Subjective Interval history: Mr. Matias is doing okay today. No complaints of shortness of breath. Concerned about missing an appointment with his primary care doctor for medication review. Feels like he needs to have a bowel movement asks for bed keller. Exam Vital Signs (past 8 hours): - 06/21/22 06:00 06/21/22 08:21 Temperature 98.2 F Pulse Rate 97 H 104 H Respiratory Rate 16 16 Blood Pressure 111/69 Pulse Oximetry 96 85 L Oxygen Delivery Method Room Air Fraction of Inspired Oxygen 21 SaO2/FiO2 Ratio 452 Oxygen Delivery Method Room Air Oxygen Flow Rate 0 Narrative Exam Narrative: Patient is cachectic lying in bed. He is alert appropriate and pleasant Chest tube is in place but the dressing is becoming loose. The tube is sutured to the skin and in place. Chest tube presently is on suction when removed and checked for air leak I do not see an air leak today. Objective Labs Result Diagrams: 06/20/22 12:15 06/20/22 12:15 Labs: Laboratory Results - last 24 hr 06/20/22 06/20/22 06/20/22 12:15 12:15 12:15 WBC 8.7 Cancelled RBC 3.71 L Cancelled Hgb 10.6 L Cancelled Hct 32.3 L Cancelled MCV 86.9 Cancelled MCH 28.6 Cancelled MCHC 32.9 Cancelled RDW 15.1 H Cancelled Plt Count 560 H Cancelled Neut % (Auto) 67.9 Cancelled Lymph % (Auto) 16.9 L Cancelled [place] % (Auto) 8.0 Cancelled Eos % (Auto) 6.0 H Cancelled Baso % (Auto) 1.2 Cancelled Neut # (Auto) 5900 Cancelled Lymph # (Auto) 1500 Cancelled [place] # (Auto) 700 Cancelled Eos # (Auto) 500 H Cancelled Baso # (Auto) 100 Cancelled Sodium 137 Potassium 4.3 Chloride 97 L Carbon Dioxide 33 H BUN 17 Creatinine 0.56 L Estimated GFR > 60 BUN/Creatinine Ratio 30.4 H Glucose 102 H Calcium 9.1 Magnesium 2.3 Total Bilirubin 0.3 AST 50 ALT 32 Alkaline Phosphatase 118 Total Protein 7.8 Albumin 3.4 L Globulin 4.4 H Albumin/Globulin Ratio 0.8 L 06/20/22 12:15 WBC RBC Hgb Hct MCV MCH MCHC RDW Plt Count Neut % (Auto) Lymph % (Auto) [place] % (Auto) Eos % (Auto) Baso % (Auto) Neut # (Auto) Lymph # (Auto) [place] # (Auto) Eos # (Auto) Baso # (Auto) Sodium Cancelled Potassium Cancelled Chloride Cancelled Carbon Dioxide Cancelled BUN Cancelled Creatinine Cancelled Estimated GFR Cancelled BUN/Creatinine Ratio Cancelled Glucose Cancelled Calcium Cancelled Magnesium Total Bilirubin Cancelled AST Cancelled ALT Cancelled Alkaline Phosphatase Cancelled Total Protein Cancelled Albumin Cancelled Globulin Cancelled Albumin/Globulin Ratio Cancelled [facility] Medical History Asthma (02/02/11) Chronic abdominal pain Dorsalgia (02/02/11) Generalized anxiety disorder (02/02/11) Hypercalcemia Hyperlipidemia Obstructive sleep apnea syndrome (02/02/11) Pancreatitis (~2011) Scoliosis (~1982) Smoker Smoker unmotivated to quit (02/02/11) Smoking greater than 30 pack years Tinnitus (2005) Surgical History Anesthesia Status post cholecystectomy (2011) Family History Father No problems noted. Mother No problems noted. Brother No problems noted. Sister No problems noted. Family/Other No problems noted. Family/Other No problems noted. Social History household members: family and children Smoking Status: Current some day smoker alcohol intake: former Assessment & Plan Assessment and plan (1) Malnutrition related to chronic disease: Status: Acute (2) Pneumothorax on right: Status: Acute Plan I have placed the chest tube on water seal this morning and will check an x-ray to follow-up. If the x-ray looks stable we will continue on water seal. I discussed with the team during meeting today status of workup on his cavitary lung lesions. They are continuing to look for options for him to obtain a diagnosis. I offered to be available for a phone call with any physician or transfer center if needed. Time Spent With Patient Critical Care time: I spent a total of [] minutes of critical care time on this patient's care today; this time is exclusive of procedural time.
[2022-06-21 12:00] VITALS: BP 116/69; PULSE 123; RESP 21; TEMP 36.6; O2SAT 91
--- NOTE | 2022-06-21 13:02 | DIET.CONS2 ---
Dietary Inpatient Consultation Note Admission Date: 06/12/2022 14:30 Pt maintains compliance to ONS plan. RD spoke with pt at bedside this morning. Pt states he only consumes Boost+ at home due to difficulty swallowing. Pt would benefit from Speech Therapy consultation as pt refusing all non-thin liquid textures due to reported swallowing issues. Diet: 06/13/22 Breakfast Dysphagia Diet Diet Modifications: chop food, enlive tid Liquid consistency: Normal/Thin Food texture: Dysphagia Mechanical Soft Nutrition Percent Meal Consumed ensure 06/20/22 18:28 Percent Meal Consumed ensure 06/20/22 12:00 Percent Meal Consumed Pt refused breakfast 06/20/22 08:57 Percent Meal Consumed Pt refused dinner 06/19/22 18:18 Electronically Signed by: Saira Casanova 06/21/22 13:02 Clinical Dietitian [address] [id number]
--- NOTE | 2022-06-21 14:31 | CM.DPC ---
DCP Cont: Per MD and Surgeon today, pt was switched to water seal again to see if seal will hold and still no accepting hospital for transfer for Thoracic Surgeon and likely if seal holds and pt stable will d/c home with outpt follow up. Per Rn Float, recommending ST eval due to pt's ongoing swallow issues and difficulty with thin liquids. Pt has been tolerating his increased calorie needs here but remains malnourished due to his chronic malnutrition. No ST orders yet at this time. Pt was declined by [facility] as they are not contracted with his [employer] insurance and therefore referral sent to [facility] and pt may qualify for their Telehealth Program. F2F previously completed. Plan: SW to follow for determination if water seal will hold on his chest tube towards plan of d/c home with new [facility] referral and will need to fax d/c summ and orders at discharge. SW to follow for ST eval orders to determine any recommendation for swallow concerns. NIMA Kitchen
[2022-06-21 17:16] VITALS: BP 112/59; PULSE 104; RESP 18; TEMP 37.2; O2SAT 97
--- NOTE | 2022-06-21 17:47 | P.PN_ITS ---
Exam Vital Signs (past 8 hours): - 06/21/22 12:00 06/21/22 17:16 Temperature 97.8 F 98.9 F Pulse Rate 123 H 104 H Respiratory Rate 21 18 Blood Pressure 116/69 112/59 L Pulse Oximetry 91 97 Oxygen Flow Rate 0 0 Fraction of Inspired Oxygen 21 SaO2/FiO2 Ratio 452 Oxygen Delivery Method Room Air Oxygen Flow Rate 0 Narrative Exam Narrative: GEN: no acute distress, extremely thin male, cachectic HEENT: temporal wasting noted PULM: breath sounds present bilaterally, no wheezes or rales. Chest tube on right side. ABD: soft, nontender, nondistended, no organomegaly EXT: warm and well perfused with no edema NEURO: awake, alert, oriented, no focal deficits Objective Labs Result Diagrams: 06/20/22 12:15 06/20/22 12:15 [facility] Medical History Asthma (02/02/11) Chronic abdominal pain Dorsalgia (02/02/11) Generalized anxiety disorder (02/02/11) Hypercalcemia Hyperlipidemia Obstructive sleep apnea syndrome (02/02/11) Pancreatitis (~2011) Scoliosis (~1982) Smoker Smoker unmotivated to quit (02/02/11) Smoking greater than 30 pack years Tinnitus (2005) Surgical History Anesthesia Status post cholecystectomy (2011) Family History Father No problems noted. Mother No problems noted. Brother No problems noted. Sister No problems noted. Family/Other No problems noted. Family/Other No problems noted. Social History household members: family and children Smoking Status: Current some day smoker alcohol intake: former Assessment & Plan Assessment & Plan narrative: # bilateral lung infiltrates -CT chest showed left upper lobe cavitary lesion vs spiculated nodule which Dr. Henriquez cardiothoracic surg did not think was cancer but more likely infectious -Dr. Henriquez recommending transfer for ID consultation -[place] ID recommended starting cefepime, vanc and voriconazole as well as further workup -ordered fungitell, galactomannin, cocci IgG/IgM, cryptococcal Ag and pending -quant gold negative, aspergillus negative, afb smear negative x3 now, afb cultures pending but will take 2 months. -yeast growing on sputum culture, unclear if contaminant, further workup requested to micro lab and is still pending -no longer requires airborne isolation with negative smears x3. -transfer pending to higher level of care, though no current beds available. # spontaneous tension pneumothorax, present on admissionm -etiology possibly related to RUL mass and recent biopsy in Mar 2022 -chest tube in place to suction, repeat CXR with improvement in PTX and resolution of mediastinal shift. -however persistent pneumothorax remains and air leak is noted -gen surg consulted to manage tube, recommending transfer for possible cardiothoracic surg management -failed chest tube to water seal on 06/18 with re-expansion. -now on water seal on 06/21 as no air leak present prior, currently tolerating and repeat CXR with small pneumothorax. Patient feels breathing is improved. -appreciate general surgery consultation. # acute hypoxic resp failure, present on admission. resolved. -secondary to PTX, was satting 87% on room air and needed up to 4L NC -now weaned to room air with chest tube in place # Severe Acute on Chronic Protein Calorie Malnutrition r/t inadequate PO intake aeb BMI 15.3 (severe), MNA score 4 (malnourished) on admission, pt would benefit from artificial enteral nutrition but pt requests PO intervention, pt with poor fitting dentures limiting PO intake and uncharacterized lung infection with SOB limiting appetite and ability to eat. -The patient is at much higher risk for medical and surgical complications because of his malnutrition.? This increases the difficulty and complexity of medical and surgical interventions and increases the chances of poor outcomes such as morbidity and mortality. -providing three ONS Ensure Enlives daily providing 100% kcals and 120% protein needs. -providing Dysphagia Mechanical Soft High Protein/High kcal diet at half portions. -[employer] financials consultant providing ONS reccs with coupons to continue tid ONS Ensure Plus until pt BMI >18. # tobacco dependence and COPD -nicotine patch ordered -albuterol PRN # anxiety -continue home klonopin Dispo: pending transfer for cardiothoracic surgery. No beds currently. If patient can pass water seal test to have chest tube removed, he may be able to f/u outpatient for further workup of his lung lesions. Time Spent With Patient Critical Care time: I spent a total of [] minutes of critical care time on this patient's care today; this time is exclusive of procedural time.
--- NOTE | 2022-06-21 19:53 | PC.NURSE ---
Shift summary: Patient alert and oriented, able to make needs known. Patient reports he met with script reader again today and agrees to drink 3 Ensure Live during the day, patient tolerating and drinking water but taking in no other food. Patient was up to BSC with 1 PA assistance for bowel movement, large, dry and hard. 3 Allevyn gentle border dressings in place to bony prominences on back side and buttocks, remain CDI. Patient able to move and reposition himself in bed, sitting on waffle mattress. Chest tube dressing changed by Dr. Mueller this morning and site remains intact without bleeding, or crepitus. Dr. Mueller changed CT to waterseal this morning and patient tolerating well, denies shortness of breath. CXR noted by MD and continue to maintain waterseal this shift. Call light within reach.
[2022-06-21] MEDS: PANTOPRAZOLE DR 40 MG TABLET PO (21:16)
[2022-06-22] VITALS (8 sets, daily range): BP systolic 100–119; BP diastolic 61–66; PULSE 96–110; RESP 16–19; TEMP 36.4–37.3; O2SAT 95–98
--- NOTE | 2022-06-22 07:24 | PM.PN.1 ---
Subjective Subjective Date Patient Seen: 06/22/22 Interval history: Patient has no complaints. Says he is breathing fine. Exam Vital Signs (past 8 hours): - 06/22/22 00:00 06/22/22 06:00 Temperature 98.2 F 99.1 F Pulse Rate 103 H 99 H Respiratory Rate 19 17 Blood Pressure 109/66 114/64 Pulse Oximetry 97 98 Fraction of Inspired Oxygen 21 SaO2/FiO2 Ratio 452 Oxygen Delivery Method Room Air Oxygen Flow Rate 0 Narrative Exam Narrative: GEN: no acute distress, extremely thin male, cachectic HEENT: temporal wasting noted PULM: breath sounds present bilaterally, no wheezes or rales. Chest tube on right side. ABD: soft, nontender, nondistended, no organomegaly EXT: warm and well perfused with no edema NEURO: awake, alert, oriented, no focal deficits Objective Labs Result Diagrams: 06/20/22 12:15 06/20/22 12:15 [facility] Medical History Asthma (02/02/11) Chronic abdominal pain Dorsalgia (02/02/11) Generalized anxiety disorder (02/02/11) Hypercalcemia Hyperlipidemia Obstructive sleep apnea syndrome (02/02/11) Pancreatitis (~2011) Scoliosis (~1982) Smoker Smoker unmotivated to quit (02/02/11) Smoking greater than 30 pack years Tinnitus (2005) Surgical History Anesthesia Status post cholecystectomy (2011) Family History Father No problems noted. Mother No problems noted. Brother No problems noted. Sister No problems noted. Family/Other No problems noted. Family/Other No problems noted. Social History household members: family and children Smoking Status: Current some day smoker alcohol intake: former Assessment & Plan Assessment & Plan narrative: # bilateral lung infiltrates -CT chest showed left upper lobe cavitary lesion vs spiculated nodule which Dr. Henriquez cardiothoracic surg did not think was cancer but more likely infectious -Dr. Henriquez recommending transfer for ID consultation -[place] ID recommended starting cefepime, vanc and voriconazole as well as further workup -ordered fungitell, galactomannin, cocci IgG/IgM, cryptococcal Ag and pending -quant gold negative, aspergillus negative, afb smear negative x3 now, afb cultures pending but will take 2 months. -yeast growing on sputum culture, unclear if contaminant, further workup requested to micro lab and is still pending -no longer requires airborne isolation with negative smears x3. -transfer pending to higher level of care, though no current beds available. # spontaneous tension pneumothorax, present on admissionm -etiology possibly related to RUL mass and recent biopsy in Mar 2022 -chest tube in place to suction, repeat CXR with improvement in PTX and resolution of mediastinal shift. -however persistent pneumothorax remains and air leak is noted -gen surg consulted to manage tube, recommending transfer for possible cardiothoracic surg management -failed chest tube to water seal on 06/18 with re-expansion. -now on water seal on 06/21 as no air leak present prior, currently tolerating and repeat CXR 06/22 with small pneumothorax. Patient feels breathing is improved. -appreciate general surgery consultation. -continue water seal and repeat CXR on 06/23 # acute hypoxic resp failure, present on admission. resolved. -secondary to PTX, was satting 87% on room air and needed up to 4L NC -now weaned to room air with chest tube in place # Severe Acute on Chronic Protein Calorie Malnutrition r/t inadequate PO intake aeb BMI 15.3 (severe), MNA score 4 (malnourished) on admission, pt would benefit from artificial enteral nutrition but pt requests PO intervention, pt with poor fitting dentures limiting PO intake and uncharacterized lung infection with SOB limiting appetite and ability to eat. -The patient is at much higher risk for medical and surgical complications because of his malnutrition.? This increases the difficulty and complexity of medical and surgical interventions and increases the chances of poor outcomes such as morbidity and mortality. -providing three ONS Ensure Enlives daily providing 100% kcals and 120% protein needs. -providing Dysphagia Mechanical Soft High Protein/High kcal diet at half portions. -qc lab technician providing ONS reccs with coupons to continue tid ONS Ensure Plus until pt BMI >18. -speech consulted and recommended barium swallow # tobacco dependence and COPD -nicotine patch ordered -albuterol PRN # anxiety -continue home klonopin Dispo: Pending if patient can pass water seal test to have chest tube removed, he may be able to f/u outpatient for further workup of his lung lesions. Time Spent With Patient Critical Care time: I spent a total of [] minutes of critical care time on this patient's care today; this time is exclusive of procedural time.
[2022-06-22] MEDS: ALBUTEROL 2.5 MG/3 ML NEB (ADULT) INH ×2 (09:01→18:34)
[2022-06-22] MEDS: NICOTINE 21 MG PATCH TOP (09:13)
[2022-06-22] MEDS: SODIUM CHLORIDE 0.9% FLUSH 10 ML IV ×2 (09:13→21:47)
[2022-06-22] MEDS: VORICONAZOLE 200 MG TABLET PO ×2 (09:14→21:46)
[2022-06-22] MEDS: ENOXAPARIN 40 MG/0.4 ML SYRINGE SUBCUT (09:14)
[2022-06-22] MEDS: clonazePAM 0.5 MG TABLET 1 MG PO ×3 (09:22→22:53)
[2022-06-22] MEDS: OXYCODONE IR 5 MG TABLET PO ×3 (09:22→22:53)
--- NOTE | 2022-06-22 09:27 | DI.RAD.S_ITS ---
PROCEDURE: XR CHEST 1V INDICATIONS: pneumothorax TECHNIQUE: One view of the chest was acquired. COMPARISON: [facility], , XR CHEST 1V, 06/21/2022, 12:21. FINDINGS: Surgical changes and devices: Right-sided pigtail catheter is again seen. Lungs and pleura: Stable small right apically pneumothorax not significantly changed in size from previous study. Persistent opacity in left upper lung field is unchanged. Mediastinum: Mediastinal contours appear normal. Heart size is normal. Bones and chest wall: No suspicious bony lesions. Overlying soft tissues appear unremarkable. IMPRESSION: No significant changes from previous day. Stable small right apical pneumothorax and persistent left lateral upper lung field opacities. Dictated by: Nidhi Walsh M.D. on 06/22/2022 at 9:54 Approved by: Nidhi Walsh M.D. on 06/22/2022 at 9:58
--- NOTE | 2022-06-22 10:03 | SLP.IPNOTE ---
Order received. Chart records reviewed. Pt was seated in bed. He refused PO solids noting he has just taken pain and anxiety medications. RD came into room and also attempted to encourage pt to try a few bites of applesauce. Pt remarked maybe later, I need my meds to kick in..' Will try to see pt later today.
--- NOTE | 2022-06-22 10:54 | DIET.CONS2 ---
Dietary Inpatient Consultation Note Admission Date: 06/12/2022 14:30 Pt declined NEUROPSYCHIATRIC AIDE assessment of solid foods today stating his RD told him it was okay for him to just drink ensure. RD attempted to coax pt to complete swallow assessment in collaboration with NEUROPSYCHIATRIC AIDE and while ONS will meet his nutrition needs, incorporating solid foods is best for pt's overall health and healing. Pt would benefit from MBSS to assess whether or not esophagus is compromised by pulmonary process or other means. Pt is only 71% of UBW at this time with severe malnutrition only consuming thin liquids. Please try to keep pt on med/routine schedule to reduce his anxiety and NEUROPSYCHIATRIC AIDE will revisit MBSS with pt tomorrow- ensure with barium. RD happy to assist in any way necessary. In the meantime, pt continues with ONS. Diet: 06/13/22 Breakfast Dysphagia Diet Diet Modifications: chop food, enlive tid Liquid consistency: Normal/Thin Food texture: Dysphagia Mechanical Soft Nutrition Percent Meal Consumed ensure 06/20/22 18:28 Percent Meal Consumed ensure 06/20/22 12:00 Electronically Signed by: Saira Casanova 06/22/22 10:54 Clinical Dietitian [address] [address]
--- NOTE | 2022-06-22 12:04 | P.PN_ITS ---
Exam Vital Signs (past 8 hours): - 06/22/22 06:00 06/22/22 09:03 06/22/22 09:48 Temperature 99.1 F 97.8 F Pulse Rate 99 H 96 H 110 H Respiratory Rate 17 16 16 Blood Pressure 114/64 119/61 Pulse Oximetry 98 97 98 Oxygen Delivery Method Room Air Oxygen Flow Rate 0 Fraction of Inspired Oxygen 21 SaO2/FiO2 Ratio 452 Oxygen Delivery Method Room Air Oxygen Flow Rate 0 Objective Labs Result Diagrams: 06/20/22 12:15 06/20/22 12:15 [facility] Medical History Asthma (02/02/11) Chronic abdominal pain Dorsalgia (02/02/11) Generalized anxiety disorder (02/02/11) Hypercalcemia Hyperlipidemia Obstructive sleep apnea syndrome (02/02/11) Pancreatitis (~2011) Scoliosis (~1982) Smoker Smoker unmotivated to quit (02/02/11) Smoking greater than 30 pack years Tinnitus (2005) Surgical History Anesthesia Status post cholecystectomy (2011) Family History Father No problems noted. Mother No problems noted. Brother No problems noted. Sister No problems noted. Family/Other No problems noted. Family/Other No problems noted. Social History household members: family and children Smoking Status: Current some day smoker alcohol intake: former Assessment & Plan Assessment & Plan narrative: Chest x-ray reviewed. Looks okay continue to water seal for today recheck x-ray in a.m. Time Spent With Patient Critical Care time: I spent a total of [] minutes of critical care time on this patient's care today; this time is exclusive of procedural time.
--- NOTE | 2022-06-22 14:47 | SLP.IPNOTE ---
Pt scheduled for MBSS at 930 tomorrow morning (06/23/22).
[2022-06-22] MEDS: PANTOPRAZOLE DR 40 MG TABLET PO (21:46)
[2022-06-23] VITALS (7 sets, daily range): BP systolic 104–118; BP diastolic 62–75; PULSE 72–114; RESP 16–20; TEMP 36.4–36.8; O2SAT 92–98
[2022-06-23] MEDS: clonazePAM 0.5 MG TABLET 1 MG PO ×3 (06:33→23:39)
[2022-06-23] MEDS: OXYCODONE IR 5 MG TABLET PO ×3 (06:33→23:40)
--- NOTE | 2022-06-23 09:12 | PM.PN.1 ---
Subjective Subjective Date Patient Seen: 06/23/22 Interval history: CXR this morning showed interval worsening of pneumothorax. Chest tube placed back on suction. Patient has no complaints. Able to complete barium swallow which showed good function. Exam Vital Signs (past 8 hours): - 06/23/22 06:00 06/23/22 07:00 Temperature 97.8 F Pulse Rate 99 H Respiratory Rate 17 Blood Pressure 117/68 Pulse Oximetry 96 Oxygen Delivery Method Room Air Fraction of Inspired Oxygen 21 SaO2/FiO2 Ratio 452 Oxygen Delivery Method Room Air Oxygen Flow Rate 0 Narrative Exam Narrative: GEN: no acute distress, extremely thin male, cachectic HEENT: temporal wasting noted PULM: breath sounds present bilaterally, no wheezes or rales. Chest tube on right side. ABD: soft, nontender, nondistended, no organomegaly EXT: warm and well perfused with no edema NEURO: awake, alert, oriented, no focal deficits Objective Labs Result Diagrams: 06/20/22 12:15 06/20/22 12:15 [facility] Medical History Asthma (02/02/11) Chronic abdominal pain Dorsalgia (02/02/11) Generalized anxiety disorder (02/02/11) Hypercalcemia Hyperlipidemia Obstructive sleep apnea syndrome (02/02/11) Pancreatitis (~2011) Scoliosis (~1982) Smoker Smoker unmotivated to quit (02/02/11) Smoking greater than 30 pack years Tinnitus (2005) Surgical History Anesthesia Status post cholecystectomy (2011) Family History Father No problems noted. Mother No problems noted. Brother No problems noted. Sister No problems noted. Family/Other No problems noted. Family/Other No problems noted. Social History household members: family and children Smoking Status: Current some day smoker alcohol intake: former Assessment & Plan Assessment & Plan narrative: # bilateral lung infiltrates -CT chest showed left upper lobe cavitary lesion vs spiculated nodule which Dr. Henriquez cardiothoracic surg did not think was cancer but more likely infectious -Dr. Henriquez recommending transfer for ID consultation -[place] recommended starting cefepime, vanc and voriconazole as well as further workup -ordered fungitell, galactomannin, cocci IgG/IgM, cryptococcal Ag and pending -quant gold negative, aspergillus negative, afb smear negative x3 now, afb cultures pending but will take 2 months. -yeast growing on sputum culture, unclear if contaminant, further workup requested to micro lab and is still pending -no longer requires airborne isolation with negative smears x3. -transfer pending to higher level of care, though no current beds available. # spontaneous tension pneumothorax, present on admission -etiology possibly related to RUL mass and recent biopsy in Mar 2022 -chest tube in place to suction, repeat CXR with improvement in PTX and resolution of mediastinal shift. -however persistent pneumothorax remains and air leak is noted -gen surg consulted to manage tube, recommending transfer for possible cardiothoracic surg management -failed chest tube to water seal on 06/18 with re-expansion. -now on water seal on 06/21 as no air leak present prior, currently tolerating and repeat CXR 06/22 with small pneumothorax. Patient feels breathing is improved. -appreciate general surgery consultation. -CXR 06/23 with interval worsening of PTX so chest tube placed back on suction # acute hypoxic resp failure, present on admission. resolved. -secondary to PTX, was satting 87% on room air and needed up to 4L NC -now weaned to room air with chest tube in place # Severe Acute on Chronic Protein Calorie Malnutrition r/t inadequate PO intake aeb BMI 15.3 (severe), MNA score 4 (malnourished) on admission, pt would benefit from artificial enteral nutrition but pt requests PO intervention, pt with poor fitting dentures limiting PO intake and uncharacterized lung infection with SOB limiting appetite and ability to eat. -The patient is at much higher risk for medical and surgical complications because of his malnutrition.? This increases the difficulty and complexity of medical and surgical interventions and increases the chances of poor outcomes such as morbidity and mortality. -providing three ONS Ensure Enlives daily providing 100% kcals and 120% protein needs. -providing Dysphagia Mechanical Soft High Protein/High kcal diet at half portions. -farm management agent providing ONS reccs with coupons to continue tid ONS Ensure Plus until pt BMI >18. -speech consulted and recommended barium swallow which was completed on 06/23 and normal # tobacco dependence and COPD -nicotine patch ordered -albuterol PRN # anxiety -continue home klonohayder Dispo: Pending if patient can pass water seal test to have chest tube removed, he may be able to f/u outpatient for further workup of his lung lesions. Time Spent With Patient Critical Care time: I spent a total of [] minutes of critical care time on this patient's care today; this time is exclusive of procedural time.
--- NOTE | 2022-06-23 09:54 | DI.RAD.S_ITS ---
PROCEDURE: XR CHEST 1V INDICATIONS: f/u ptx, check chest tube TECHNIQUE: One view of the chest was acquired. COMPARISON: [facility], CR, XR CHEST 1V, 06/22/2022, 9:26. FINDINGS: Surgical changes and devices: Right-sided chest tube is again seen. Lungs and pleura: There is interval significant increase in size of patient's known right-sided pneumothorax measures at up to 5.6 cm in transverse dimension. Ill-defined opacity in left upper lung field is again seen and unchanged. No left-sided pneumothorax. Mediastinum: Mediastinal contours appear normal. Heart size is normal. Bones and chest wall: No suspicious bony lesions. Overlying soft tissues appear unremarkable. IMPRESSION: Interval significant increase in size of the right-sided pneumothorax. Right-sided chest tube is in place. Persistent left upper lung field opacities. No left-sided pneumothorax. Dictated by: Romaine Pond M.D. on 06/23/2022 at 10:43 Approved by: Romaine Pond M.D. on 06/23/2022 at 10:44
[2022-06-23] MEDS: VORICONAZOLE 200 MG TABLET PO ×2 (09:55→21:48)
[2022-06-23] MEDS: ENOXAPARIN 40 MG/0.4 ML SYRINGE SUBCUT (09:55)
[2022-06-23] MEDS: SODIUM CHLORIDE 0.9% FLUSH 10 ML IV ×2 (09:56→21:48)
[2022-06-23] MEDS: NICOTINE 21 MG PATCH TOP (09:56)
--- NOTE | 2022-06-23 10:03 | PC.NURSE ---
Patient refusing nursing Q2 turns. Patient is A/O x4, able to reposition self, and standby assist to ambulate.
[2022-06-23] MEDS: ALBUTEROL 2.5 MG/3 ML NEB (ADULT) INH ×2 (10:05→19:14)
--- NOTE | 2022-06-23 10:27 | DI.RAD.S_ITS ---
PROCEDURE: FL BARIUM SWALLOW W SPEECH INDICATIONS: possible dysphagia COMPARISON: None. TECHNIQUE: Examination was conducted in conjunction with speech pathology per standard protocol. In the lateral projection, filming was performed of the patient swallowing. AP projection filming may also be performed with patient swallowing. COMPARISON: FINDINGS: Function: The oral preparatory phase appears normal, with proper containment. The subsequent oral propulsive phase, pharyngeal phase, and esophageal phase of swallowing also appear normal with all proffered substances. No laryngotracheal penetration or aspiration. No pathologic vallecular pooling. Morphology: No cricopharyngeal bar is identified. No cervical esophageal webs. No Zenker's diverticulum. No strictures. IMPRESSION: No evidence of aspiration or penetration. Please see speech pathology report for complete findings. Dictated by: Reed Zarate M.D. on 06/23/2022 at 10:53 Approved by: Reed Zarate M.D. on 06/23/2022 at 10:53
--- NOTE | 2022-06-23 11:35 | P.PN_ITS ---
Subjective Subjective Date Patient Seen: 06/23/22 Time Patient Seen: 10:50 Interval history: And states that he did start to feel some shortness of breath last night. He went down this morning for swallow eval and was feeling short of breath during it and is worried that that might have affected the results. Otherwise he is feeling about baseline and has no other questions or complaints Exam Vital Signs (past 8 hours): - 06/23/22 06:00 06/23/22 07:00 06/23/22 10:05 Temperature 97.8 F Pulse Rate 99 H 114 H Respiratory Rate 17 16 Blood Pressure 117/68 Pulse Oximetry 96 92 Oxygen Delivery Method Room Air Room Air Fraction of Inspired Oxygen 21 SaO2/FiO2 Ratio 452 Oxygen Delivery Method Room Air Oxygen Flow Rate 0 Narrative Exam Narrative: Patient is seated in bed appropriate and pleasant. He remains severely mal nourished and cachectic His chest tube is in place the dressing is clean dry and intact breathing is nonlabored. The chest tube is on water seal and is replaced to wall suction during the exam.. Objective Labs Result Diagrams: 06/20/22 12:15 06/20/22 12:15 [facility] Medical History Asthma (02/02/11) Chronic abdominal pain Dorsalgia (02/02/11) Generalized anxiety disorder (02/02/11) Hypercalcemia Hyperlipidemia Obstructive sleep apnea syndrome (02/02/11) Pancreatitis (~2011) Scoliosis (~1982) Smoker Smoker unmotivated to quit (02/02/11) Smoking greater than 30 pack years Tinnitus (2005) Surgical History Anesthesia Status post cholecystectomy (2011) Family History Father No problems noted. Mother No problems noted. Brother No problems noted. Sister No problems noted. Family/Other No problems noted. Family/Other No problems noted. Social History household members: family and children Smoking Status: Current some day smoker alcohol intake: former Assessment & Plan Assessment and plan (1) Malnutrition related to chronic disease: Status: Acute (2) Lung mass: Status: Acute (3) Pneumothorax on right: Status: Acute Plan This morning's chest x-ray showed that the pneumothorax had recurred on water seal overnight. The tube was replaced to wall suction and we will recheck a x- ray to assure that the lung went back up. I would again recommend re doubling efforts for transfer as I am not sure if this air leak is going to heal conservatively. Further I feel as though he should be transferred to a facility with pulmonologists and thoracic surgeons who can do a bronchoscopy or a VATS procedure for the sake of diagnosis. At this time we really do not know what the cavitary lesions are in his lungs and without a diagnosis, whether or not they are being treated appropriately. Clinically he has been basically the same at baseline without much improvement or luckily worsening however there is just not much more that we can do at this facility. Time Spent With Patient Critical Care time: I spent a total of [] minutes of critical care time on this patient's care today; this time is exclusive of procedural time.
--- NOTE | 2022-06-23 11:38 | DI.RAD.S_ITS ---
PROCEDURE: XR CHEST 1V INDICATIONS: Change in chest tube settings. recheck PTX. TECHNIQUE: One view of the chest was acquired. COMPARISON: [facility], CR, XR CHEST 1V, 06/23/2022, 10:04. FINDINGS: Surgical changes and devices: Right chest tube unchanged. Lungs and pleura: Unchanged pneumothorax on the right. Left pleural spaces clear. Left apical pleural-parenchymal opacities are unchanged Mediastinum: Mediastinal contours appear normal. Heart size is normal. Bones and chest wall: No suspicious bony lesions. Overlying soft tissues appear unremarkable. IMPRESSION: Unchanged right pneumothorax and right pigtail thoracostomy tube position. Dictated by: Bert Tom M.D. on 06/23/2022 at 11:21 Approved by: Bert Tom M.D. on 06/23/2022 at 11:23
--- NOTE | 2022-06-23 11:54 | ST.SWALLOW ---
Visit Care Team Role Provider Type Mikey Johns MD Primary Care Provider Physician Specialty: Family Practice Address: [address] [place] [address], [id number] Email: [email or web address] Martin Arce MD Other Providers Physician Specialty: General Surgery Address: [address] [place] [address], [facility] Email: [email or web address] Marco A Fonseca MD Emergency Provider Physician Referring Provider Specialty: Emergency Medicine Address: [address] [place] [address], [address] Email: [email or web address] Attending Provider Physician Specialty: Internal Medicine Address: [address] [place] [address], [id number] Email: [email or web address] Admit Provider Physician Other Providers Specialty: Internal Medicine Address: [address] [place] [address], [id number] Email: [email or web address] Modified Barium Swallow Study [employer] Modified Barium Swallow Study Start: 06/23/22 10:19 Freq: Status: Active Protocol: Document 06/23/22 10:19 LNK (Rec: 06/23/22 10:39 LNK [id number]) Modified Barium Swallow Study Total Time Visit Start Time 09:30 Visit Stop Time 10:00 Total Visit Minutes [address] 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 He lives at home with his mother and EMS was called where he was found to be 87% on room air. Patient is extremely thin and says he has been losing lots of weight due to issues with his dentures and unable to eat foods well. He says he was 134lbs a month ago and is now 127lbs. He has not had his chewing issues addressed and continues to not have adequate po intake because of this. MBSS was recommended to r/o physiological reason for pt's reported difficulty swallowing . Subjective Observations Prt was anxious but cooperative. He arrived in the fluoroscopy chair. Instructions and directions for the procedure were described. Pt agreed to continue. RD, Saira Casanova, has established a level of trust with the pt. She accompanied him to the fluoro room and was present during the procedure. Patient Positioning Position View Lateral Imaging Lateral View Textures Administered Trials Presented Thin Liquid via Spoon,Thin Liquid via Cup,Dysphagia Blenderized Textures Oral Phase Source: MBSIMP (TM) (C) Bolus Specific Scoring Grid Lip Closure No Impairment (WNL) Tongue Control During Bolus Hold No Impairment (WNL) Bolus Transport/Lingual Motion WFL A/P Lingual Propulsion Delay No Oral Residue No Impairment (WNL) Nasal Regurgitation No Additional Oral Phase Observations OME was not formally assessed due to pt's anxiety and urgency to get started. He reported that he has upper and lower dentures, but that the lower does not fit. He reports he is unable to eat solids. When offered a trial of puree texture, pt took a very small amount into his mouth (very cautiously). Pharyngeal Phase Source: MBSIMP (TM) (C) Bolus Specific Scoring Grid Delayed Initiation of Pharyngeal Swallow No Soft Palate Elevation No Impairment (WNL) Tongue Base Strength/Range of Motion WFL Residue Along the Tongue Base trace to minimal Clearance of Residue Along Tongue Base WFL Laryngeal Elevation No Impairment (WNL) Anterior Hyoid Movement No Impairment (WNL) Epiglottic Range of Motion No Impairment (WNL) Vallecular Residue Yes: trace to minimal; more residue following puree trial Clearance of Vallecular Residue WFL Laryngeal Vestibular Closure No Impairment (WNL) Pharyngeal Stripping Wave No Impairment (WNL) Posterior Pharyngeal Wall Residue No Upper Esophageal Sphincter Opening WFL Residue in the Pyriform Sinuses No Esophageal Clearance Upright Position Minimal Impairment Additional Pharyngeal Phase Observations The pharyngeal phase was observed to be WFL. Residue was noted in the valeculla with some weakness of the tongue base demonstrated. With the puree texture, there was more residue in the valeculla; however this cleared with subsequent swallows. No laryngeal penetration nor aspiration was observed. No other pharyngeal residue noted. Throat clear x1 at the end of the MBSS. A/P View A/P View Observations Esophageal Function WFL,Reverse Peristalsis Esophageal Clearance Upright Position Minimal Impairment Additional Observations A screening scan of the esophagus indicated that there was a small amount of residue that showed reverse flow near the aortic arch. Esophageal function was noted to be WFL. Esophageal Observations Esophageal Function Esophagus was observed to empty into the stomach in a timely manner Clinical Impressions Dysphagia Type swallowing observed to be WFL Findings ST is not indicated at this time as the pt's challenges are not physiological/swallow- related but rather are anxiety based. Patient Appropriate for Therapy No Recommendations Diet Liquids Order [place] Diet Order Dysphagia Blenderized Medication Recommendation As Tolerated Comments Pt prefers Ensure Plus/Boost Plus, which are nectar thick. thin H2O safe Additional Dietary Needs Encourage to Self-Feed Aspiration Precautions Recommended Precautions Upright at 90 Degrees Treatment Plan Additional Recommended Referrals Psychiatry for anxiety Compensatory Strategies Recommendations Sitting Upright (90 deg), Liquids from Cup Equipment Cleaner Goals Pt will safely tolerate the leaast restrictive diet without s/sx aspiration to meet hydration/nutritional needs. Placement Recommendation After Discharge Equipment Cleaner Care Facility,Home with Home Health,Other
--- NOTE | 2022-06-23 16:48 | PM.PN.1 ---
Subjective Subjective Date Patient Seen: 06/23/22 Time Patient Seen: 16:48 Interval history: CXR showed persistent PTX. The pigtail tube was noted to be kinked where a wad of tape had been applied below the 3 way stop cock. After unkinking the tube an air leak is noted. Exam Vital Signs (past 8 hours): - 06/23/22 10:05 06/23/22 12:00 Temperature 97.9 F Pulse Rate 114 H 108 H Respiratory Rate 16 16 Blood Pressure 118/75 Pulse Oximetry 92 98 Oxygen Delivery Method Room Air Fraction of Inspired Oxygen 21 SaO2/FiO2 Ratio 452 Oxygen Delivery Method Room Air Oxygen Flow Rate 0 Narrative Exam Narrative: cachectic appearing Objective Labs Result Diagrams: 06/20/22 12:15 06/20/22 12:15 [facility] Medical History Asthma (02/02/11) Chronic abdominal pain Dorsalgia (02/02/11) Generalized anxiety disorder (02/02/11) Hypercalcemia Hyperlipidemia Obstructive sleep apnea syndrome (02/02/11) Pancreatitis (~2011) Scoliosis (~1982) Smoker Smoker unmotivated to quit (02/02/11) Smoking greater than 30 pack years Tinnitus (2005) Surgical History Anesthesia Status post cholecystectomy (2011) Family History Father No problems noted. Mother No problems noted. Brother No problems noted. Sister No problems noted. Family/Other No problems noted. Family/Other No problems noted. Social History household members: family and children Smoking Status: Current some day smoker alcohol intake: former Assessment & Plan Assessment and plan (1) Pneumothorax on right: Status: Acute Plan As long as tube is straight no tension pneumothorax should develop. If the tube continues to kink he will need a small bore chest tube Time Spent With Patient Critical Care time: I spent a total of [] minutes of critical care time on this patient's care today; this time is exclusive of procedural time.
[2022-06-23] MEDS: PANTOPRAZOLE DR 40 MG TABLET PO (21:47)
[2022-06-24] VITALS (8 sets, daily range): BP systolic 102–119; BP diastolic 62–70; PULSE 86–103; RESP 15–20; TEMP 36.4–37.1; O2SAT 95–98
[2022-06-24] MEDS: ALBUTEROL 2.5 MG/3 ML NEB (ADULT) INH ×2 (07:42→19:40)
[2022-06-24] MEDS: OXYCODONE IR 5 MG TABLET PO ×3 (08:48→22:56)
[2022-06-24] MEDS: NICOTINE 21 MG PATCH TOP (08:48)
[2022-06-24] MEDS: SODIUM CHLORIDE 0.9% FLUSH 10 ML IV (08:49)
[2022-06-24] MEDS: clonazePAM 0.5 MG TABLET 1 MG PO ×3 (08:49→22:57)
[2022-06-24] MEDS: ENOXAPARIN 40 MG/0.4 ML SYRINGE SUBCUT (08:49)
[2022-06-24] MEDS: VORICONAZOLE 200 MG TABLET PO ×2 (09:00→21:30)
--- NOTE | 2022-06-24 10:31 | DIET.CONS2 ---
Dietary Inpatient Consultation Note Admission Date: 06/12/2022 14:30 56y M at LOS day 12 due to unresolved pneumothorax with severe protein calorie malnutrition (BMI 15.3). Pt had normal MBSS yesterday indicating he is safe for dysphagia mechanical soft diet (due to edentulous), however, pt fairly adamant he only wants to drink chocolate ONS and has exclusively consumed them x12d. Pt reports to RD prior to February 2022 he would eat split pea soup and biscuits and gravy, but since February only accepts chocolate Boost Plus or chocolate Ensure Enlive. It has taken considerable trust building and motivational interviewing for pt to be willing to try a small cup of plain apple sauce (which he has yet to accomplish). Pt exhibits rigid behaviors including keeping his empty ONS containers in a specific order on his bedside table to track how many he has consumed, and perseverating on the numbers and usage directions on bottles. Pt does not exhibit indications for anorexia nervosa as he understands he is severely underweight and does verbally state he would like to gain muscle and weight to his UBW of 170#, however, pt does not seem to grasp importance of increased food acceptance and variety to accomplish this. Pt would benefit from assessment by psychiatry for ARFID (Avoidant/Restrictive Food Intake Disorder) According to the DSM-5, ARFID is diagnosed when: An eating or feeding disturbance (e.g., apparent lack of interest in eating or food; avoidance based on the sensory characteristics of food; concern about aversive consequences of eating) as manifested by persistent failure to meet appropriate nutritional and/or energy needs associated with one (or more) of the following: Significant weight loss (or failure to achieve expected weight gain or faltering growth in children). Significant nutritional deficiency. Dependence on enteral feeding or oral nutritional supplements. Marked interference with psychosocial functioning. The disturbance is not better explained by lack of available food or by an associated culturally sanctioned practice. The eating disturbance does not occur exclusively during the course of anorexia nervosa or bulimia nervosa, and there is no evidence of a disturbance in the way in which one?s body weight or shape is experienced. The eating disturbance is not attributable to a concurrent medical condition or not better explained by another mental disorder. When the eating disturbance occurs in the context of another condition or disorder, the severity of the eating disturbance exceeds that routinely associated with the condition or disorder and warrants additional clinical attention. Diet: 06/13/22 Breakfast Dysphagia Diet Diet Modifications: chop food, enlive tid Liquid consistency: Normal/Thin Food texture: Dysphagia Mechanical Soft Nutrition Percent Meal Consumed pt just want ensure every meal 06/23/22 12:00 Percent Meal Consumed ensure 06/22/22 17:00 Percent Meal Consumed only consuming Ensures 06/22/22 13:33 Electronically Signed by: Saira Casanova 06/24/22 10:31 Clinical Dietitian [address] [id number]
--- NOTE | 2022-06-24 11:04 | DI.RAD.S_ITS ---
PROCEDURE: XR CHEST 1V INDICATIONS: follow up PTX TECHNIQUE: One view of the chest was acquired. COMPARISON: [facility], CR, XR CHEST 1V, 06/23/2022, 11:44. FINDINGS: Decreased right pneumothorax. Right pigtail thoracostomy tube is similar. The mid and lower portions of the lung or well expanded with only a residual apical portion of the pneumothorax. Left pleural parenchymal scarring is similar. Left pleural space is clear. IMPRESSION: Decreased right pneumothorax now relegated to the apical lung. Dictated by: Bert Tom M.D. on 06/24/2022 at 10:58 Approved by: Bert Tom M.D. on 06/24/2022 at 11:00
--- NOTE | 2022-06-24 11:16 | PM.PN.1 ---
Subjective Subjective Date Patient Seen: 06/24/22 Interval history: Patient says his breathing is stable. Discussion was had about goals of care and if he is unable to be transferred he may want to consider going home on hospice. Patient will think about it all. Exam Vital Signs (past 8 hours): - 06/24/22 06:00 06/24/22 07:42 06/24/22 07:47 Temperature 97.6 F Pulse Rate 86 97 H 95 H Respiratory Rate 15 18 Blood Pressure 103/65 102/66 Pulse Oximetry 97 95 98 Oxygen Delivery Method Room Air Oxygen Flow Rate 0 0 Fraction of Inspired Oxygen 21 06/24/22 07:00 Temperature Pulse Rate Respiratory Rate Blood Pressure Pulse Oximetry Oxygen Delivery Method Room Air Oxygen Flow Rate Fraction of Inspired Oxygen Fraction of Inspired Oxygen 21 SaO2/FiO2 Ratio 452 Oxygen Delivery Method Room Air Oxygen Flow Rate 0 Narrative Exam Narrative: GEN: no acute distress, extremely thin male, cachectic HEENT: temporal wasting noted PULM: breath sounds present bilaterally, no wheezes or rales. Chest tube on right side. ABD: soft, nontender, nondistended, no organomegaly EXT: warm and well perfused with no edema NEURO: awake, alert, oriented, no focal deficits Objective Labs Result Diagrams: 06/20/22 12:15 06/20/22 12:15 [facility] Medical History Asthma (02/02/11) Chronic abdominal pain Dorsalgia (02/02/11) Generalized anxiety disorder (02/02/11) Hypercalcemia Hyperlipidemia Obstructive sleep apnea syndrome (02/02/11) Pancreatitis (~2011) Scoliosis (~1982) Smoker Smoker unmotivated to quit (02/02/11) Smoking greater than 30 pack years Tinnitus (2005) Surgical History Anesthesia Status post cholecystectomy (2011) Family History Father No problems noted. Mother No problems noted. Brother No problems noted. Sister No problems noted. Family/Other No problems noted. Family/Other No problems noted. Social History household members: family and children Smoking Status: Current some day smoker alcohol intake: former Assessment & Plan Assessment & Plan narrative: # bilateral lung infiltrates -CT chest showed left upper lobe cavitary lesion vs spiculated nodule which Dr. Henriquez cardiothoracic surg did not think was cancer but more likely infectious -Dr. Henriquez recommending transfer for ID consultation -[facility] ID recommended starting cefepime, vanc and voriconazole as well as further workup -ordered fungitell, galactomannin, cocci IgG/IgM, cryptococcal Ag and pending -quant gold negative, aspergillus negative, afb smear negative x3 now, afb cultures pending but will take 2 months. -yeast growing on sputum culture, unclear if contaminant, further workup requested to micro lab and is still pending -no longer requires airborne isolation with negative smears x3. -transfer pending to higher level of care, though no current beds available. # spontaneous tension pneumothorax, present on admission -etiology possibly related to RUL mass and recent biopsy in Mar 2022 -chest tube in place to suction, repeat CXR with improvement in PTX and resolution of mediastinal shift. -however persistent pneumothorax remains and air leak is noted -gen surg consulted to manage tube, recommending transfer for possible cardiothoracic surg management -failed chest tube to water seal on 06/18 with re-expansion. -now on water seal on 06/21 as no air leak present prior, currently tolerating and repeat CXR 06/22 with small pneumothorax. Patient feels breathing is improved. -appreciate general surgery consultation. -CXR 06/23 with interval worsening of PTX so chest tube placed back on suction # acute hypoxic resp failure, present on admission. resolved. -secondary to PTX, was satting 87% on room air and needed up to 4L NC -now weaned to room air with chest tube in place # Severe Acute on Chronic Protein Calorie Malnutrition r/t inadequate PO intake aeb BMI 15.3 (severe), MNA score 4 (malnourished) on admission, pt would benefit from artificial enteral nutrition but pt requests PO intervention, pt with poor fitting dentures limiting PO intake and uncharacterized lung infection with SOB limiting appetite and ability to eat. -The patient is at much higher risk for medical and surgical complications because of his malnutrition.? This increases the difficulty and complexity of medical and surgical interventions and increases the chances of poor outcomes such as morbidity and mortality. -providing three ONS Ensure Enlives daily providing 100% kcals and 120% protein needs. -providing Dysphagia Mechanical Soft High Protein/High kcal diet at half portions. -curriculum supervisor providing ONS reccs with coupons to continue tid ONS Ensure Plus until pt BMI >18. -speech consulted and recommended barium swallow which was completed on 06/23 and normal # tobacco dependence and COPD -nicotine patch ordered -albuterol PRN # anxiety -continue home klonopin # GOC -discussion was had on 06/24 about potential hospice if we can't get him transferred for VATS, patient thinking about it and what he would want to do as he is approaching 2 weeks in the hospital with no improvement in the pneumothorax Dispo: Pending if patient can pass water seal test to have chest tube removed, he may be able to f/u outpatient for further workup of his lung lesions. Time Spent With Patient Critical Care time: I spent a total of [] minutes of critical care time on this patient's care today; this time is exclusive of procedural time.
[2022-06-24] MEDS: PANTOPRAZOLE DR 40 MG TABLET PO (21:30)
[2022-06-25 00:13] VITALS: BP 109/67; PULSE 94; RESP 16; TEMP 36.6; O2SAT 98
--- NOTE | 2022-06-25 05:34 | PC.NURSE ---
Patient to be moved to different room. Explained the need to be moved and how he will be moved. Assured that all of his belonging will go with him. Report given to receiving nurse.
[2022-06-25 07:45] VITALS: BP 106/64; PULSE 98; PULSE 99; RESP 18; TEMP 36.8; O2SAT 96
[2022-06-25] MEDS: ALBUTEROL 2.5 MG/3 ML NEB (ADULT) INH ×2 (07:45→19:24)
--- NOTE | 2022-06-25 08:21 | CM.DPNOTE ---
DCP Note Patient moved from ICU to rm 211. According to conversation w/Dr Bran, patient still needs transfer for thoracic surgery after failing additional attempt at chest tube to water seal...unless patient decides to return home w/hospice services Patient is approaching 2 weeks in the hospital with no improvement in the pneumothorax. Dr Bran discussed goals of care with patient yesterday and patient has agreed to think about it Meanwhile, this VENDING SERVICE TECHNICIAN and women's ministry director are advocating for psychiatry consult with the goal of more thorough assessment of patient's mental health; is patient's mental health a potential barrier to understanding POC or making decisions about POC ? In addition- medication reconciliation and input on outpatient f/u See Switchgear Repairer Saira Casanova' prog note 12.8.22 for addtl. information CM team following closely as medical plan of care unfolds. NIMA Rogers
--- NOTE | 2022-06-25 08:40 | P.PN_ITS ---
Subjective Subjective Date Patient Seen: 06/25/22 Interval history: No complaints today. Exam Vital Signs (past 8 hours): Fraction of Inspired Oxygen 21 SaO2/FiO2 Ratio 461 Oxygen Delivery Method Room Air Oxygen Flow Rate 0 Narrative Exam Narrative: GEN: no acute distress, extremely thin male, cachectic HEENT: temporal wasting noted PULM: breath sounds present bilaterally, no wheezes or rales. Chest tube on right side. ABD: soft, nontender, nondistended, no organomegaly EXT: warm and well perfused with no edema NEURO: awake, alert, oriented, no focal deficits Objective Labs Result Diagrams: 06/20/22 12:15 06/20/22 12:15 [facility] Medical History Asthma (02/02/11) Chronic abdominal pain Dorsalgia (02/02/11) Generalized anxiety disorder (02/02/11) Hypercalcemia Hyperlipidemia Obstructive sleep apnea syndrome (02/02/11) Pancreatitis (~2011) Scoliosis (~1982) Smoker Smoker unmotivated to quit (02/02/11) Smoking greater than 30 pack years Tinnitus (2005) Surgical History Anesthesia Status post cholecystectomy (2011) Family History Father No problems noted. Mother No problems noted. Brother No problems noted. Sister No problems noted. Family/Other No problems noted. Family/Other No problems noted. Social History household members: family and children Smoking Status: Current some day smoker alcohol intake: former Assessment & Plan Assessment & Plan narrative: # bilateral lung infiltrates with concern for PNA vs lung cancer -CT chest showed left upper lobe cavitary lesion vs spiculated nodule which Dr. Henriquez cardiothoracic surg did not think was cancer but more likely infectious -however recent PET scan suggested cancer given uptake of right lung mass, possible nuria metastasis and possible right shoulder metastasis -Dr. Henriquez recommending transfer for ID consultation -[facility] ID recommended starting cefepime, vanc and voriconazole as well as further workup -ordered fungitell, galactomannin, cocci IgG/IgM, cryptococcal Ag and pending -quant gold negative, aspergillus negative, afb smear negative x3 now, afb cultures pending but will take 2 months. -yeast growing on sputum culture, unclear if contaminant, further workup r equested to micro lab and is still pending -no longer requires airborne isolation with negative smears x3. -transfer pending to higher level of care, though no current beds available. # spontaneous tension pneumothorax, present on admission -etiology possibly related to RUL mass and recent biopsy in Mar 2022 -chest tube in place to suction, repeat CXR with improvement in PTX and resolution of mediastinal shift. -however persistent pneumothorax remains and air leak is noted -gen surg consulted to manage tube, recommending transfer for possible cardiothoracic surg management -failed chest tube to water seal on 06/18 with re-expansion. -has now failed water seal attempts x3 and is back on suction -appreciate general surgery consultation. -attempting transfer for VATS and pleurodesis # acute hypoxic resp failure, present on admission. resolved. -secondary to PTX, was satting 87% on room air and needed up to 4L NC -now weaned to room air with chest tube in place # Severe Acute on Chronic Protein Calorie Malnutrition r/t inadequate PO intake aeb BMI 15.3 (severe), MNA score 4 (malnourished) on admission, pt would benefit from artificial enteral nutrition but pt requests PO intervention, pt with poor fitting dentures limiting PO intake and uncharacterized lung infection with SOB limiting appetite and ability to eat. -The patient is at much higher risk for medical and surgical complications because of his malnutrition.? This increases the difficulty and complexity of medical and surgical interventions and increases the chances of poor outcomes such as morbidity and mortality. -providing three ONS Ensure Enlives daily providing 100% kcals and 120% protein needs. -providing Dysphagia Mechanical Soft High Protein/High kcal diet at half portions. -top precipitator operator providing ONS reccs with coupons to continue tid ONS Ensure Plus until pt BMI >18. -speech consulted and recommended barium swallow which was completed on 06/23 and normal # tobacco dependence and COPD -nicotine patch ordered -albuterol PRN # anxiety -continue home klonopin Dispo: Pending transfer for cardiothoracic surgery for multiple failed attempts at chest tube removal. Time Spent With Patient Critical Care time: I spent a total of [] minutes of critical care time on this patient's care today; this time is exclusive of procedural time.
[2022-06-25] MEDS: NICOTINE 21 MG PATCH TOP (09:11)
[2022-06-25] MEDS: clonazePAM 0.5 MG TABLET 1 MG PO ×3 (09:11→23:09)
[2022-06-25] MEDS: OXYCODONE IR 5 MG TABLET PO ×3 (09:12→23:09)
[2022-06-25] MEDS: SODIUM CHLORIDE 0.9% FLUSH 10 ML IV ×2 (09:13→21:29)
[2022-06-25] MEDS: VORICONAZOLE 200 MG TABLET PO ×2 (09:13→21:29)
[2022-06-25] MEDS: ENOXAPARIN 40 MG/0.4 ML SYRINGE SUBCUT (09:14)
[2022-06-25 12:00] VITALS: BP 122/73; PULSE 99; RESP 16; TEMP 36.4; O2SAT 98
--- NOTE | 2022-06-25 14:29 | P.PN_ITS ---
Subjective Subjective Interval history: Doing fine today no specific questions or complaints. Exam Vital Signs (past 8 hours): - 06/25/22 07:45 06/25/22 07:45 06/25/22 12:00 Temperature 98.2 F 97.5 F L Pulse Rate 99 H 98 H 99 H Respiratory Rate 18 18 16 Blood Pressure 106/64 122/73 Pulse Oximetry 96 96 98 Oxygen Delivery Method Room Air Oxygen Flow Rate 0 0 Fraction of Inspired Oxygen 21 SaO2/FiO2 Ratio 461 Oxygen Delivery Method Room Air Oxygen Flow Rate 0 Narrative Exam Narrative: Awake alert pleasant lying down in bed cachexia unchanged. Chest tube is in place on the right chest the tube is not kinked. The dressing is intact. There is a persistent air leak. Objective Labs Result Diagrams: 06/20/22 12:15 06/20/22 12:15 Labs: Laboratory Results - last 24 hr 06/14/22 04:08 Ref Test (Refrig) [facility] Medical History Asthma (02/02/11) Chronic abdominal pain Dorsalgia (02/02/11) Generalized anxiety disorder (02/02/11) Hypercalcemia Hyperlipidemia Obstructive sleep apnea syndrome (02/02/11) Pancreatitis (~2011) Scoliosis (~1982) Smoker Smoker unmotivated to quit (02/02/11) Smoking greater than 30 pack years Tinnitus (2005) Surgical History Anesthesia Status post cholecystectomy (2011) Family History Father No problems noted. Mother No problems noted. Brother No problems noted. Sister No problems noted. Family/Other No problems noted. Family/Other No problems noted. Social History household members: family and children Smoking Status: Current some day smoker alcohol intake: former Assessment & Plan Assessment and plan (1) Pneumothorax on right: Status: Acute Assessment & Plan narrative: Will leave chest tube to wall suction today as there is a persistent air leak. Patient may benefit from switching out to a larger chest tube we need to try something else. Generally if he is going to be transferred I would try to do less here so that is the accepting facility can have the type of tube or do the type of procedure that is standard for them. I still recommend transfer I do not think that this pneumothorax is healing and consultation with a thoracic surgeon would be beneficial. I am skipping a chest x-ray for today and will leave it to the weekend coverage whether to order another. Dr. Lainez will be following this weekend Time Spent With Patient Critical Care time: I spent a total of [] minutes of critical care time on this patient's care today; this time is exclusive of procedural time.
[2022-06-25 18:33] VITALS: BP 111/70; PULSE 100; RESP 18; TEMP 37.2; O2SAT 97
--- NOTE | 2022-06-25 18:50 | PC.NURSE ---
Patient had two oxycodone today for pain and his clonezapam. He has a chest tube to 20mm of suction, no leaks noticed. He had minimal ss drainage in ct chamber. Dressing reenforced with tape. Patient is resting comfortably.
[2022-06-25 20:25] VITALS: BP 104/67; PULSE 105; RESP 16; TEMP 36.4; O2SAT 97
[2022-06-25] MEDS: PANTOPRAZOLE DR 40 MG TABLET PO (21:29)
[2022-06-26 03:59] VITALS: BP 115/69; PULSE 82; RESP 16; TEMP 36.1; O2SAT 98
--- NOTE | 2022-06-26 06:33 | PC.NURSE ---
Patient resting in bed this shift. chest tube pain controlled with percolone. Chest tube with no output. Patient has been A&O, calm and cooperative.
[2022-06-26] MEDS: ALBUTEROL 2.5 MG/3 ML NEB (ADULT) INH ×2 (07:35→19:44)
[2022-06-26 07:37] VITALS: PULSE 94; RESP 18; O2SAT 97
[2022-06-26] MEDS: NICOTINE 21 MG PATCH TOP (09:21)
[2022-06-26] MEDS: OXYCODONE IR 5 MG TABLET PO ×3 (09:21→23:06)
[2022-06-26] MEDS: VORICONAZOLE 200 MG TABLET PO ×2 (09:21→22:12)
[2022-06-26] MEDS: ENOXAPARIN 40 MG/0.4 ML SYRINGE SUBCUT (09:22)
[2022-06-26] MEDS: SODIUM CHLORIDE 0.9% FLUSH 10 ML IV ×2 (09:22→22:12)
[2022-06-26] MEDS: clonazePAM 0.5 MG TABLET 1 MG PO ×3 (09:22→23:05)
--- NOTE | 2022-06-26 11:30 | PC.NURSE ---
Addendum entered by Izzy Paz R.N. 06/26/22 18:33: Patient given his oxycodone and klonipin around 1500. He has voided per urinal and he is content. Drinking three of his ensures and taking bites of applesauce. Chest tube is in place at 20mm of suction and putting out minimal drainage. Tube dressing is secure and wnl. Original Note: Assess- Patient is alert and oriented, soft spoken and pleasant with care. Given oxycodone and clonipin for comfort and anxiety. He is using the urinal to void and put out 125cc of yellow urine. Resting comfortably.
[2022-06-26 12:00] VITALS: BP 117/52; PULSE 101; RESP 18; TEMP 36.7; O2SAT 97
--- NOTE | 2022-06-26 13:41 | P.PN_ITS ---
Subjective Subjective Date Patient Seen: 06/26/22 Time Patient Seen: 13:41 Interval history: No new complaints. Exam Vital Signs (past 8 hours): - 06/26/22 07:37 06/26/22 12:00 Temperature 98.0 F Pulse Rate 94 H 101 H Respiratory Rate 18 18 Blood Pressure 117/52 L Pulse Oximetry 97 97 Oxygen Delivery Method Room Air Oxygen Flow Rate 0 Fraction of Inspired Oxygen 98 SaO2/FiO2 Ratio 461 Oxygen Delivery Method Room Air Oxygen Flow Rate 0 Narrative Exam Narrative: Persistent air leak Objective Labs Result Diagrams: 06/20/22 12:15 06/20/22 12:15 [facility] Medical History Asthma (02/02/11) Chronic abdominal pain Dorsalgia (02/02/11) Generalized anxiety disorder (02/02/11) Hypercalcemia Hyperlipidemia Obstructive sleep apnea syndrome (02/02/11) Pancreatitis (~2011) Scoliosis (~1982) Smoker Smoker unmotivated to quit (02/02/11) Smoking greater than 30 pack years Tinnitus (2005) Surgical History Anesthesia Status post cholecystectomy (2011) Family History Father No problems noted. Mother No problems noted. Brother No problems noted. Sister No problems noted. Family/Other No problems noted. Family/Other No problems noted. Social History household members: family and children Smoking Status: Current some day smoker alcohol intake: former Assessment & Plan Assessment and plan (1) Pneumothorax on right: Status: Acute Plan Will contact Dr. Henriquez to see if he has any suggestions about getting [facility] over to [place] sooner. Time Spent With Patient Critical Care time: I spent a total of [] minutes of critical care time on this patient's care today; this time is exclusive of procedural time.
--- NOTE | 2022-06-26 16:08 | PM.PN.1 ---
Subjective Subjective Interval history: 56-year-old gentleman with right upper lobe mass suspicious for malignancy but negative per biopsy, pancreatitis, alcohol dependence in remission times 10 years, chronic tobacco dependence, COPD, and anxiety who was admitted on June 12 with increasing shortness of breath and spontaneous right-sided tension pneumothorax. He has been re-expanded and failed water-seal on 3 occasions. Cardiothoracic surgery has been contacted with initial recommendations for treatment of potential infectious etiology. This has been accomplished and further recommendations are pending. Patient reports he is not eating solid foods despite being aware that he passed his swallow evaluation. He is drinking multiple ensures. He denies any significant shortness of breath Exam Vital Signs (past 8 hours): - 06/25/22 18:33 06/25/22 19:26 Temperature 99.0 F Pulse Rate 100 H Respiratory Rate 18 Blood Pressure 111/70 Pulse Oximetry 97 Oxygen Delivery Method Room Air Oxygen Flow Rate 0 Fraction of Inspired Oxygen 98 Fraction of Inspired Oxygen 98 SaO2/FiO2 Ratio 461 Oxygen Delivery Method Room Air Oxygen Flow Rate 0 Narrative Exam Narrative: GEN: Cachectic middle-aged male, appears chronically ill, Alert and oriented x 3, NAD HEENT:NC, Face symmetric, severe bitemporal wasting, prominent cheek bones CHEST: Respiratory excursions symmetric, diminished on the right, clear on the left CV: RRR, no M/R/G ABD: Soft, NT/ND, BT present in all 4 quadrants, no organomegaly or masses EXTR: warm, well perfused, no C/C/E SKIN: warm and dry, no rash NEURO: Alert and oriented x 3, nonfocal Objective Labs Result Diagrams: 06/20/22 12:15 06/20/22 12:15 Labs: Laboratory Results - last 24 hr 06/14/22 04:08 Ref Test (Refrig) [facility] Medical History Asthma (02/02/11) Chronic abdominal pain Dorsalgia (02/02/11) Generalized anxiety disorder (02/02/11) Hypercalcemia Hyperlipidemia Obstructive sleep apnea syndrome (02/02/11) Pancreatitis (~2011) Scoliosis (~1982) Smoker Smoker unmotivated to quit (02/02/11) Smoking greater than 30 pack years Tinnitus (2005) Surgical History Anesthesia Status post cholecystectomy (2011) Family History Father No problems noted. Mother No problems noted. Brother No problems noted. Sister No problems noted. Family/Other No problems noted. Family/Other No problems noted. Social History household members: family and children Smoking Status: Current some day smoker alcohol intake: former Assessment & Plan Assessment & Plan narrative: 1. Pneumonia CXR showed a OZIEL opacity. CT showed concern for PNA in the RML as well. Was treated w/cefepime/azithro/voriconazole per ID recs. Now on voriconazole alone. Cultures positive only for Valeria albicans. 2. Right sided pneumothorax (tension ptx on admit) Appreciate gen surg mgmt. PTX has been somewhat resistant to treatment and has failed water seal x 3. Transfer requested for consideration of VATS/pleurodesis. 3. RUL mass w/mediastinal lymphadenopathy Chest CT 02/05 revewed areas of focal consolidation w/largest measuring 3x1.5cm felt to be neoplasm vs scarring. PET scan done 03/08 revealed RUL abnormal mass consistent w/primary lung cancer and right hilar adenopathy concerning for nuria metastases as well as increased uptake in the right anterior shoulder coracoid process (rec'd MRI w/ and w/o contract to evaluate). 4. Severe acute/chronic PCM BMI 15.3. Pt has ill-fitting dentures which limits po intake. He declined enteral nutrition. Continues Ensure, mech soft/dysphagia high protein/high calorie diet. Normal barium swallow. 5. COPD No exacerbation currently. 6. Tobacco dependence Nicotine patch PRN 7. Anxiety Continue clonazepam. 8. Normocytic anemia Stable 9. Thrombocytosis Likely an acute phase reactant. Stable Resolved issues: Acute hypoxic resp failure-required up to 4lpm for sats 87%RA, now off O2. Code status Full Prophy On Lovenox Dispo: Pending transfer for cardiothoracic surgery for multiple failed attempts at chest tube removal. Time Spent With Patient Critical Care time: I spent a total of [] minutes of critical care time on this patient's care today; this time is exclusive of procedural time.
[2022-06-26 18:00] VITALS: BP 110/69; PULSE 109; RESP 18; TEMP 36.4; O2SAT 97
[2022-06-26] MEDS: PANTOPRAZOLE DR 40 MG TABLET PO (22:11)
[2022-06-27] VITALS: BP 95/64; PULSE 102; RESP 16; TEMP 36.6; O2SAT 97
--- NOTE | 2022-06-27 05:37 | PM.PN.1 ---
Subjective Subjective Date Patient Seen: 06/27/22 Time Patient Seen: 05:30 Interval history: He has no new complaints. No shortness of breath. Exam Vital Signs (past 8 hours): - 06/27/22 00:00 Temperature 98 F Pulse Rate 102 H Respiratory Rate 16 Blood Pressure 95/64 Pulse Oximetry 97 Fraction of Inspired Oxygen 98 SaO2/FiO2 Ratio 461 Oxygen Delivery Method Room Air Oxygen Flow Rate 0 Narrative Exam Narrative: GEN: no acute distress, cachectic HEENT: temporal wasting noted PULM: breath sounds present bilaterally, no wheezes or rales. Chest tube on right side. ABD: soft, nontender, nondistended, no organomegaly EXT: warm and well perfused with no edema NEURO: awake, alert Objective Labs Result Diagrams: 06/20/22 12:15 06/20/22 12:15 [facility] Medical History Asthma (02/02/11) Chronic abdominal pain Dorsalgia (02/02/11) Generalized anxiety disorder (02/02/11) Hypercalcemia Hyperlipidemia Obstructive sleep apnea syndrome (02/02/11) Pancreatitis (~2011) Scoliosis (~1982) Smoker Smoker unmotivated to quit (02/02/11) Smoking greater than 30 pack years Tinnitus (2005) Surgical History Anesthesia Status post cholecystectomy (2011) Family History Father No problems noted. Mother No problems noted. Brother No problems noted. Sister No problems noted. Family/Other No problems noted. Family/Other No problems noted. Social History household members: family and children Smoking Status: Current some day smoker alcohol intake: former Assessment & Plan Assessment & Plan narrative: 1. Pneumonia -chest xray with left opacity and CT with pna noted as well -initially treated with cefepime/azithrom/voriconazole -now on voriconazole alone -TB workup negative with afb x3, fungal studies also negative, cocci negative -sputum culture showed martha albicans 2. Right sided pneumothorax -failed water seal -general surgery managing -plan transfer for thoracic surgery evaluation Appreciate gen surg mgmt. PTX has been somewhat resistant to treatment and has failed water seal x 3. Transfer requested for consideration of VATS/pleurodesis. 3. RUL mass w/mediastinal lymphadenopathy -Chest CT 02/05 areas of focal consolidation w/largest measuring 3x1.5cm felt to be neoplasm vs scarring. PET scan done 03/08 revealed RUL abnormal mass consistent w/primary lung cancer and right hilar adenopathy concerning for nuria metastases as well as increased uptake in the right anterior shoulder coracoid process. March biopsy was done which showed granuloma 4. Severe acute/chronic PCM -BMI 15.3. Pt has ill-fitting dentures which limits po intake. He declined enteral nutrition. Continues Ensure, mech soft/dysphagia high protein/high calorie diet. Normal barium swallow. 5. Tobacco dependence Nicotine patch PRN 6. Anxiety - clonazepam. Resolved issues: Acute hypoxic resp failure-required up to 4lpm for sats 87%RA, now off O2. Dispo: Pending transfer for cardiothoracic surgery for multiple failed attempts at chest tube removal. Time Spent With Patient Critical Care time: I spent a total of [] minutes of critical care time on this patient's care today; this time is exclusive of procedural time.
[2022-06-27 05:50] VITALS: BP 110/72; PULSE 68; RESP 16; TEMP 36.6; O2SAT 97
[2022-06-27] MEDS: ALBUTEROL 2.5 MG/3 ML NEB (ADULT) INH ×2 (08:37→18:10)
--- NOTE | 2022-06-27 11:40 | PM.PN.1 ---
Subjective Subjective Date Patient Seen: 06/27/22 Time Patient Seen: 11:40 Interval history: No significant changes since yesterday. Exam Vital Signs (past 8 hours): - 06/27/22 05:50 Temperature 97.8 F Pulse Rate 68 Respiratory Rate 16 Blood Pressure 110/72 Pulse Oximetry 97 Fraction of Inspired Oxygen 98 SaO2/FiO2 Ratio 461 Oxygen Delivery Method Room Air Oxygen Flow Rate 0 Narrative Exam Narrative: Persistent air leak Objective Labs Result Diagrams: 06/20/22 12:15 06/20/22 12:15 [facility] Medical History Asthma (02/02/11) Chronic abdominal pain Dorsalgia (02/02/11) Generalized anxiety disorder (02/02/11) Hypercalcemia Hyperlipidemia Obstructive sleep apnea syndrome (02/02/11) Pancreatitis (~2011) Scoliosis (~1982) Smoker Smoker unmotivated to quit (02/02/11) Smoking greater than 30 pack years Tinnitus (2005) Surgical History Anesthesia Status post cholecystectomy (2011) Family History Father No problems noted. Mother No problems noted. Brother No problems noted. Sister No problems noted. Family/Other No problems noted. Family/Other No problems noted. 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 He seems concerned about the risks of complications from the chest tube and is worried that the chest tube could cause a problem given the proximity of the lung mass. I re-assured him the risks would be low. He would like to consider it for a day and possibly have the tube placed tomorrow. Time Spent With Patient Critical Care time: I spent a total of [] minutes of critical care time on this patient's care today; this time is exclusive of procedural time.
[2022-06-27 12:00] VITALS: BP 109/74; PULSE 87; RESP 14; TEMP 36.4; O2SAT 97
[2022-06-27] MEDS: NICOTINE 21 MG PATCH TOP (12:19)
[2022-06-27] MEDS: VORICONAZOLE 200 MG TABLET PO ×2 (12:20→21:44)
[2022-06-27] MEDS: clonazePAM 0.5 MG TABLET 1 MG PO ×3 (12:20→23:20)
[2022-06-27] MEDS: OXYCODONE IR 5 MG TABLET PO ×3 (12:21→23:20)
[2022-06-27] MEDS: SENNOSIDES 8.6 MG TABLET PO (12:31)
--- NOTE | 2022-06-27 14:22 | CM.DPC ---
DCP Cont: Per Surgeon, may attempt larger chest tube and maneuver towards attempting seal but still recommending hospital transfer. MD attempted Goals of Care discussion but pt thinking about it and wanting to pursue tx at this time and difficult to get pt to focus on the medical needs and his condition. Psych Consult was considered as pt seems to have some perseveration and feeding/intake issues but MD worried that Psych Consult may be a barrier to acceptance for hospital transfer. Per chemicals distiller, pt now on the [facility] waitlist as they are now starting to have some beds becoming available. Sofi Cunningham Surgeon had accepted but no beds were available and the Surgeon was on vacation but returning tomorrow so potential for [facility] acceptance. SW met briefly bedside with pt and explained role and discussed the current tentative plan if pt remains and discharges home with new [facility] referral already made and currently pt agreeable. SW updated [facility] that pt remains admitted and unclear timeline for discharge. Plan: SW to follow closely for ongoing attempts at hospital transfer for higher level of care needs and if pt remains finalizing [facility] referral with likely need for their higher acuity Telehealth Program. F2F previously completed and referral to [facility] already made. NIMA Kitchen
[2022-06-27 18:00] VITALS: BP 108/65; PULSE 102; RESP 16; TEMP 36.7; O2SAT 100
[2022-06-27 18:16] VITALS: PULSE 96; RESP 28; O2SAT 98
[2022-06-27] MEDS: PANTOPRAZOLE DR 40 MG TABLET PO (21:44)
--- NOTE | 2022-06-28 | DI.CT.S_ITS ---
PROCEDURE: CT ABDOMEN PELVIS W CON INDICATIONS: sob TECHNIQUE: After the administration of intravenous contrast, axial sections acquired from the lung bases to the pubic symphysis. Coronal and sagittal reformats were performed. For radiation dose reduction, the following was used: automated exposure control, adjustment of mA and/or kV according to patient size. COMPARISON: [facility], CR, XR CHEST 1V, 06/24/2022, 11:10. [facility], CT, CT CHEST W CON, 06/13/2022, 13:31. FINDINGS: Image quality: Excellent. Lung bases: Moderately large basilar right pneumothorax. Question mild mediastinal shift to the left. Heart: Normal heart size. ABDOMEN: Liver: No focally regions. Normal enhancement pattern. Gallbladder: Surgically absent. Biliary ducts: Unremarkable. Pancreas: Unremarkable. Spleen: Unremarkable. Adrenal Glands: Unremarkable. Kidneys and Ureters: Unremarkable. Stomach and Bowel: Bowel is difficult to evaluate secondary to lack of small bowel contrast and lack of intra-abdominal fat. No gross lesions. Large fecal load present. Peritoneum: No abnormal intraperitoneal fluid. No free air. Ventral Wall: No hernias. Abdominal Nodes: Paucity of abdominal fat and lack of bowel contrast in the small bowel measured quite difficult to evaluate for the presence or absence of retroperitoneal adenopathy. No retroperitoneal or mesenteric adenopathy by size criteria. Vessels: Aorta and inferior vena cava are normal in size. PELVIS: Pelvic Organs: Enlarged prostate. Bladder: Unremarkable. Pelvic Nodes: No enlarged lymph nodes. Miscellaneous: No hernias are seen. Bones: Lumbar degenerative change. No lytic or blastic bony lesions. No compression fractures. IMPRESSION: 1. Moderately large right basilar pneumothorax. Cannot exclude an element of tension. 2. Lack of small bowel contrast and lack of intra-abdominal fat makes it difficult to exclude retroperitoneal adenopathy and make it difficult to evaluate the small bowel. 3. Large fecal load. 4. Prostate enlargement. Comment: Findings were discussed with Dr. Lowe on 06.28.22 at 1250 hours Dictated by: Mikey Moraes M.D. on 06/28/2022 at 13:06 Approved by: Mikey Moraes M.D. on 06/28/2022 at 13:16
[2022-06-28 00:44] VITALS: BP 106/66; PULSE 91; RESP 19; TEMP 36.5; O2SAT 98
--- NOTE | 2022-06-28 06:44 | PM.PN.1 ---
Subjective Subjective Date Patient Seen: 06/28/22 Time Patient Seen: 06:00 Interval history: He has some mild pain at the site of the chest tube. Otherwise no new concerns. Exam Vital Signs (past 8 hours): - 06/28/22 00:44 Temperature 97.7 F Pulse Rate 91 H Respiratory Rate 19 Blood Pressure 106/66 Pulse Oximetry 98 Fraction of Inspired Oxygen 98 SaO2/FiO2 Ratio 461 Oxygen Delivery Method Room Air Oxygen Flow Rate 0 Narrative Exam Narrative: GEN: no acute distress, cachectic HEENT: temporal wasting noted PULM: breath sounds present bilaterally, no wheezes or rales. Chest tube on right side. ABD: soft, nontender, nondistended, no organomegaly EXT: warm and well perfused with no edema NEURO: awake, alert Objective Labs Result Diagrams: 06/20/22 12:15 06/20/22 12:15 [facility] Medical History Asthma (02/02/11) Chronic abdominal pain Dorsalgia (02/02/11) Generalized anxiety disorder (02/02/11) Hypercalcemia Hyperlipidemia Obstructive sleep apnea syndrome (02/02/11) Pancreatitis (~2011) Scoliosis (~1982) Smoker Smoker unmotivated to quit (02/02/11) Smoking greater than 30 pack years Tinnitus (2005) Surgical History Anesthesia Status post cholecystectomy (2011) Family History Father No problems noted. Mother No problems noted. Brother No problems noted. Sister No problems noted. Family/Other No problems noted. Family/Other No problems noted. Social History household members: family and children Smoking Status: Current some day smoker alcohol intake: former Assessment & Plan Assessment & Plan narrative: 1. Pneumonia -chest xray with left opacity and CT with pna noted as well -initially treated with cefepime/azithrom/voriconazole -now on voriconazole alone -TB workup negative with afb x3, fungal studies also negative, cocci negative -sputum culture showed martha albicans 2. Right sided pneumothorax -failed water seal -general surgery managing -plan transfer for thoracic surgery evaluation -appreciate gen surg mgmt. PTX has been somewhat resistant to treatment and has failed water seal x 3. Transfer requested for consideration of VATS/pleurodesis. Plan possibly on 06/28 for placement of additional chest tube to help fully reexpand the lung 3. RUL mass w/mediastinal lymphadenopathy -Chest CT 02/05 areas of focal consolidation w/largest measuring 3x1.5cm felt to be neoplasm vs scarring. PET scan done 03/08 revealed RUL abnormal mass consistent w/primary lung cancer and right hilar adenopathy concerning for nuria metastases as well as increased uptake in the right anterior shoulder coracoid process. March biopsy was done which showed granuloma 4. Severe acute/chronic PCM -BMI 15.3. Pt has ill-fitting dentures which limits po intake. He declined enteral nutrition. Continues Ensure, mech soft/dysphagia high protein/high calorie diet. Normal barium swallow. 5. Tobacco dependence Nicotine patch PRN 6. Anxiety - clonazepam. Resolved issues: Acute hypoxic resp failure-required up to 4lpm for sats 87%RA, now off O2. Dispo: Pending transfer for cardiothoracic surgery for multiple failed attempts at chest tube removal. Time Spent With Patient Critical Care time: I spent a total of [] minutes of critical care time on this patient's care today; this time is exclusive of procedural time.
[2022-06-28 06:51] VITALS: BP 105/66; PULSE 82; RESP 19; TEMP 36.7; O2SAT 98
[2022-06-28] MEDS: OXYCODONE IR 5 MG TABLET PO ×3 (08:13→22:19)
[2022-06-28] MEDS: clonazePAM 0.5 MG TABLET 1 MG PO ×3 (08:13→21:52)
[2022-06-28] MEDS: NICOTINE 21 MG PATCH TOP (08:15)
[2022-06-28] MEDS: VORICONAZOLE 200 MG TABLET PO ×2 (08:15→21:05)
[2022-06-28 09:06] VITALS: BP 99/58; PULSE 89; RESP 16; TEMP 37.1; O2SAT 98
[2022-06-28] MEDS: ALBUTEROL 2.5 MG/3 ML NEB (ADULT) INH ×2 (09:08→19:33)
[2022-06-28 09:13] VITALS: PULSE 96; RESP 24; O2SAT 96
--- NOTE | 2022-06-28 12:37 | CM.DPNOTE ---
Discharge Planning Note: Patient's chest tube is still to wall suction due to incomplete water seal. Transfer is still being attempted for thoracic surgery, charge nurse working on. He is currently down in [place]. Plan: Continue to follow for needs, patient has been here 17 days or more. [facility] referral done. Follow up as needed. Magda Duggan RN/DCP
--- NOTE | 2022-06-28 12:46 | DI.RAD.S_ITS ---
PROCEDURE: XR CHEST 1V INDICATIONS: assess pneumothorax TECHNIQUE: One view of the chest was acquired. COMPARISON: [facility], , XR CHEST 1V, 06/24/2022, 11:10. FINDINGS: Surgical changes and devices: Right-sided chest tube is again seen. Lungs and pleura: Persistent pneumothorax in lower right upper lung field is again seen not significantly changed in size and appearance from previous study. Left a pickle opacities are unchanged. Mediastinum: Mediastinal contours appear normal. Heart size is normal. Bones and chest wall: No suspicious bony lesions. Overlying soft tissues appear unremarkable. IMPRESSION: Stable appearing small to moderate size right upper lung field pneumothorax. No left-sided pneumothorax. Dictated by: Romaine Pond M.D. on 06/28/2022 at 13:14 Approved by: Romaine Pond M.D. on 06/28/2022 at 13:15
--- NOTE | 2022-06-28 14:28 | P.PN_ITS ---
Subjective Subjective Date Patient Seen: 06/28/22 Interval history: No changes since yesterday. Exam Vital Signs (past 8 hours): - 06/28/22 06:51 06/28/22 09:13 06/28/22 09:06 Temperature 98.1 F 98.8 F Pulse Rate 82 96 H 89 Respiratory Rate 19 24 16 Blood Pressure 105/66 99/58 L Pulse Oximetry 98 96 98 Oxygen Delivery Method Room Air Fraction of Inspired Oxygen 98 SaO2/FiO2 Ratio 461 Oxygen Delivery Method Room Air Oxygen Flow Rate 0 Narrative Exam Narrative: Persistent air leak Objective Labs Result Diagrams: 06/20/22 12:15 06/20/22 12:15 [facility] Medical History Asthma (02/02/11) Chronic abdominal pain Dorsalgia (02/02/11) Generalized anxiety disorder (02/02/11) Hypercalcemia Hyperlipidemia Obstructive sleep apnea syndrome (02/02/11) Pancreatitis (~2011) Scoliosis (~1982) Smoker Smoker unmotivated to quit (02/02/11) Smoking greater than 30 pack years Tinnitus (2005) Surgical History Anesthesia Status post cholecystectomy (2011) Family History Father No problems noted. Mother No problems noted. Brother No problems noted. Sister No problems noted. Family/Other No problems noted. Family/Other No problems noted. Social History household members: family and children Smoking Status: Current some day smoker alcohol intake: former Assessment & Plan Assessment and plan (1) Pneumothorax on right: Status: Acute Plan We discussed his condition at length. Mega has had a hard time comprehending what exactly is causing his condition. He was under the impression that the existing pigtail catheter is going into the lung mass. I explained that the pigtail is in the pleural cavity, outside the lung, and not in the mass. I re- iterated my opinion to him that he may benefit from a small bore Time Spent With Patient Critical Care time: I spent a total of [] minutes of critical care time on this patient's care today; this time is exclusive of procedural time.
[2022-06-28 15:16] VITALS: BP 101/70; PULSE 91; RESP 16; TEMP 37.4; O2SAT 99
[2022-06-28 20:40] VITALS: BP 116/74; PULSE 92; RESP 18; TEMP 37.4; O2SAT 98
[2022-06-28] MEDS: PANTOPRAZOLE DR 40 MG TABLET PO (21:05)
[2022-06-28] MEDS: SODIUM CHLORIDE 0.9% FLUSH 10 ML IV (21:50)
--- NOTE | 2022-06-28 22:03 | PM.DS.1 ---
History of Present Illness History of Present Illness Chief complaint: SOB/Chest pain Narrative: Per admitting provider Mega Wei is a 56yo M with PMH of right upper lung mass s/p biopsy in Mar 2022 which was not cancerous, pancreatitis, previous alcoholism sober 10 years, chronic tobacco dependence, COPD, and anxiety who presents with 2 days of progressive dyspnea and found to have right-sided pneumothorax. Patient notes he developed shortness of breath over [place] which progressed to gasping for air with any exertion. He lives at home with his mother and EMS was called where he was found to be 87% on room air. Patient says he has never had a pneumothorax before. Denies NV, chest pain, abd pain, or upper resp symptoms such as cough, rhinorrhea, or congestion. Patient is extremely thin and says he has been losing lots of weight due to issues with his dentures and unable to eat foods well. He says he was 134lbs a month ago and is now 127lbs. He has not had his chewing issues addressed and continues to not have adequate po intake because of this. In the ED, CXR confirmed mod sized right-sided pneumothorax with mediastinal shift suggestive of tension pneumo. An emergent chest tube was placed by the ED. Also ill-defined left upper lobe density seen. He was on 4L O2 which has now been weaned off since coming to the floor. Chest tube now on suction with small air-leak. Discharge Providers Provider Date of admission: 06/12/22 14:30 Discharge Date: 06/28/22 Primary care physician: Mikey Johns MD Consults: 06/12/22 14:00 Consult to General Surgery Stat Comment: Consulting Provider: Martin Arce Reason for consultation: pneumothorax, chest tube Has provider been notified: Yes 06/12/22 15:25 Consult to Dietitian, Adult Routine Comment: Reason For Exam: malnurished/emanciated 06/12/22 15:34 Consult to Dietitian, Adult Routine Comment: Reason For Exam: malnurished/emancieated 06/21/22 16:48 Consult to Speech Therapy Evaluate & Treat Comment: Physician Instructions: Evaluate and treat Discharge provider: Dixon Webb MD Summary Hospital Course Discharge Diagnosis: 1. Pneumonia 2. Right lung pneumothorax 3. Right upper lobe lung mass 4. Severe Protein calorie malnutrition 5. Tobacco dependence 6. Anxiety Hospital Course: Mr. Wei presented to the hospital with respiratory failure. He has a smoking history and was found to have a right sided pneumothorax for which he underwent chest tube placement. He was ultimately in our hospital awaiting transfer for over two weeks due to inability to remove the chest tube. He had at least three episodes where he was trialed on water seal, and had reaccumulation of his pneumothorax. He remained on water seal, he had persistent air leak. Prior to presentation to this hospital he had been seen at [facility], and followed by Dr. Henriquez for known RUL mass. This was biopsied in March and ultimately read as negative for cancer. He is very cachectic and cancer remained a concern. CT abdomen did not show any evidence of this however He was found to have infiltrates on lung imaging. Etiology was not clear. He had 3 afb smears that ultimately resulted as negative. AFB cultures pending. Cocci, crypto, galactomannan, were negative. Respiratory PCR panel, flu, COVID were negative. Cultures were negative in blood and urine. Sputum culture grew back martha albicans, unclear if true pathogen. He was initially started on broad spectrum antibiotics but antibiotics were ultimately stopped, and he was continued on voriconazole only. He had dietary consult who noted he was an extremely particular eater, and very hesitant to stray from routine, and very fixated on particularities. Psych consult was pending but ultimately not done prior to transfer. He was offered PEG feeding or TPN but declined. He was transferred to [facility] for evaluation by thoracic surgery for his persistent pneumothorax and consideration of further workup with ID or pulmonology for his abnormal chest imaging. Exam Vital Signs (past 8 hours): - 06/28/22 19:36 06/28/22 20:40 Temperature 99.3 F Pulse Rate 92 H Respiratory Rate 18 Blood Pressure 116/74 Pulse Oximetry 98 Oxygen Delivery Method Room Air Fraction of Inspired Oxygen 98 SaO2/FiO2 Ratio 461 Oxygen Delivery Method Room Air Oxygen Flow Rate 0 Narrative Exam Narrative: GEN: no acute distress, cachectic HEENT: temporal wasting noted PULM: breath sounds present bilaterally, no wheezes or rales. Chest tube on right side. ABD: soft, nontender, nondistended, no organomegaly EXT: warm and well perfused with no edema NEURO: awake, alert Objective Labs Result Diagrams: 06/20/22 12:15 12/04/22 12:15 [facility] Medical History Asthma (02/02/11) Chronic abdominal pain Dorsalgia (02/02/11) Generalized anxiety disorder (02/02/11) Hypercalcemia Hyperlipidemia Obstructive sleep apnea syndrome (02/02/11) Pancreatitis (~2011) Scoliosis (~1982) Smoker Smoker unmotivated to quit (02/02/11) Smoking greater than 30 pack years Tinnitus (2005) Surgical History Anesthesia Status post cholecystectomy (2011) Family History Father No problems noted. Mother No problems noted. Brother No problems noted. Sister No problems noted. Family/Other No problems noted. Family/Other No problems noted. Social History household members: family and children Smoking Status: Current some day smoker alcohol intake: former Discharge Plan Discharge Plan Patient Disposition: [facility] Other facility: [facility] Diet/Activity/Treatments Diet: Regular Liquid consistency: Normal/Thin Food texture: Blenderized or pureed Diet comment: Dyspahgia diet Visit Report/Discharge Packet Instructions: Pneumothorax, DI for Chest Tube Insertion Discharge Data Primary Care Provider: Mikey Johns
--- NOTE | 2022-06-28 22:59 | PC.NURSE ---
Patient transfered to [facility]. Patient left via EMS at 2230. Report called to REE Luis at [facility] at 2240. Patient medicated with Oxycodone and clanazepam prior to transport.
== END 2022-06-28 22:30 | disposition short-term general hospital (02) | DRG 199 ==
LOC: ED 13:57 → AC 14:31 → ICU 06-13 17:24 → AC 06-25 05:57
PROVIDERS: Internal Medicine; Admitting Provider Student in an Organized Health Care Education/Training Program; Emergency Provider Emergency Medicine; PCP Family Medicine; Referring Provider Emergency Medicine; Visit Provider Internal Medicine
DX: J93.0 Spontaneous tension pneumothorax (principal); E43 Unspecified severe protein-calorie malnutrition; J96.01 Acute respiratory failure with hypoxia; J18.9 Pneumonia, unspecified organism; Z68.1 Body mass index [BMI] 19.9 or less, adult; J44.9 Chronic obstructive pulmonary disease, unspecified; R91.8 Other nonspecific abnormal finding of lung field; R59.0 Localized enlarged lymph nodes; F41.9 Anxiety disorder, unspecified; F17.200 Nicotine dependence, unspecified, uncomplicated; Z20.822 Contact with and (suspected) exposure to COVID-19
CPT/HCPCS: 0241U; 32551; 36415; 36592; 71045; 71260; 74177; 74230; 80048; 80053; 80202; 81001; 81003; 83605; 83735; 83880; 84145; 84484; 85025; 85027; 85610; 86480; 86635; 87070; 87077; 87116; 87205; 87206; 87633; 87797; 92611; 93005; 94150; 94640; 94760; 94762; 96374; 96375; 99152; 99231; 99232; 99285; 99291; 99406; J0692; J0696; J1170; J1650; J2250; J2405; J3010; J7613; Q9967

== ENCOUNTER → 2023-06-22 11:59 | Outpatient (CLI) | payer OTHER, MEDICAID, SELFPAY ==
[2023-05-02 15:20] VITALS: BMI 15.3
--- NOTE | 2023-06-22 12:00 | DI.CT.S_ITS ---
PROCEDURE: CT CHEST WO CON INDICATIONS: lung mass and chronic smoker TECHNIQUE: Noncontrast 5 mm thick sections acquired from the pulmonary apices to the posterior costophrenic angles. 1 mm lung window, 5 mm thick coronal and sagittal and 7 mm axial MIP reformats were then acquired. For radiation dose reduction, the following was used: automated exposure control, adjustment of mA and/or kV according to patient size. COMPARISON: [facility], CT, CT CHEST W CON, 06/13/2022, 13:31. FINDINGS: Image quality: Diagnostic. Lungs and pleura: There is commonly no pneumothorax. A spiculated right upper lobe lung mass on previous 97/3 and current image 67/3 has increased in size. It previously measured 1.7 x 1.4 cm. It currently measures 1.9 x 1.6 cm. A 2nd smaller more anterior and medial left upper lobe lesion is also slightly increased in size. It previously measured approximately 1.6 x 0.6 cm on previous image 67/3. On current image 43/3 it measures 1.9 x 0.9 cm. A cavitary peripheral left upper lobe lung mass which is spiculated and extends to the pleura as a much smaller cavity than on the previous study. It is difficult to directly measure the 2 lesions compared to each other. The process on the previous study measured approximately 4.7 x 8.4 cm. It now measures approximately 4.3 x 4.9 cm. Biapical emphysematous change is noted. No additional new lesions are seen in the lungs. Mediastinum: Heart size is normal. No pericardial effusion. No mediastinal adenopathy by size criteria. Thoracic aorta and central pulmonary arteries are normal in size. Esophagus is normal in caliber. No hiatal hernia. Bones and chest wall: No suspicious bony lesions. No vertebral body compression fractures. No axillary or supraclavicular adenopathy by size criteria. No thyroid nodules which require sonographic follow up, per consensus guidelines. Upper Abdomen: Visualized upper abdominal solid organs and bowel loops appear normal in the absence of contrast. A gastrostomy tube is in place. IMPRESSION: 1. There are 2 lesions in the left upper lobe that have slightly increased in size. 2. The spiculated cavitary lesion extending to involve the pleura in the left upper lobe has a much smaller cavity. The mass is significantly decreased in size, but is still 4.9 cm in maximum diameter. 3 period no additional new pulmonary parenchymal lesions. Dictated by: Mikey Moraes M.D. on 06/22/2023 at 18:43 Approved by: Mikey Moraes M.D. on 06/22/2023 at 18:49
[2023-06-22 13:42] LABS: Add Manual Diff / Slide Review NO; Basophils Absolute Auto 100 /uL (0-100); Basophils Percent Auto 0.6 % (0-2); Eosinophils Absolute Auto 200 /uL (0-450); Eosinophils Percent Auto 1.9 % (2-4); Hematocrit 39.2 % (41-53); Hemoglobin 13.3 g/dL (13.5-17.5); Lymphocytes Absolute Auto 2100 /uL (1100-4500); Lymphocytes Percent Auto 21.7 % (25-40); Mean Corpuscular HGB Conc 33.9 % (30-36); Mean Corpuscular Hemoglobin 29.3 PG (26-34); Mean Corpuscular Volume 86.5 fL (80-100); Monocytes Absolute Auto 1000 /uL (0-900); Monocytes Percent Auto 10.3 % (3-14); Neutrophils Absolute Auto 6300 /uL (1500-7000); Neutrophils Percent Auto 65.5 % (50-75); Platelet Count 227 X10^3/uL (150-400); Red Blood Cell Count 4.54 X10^6/uL (4.5-5.9); Red Cell Distribution Width 14.7 % (11.6-14.8); White Blood Cell Count 9.7 X10^3/uL (4.5-11.0)
[2023-06-22 14:12] LABS: Alanine Aminotransferase 27 IU/L (<50); Albumin 4.6 g/dL (3.5-5.0); Albumin Globulin Ratio 1.2 (1.0-2.8); Alkaline Phosphatase 106 U/L (38-126); Aspartate Aminotransferase 35 IU/L (17-59); BUN Creatinine Ratio 42.7 (6-22); Bilirubin Total 0.6 mg/dL (0.2-1.3); Blood Urea Nitrogen 35 mg/dL (9-20); Calcium 10.4 mg/dL (8.4-10.2); Carbon Dioxide 25 mmol/L (22-32); Chloride 103 mmol/L (98-107); Cholesterol 182 mg/dL (140-199); Estimated Glomerular Filt Rate > 60 mL/min (>60); Glucose 93 mg/dL (70-100); HDL Cholesterol 36 mg/dL (40-60); HEMOLYSIS < 15 (0-50); LDL Cholesterol Calculated 74 mg/dL (<100); Potassium 4.3 mmol/L (3.4-5.1); Sodium 140 mmol/L (137-145); Total Protein 8.6 g/dL (6.3-8.2); Triglycerides 359 mg/dL (35-150)
[2023-06-22 14:42] LABS: Prostate Specific Antigen Scrn 1.29 ng/mL (0.1-4.0)
[2023-06-22 14:43] LABS: TSH w/ Reflex to FT4 1.39 uIU/mL (0.47-4.68)
[2023-06-23 17:52] LABS: Hep C Virus Ab w/Reflex Quant REACTIVE s/c (NEGATIVE)
[2023-06-29 17:56] LABS: HCV Genotype 1a (.); HCV log 10 7.049 (.)
== END ==
PROVIDERS: PCP Family Medicine; Referring Provider Family Medicine; Visit Provider Family Medicine
DX: Z12.5 Encounter for screening for malignant neoplasm of prostate (principal); E46 Unspecified protein-calorie malnutrition; R91.8 Other nonspecific abnormal finding of lung field; E83.52 Hypercalcemia; E78.5 Hyperlipidemia, unspecified; D64.9 Anemia, unspecified; F17.210 Nicotine dependence, cigarettes, uncomplicated
CPT/HCPCS: 36415; 71250; 80053; 80061; 84443; 85025; 86803; 87522; G0103

== ENCOUNTER → 2024-01-26 13:56 | Outpatient (CLI) | payer OTHER, MEDICAID, SELFPAY ==
[2023-05-02 15:20] VITALS: BMI 15.3
--- NOTE | 2024-01-26 14:00 | DI.MRI.S_ITS ---
PROCEDURE: MR HEAD/BRAIN WO/W CON INDICATIONS: chronic headache, suspected lung CA TECHNIQUE: Noncontrast axial T1 spin echo, axial T2 fast spin echo, sagittal and axial FLAIR, coronal T2 fast spin echo, axial gradient echo, axial diffusion and ADC through the brain. After the administration of contrast, axial and coronal and sagittal 3D VIBE or T1 spin echo with fat saturation through the brain. COMPARISON: None. FINDINGS: Image quality: Excellent. CSF Spaces: Basal cisterns are patent. No extra-axial fluid collections. Ventricles are normal in size and shape. Brain: No midline shift. No intracranial bleeds or masses. No abnormal intracranial enhancement. The brainstem appears normal. Diffusion-weighted images demonstrate no acute infarct. No chronic ischemic insults. Normal intravascular flow voids are present. Scattered areas of periventricular and subcortical white matter intensities are present. No priors. Skull and face: Calvarial marrow is normal in signal. Orbits appear normal. Sinuses: Sinuses and mastoids appear clear. IMPRESSION: 1. No acute intracranial process. 2. Scattered mild areas of periventricular subcortical white matter hyperintensities. These are overall nonspecific. These are suspected to represent early changes of chronic microvascular ischemia. However, other etiology such as vasculitis, migraine sequela or potentially demyelinating disease should be considered as appropriate. Dictated by: Nidhi Walsh M.D. on 01/26/2024 at 23:01 Approved by: Nidhi Walsh M.D. on 01/26/2024 at 23:02
== END ==
LOC: MRI 13:56
PROVIDERS: PCP Family Medicine; Referring Provider Family Medicine; Visit Provider Family Medicine
DX: R51.9 Headache, unspecified (principal); R91.8 Other nonspecific abnormal finding of lung field; G89.29 Other chronic pain
CPT/HCPCS: 70553; A9579

== ENCOUNTER → 2024-06-01 13:32 | Outpatient (CLI) | payer OTHER, MEDICAID, SELFPAY ==
[2024-02-08 09:50] VITALS: BMI 15.3
[2024-06-01 14:27] LABS: Add Manual Diff / Slide Review NO; Basophils Absolute Auto 100 /uL (0-100); Basophils Percent Auto 0.9 % (0-2); Eosinophils Absolute Auto 100 /uL (0-450); Eosinophils Percent Auto 2.2 % (2-4); Hematocrit 39.5 % (41-53); Hemoglobin 13.3 g/dL (13.5-17.5); Lymphocytes Absolute Auto 2000 /uL (1100-4500); Lymphocytes Percent Auto 30.9 % (25-40); Mean Corpuscular HGB Conc 33.8 % (30-36); Mean Corpuscular Hemoglobin 29.7 PG (26-34); Mean Corpuscular Volume 87.9 fL (80-100); Monocytes Absolute Auto 500 /uL (0-900); Monocytes Percent Auto 7.8 % (3-14); Neutrophils Absolute Auto 3900 /uL (1500-7000); Neutrophils Percent Auto 58.2 % (50-75); Platelet Count 254 X10^3/uL (150-400); Red Blood Cell Count 4.49 X10^6/uL (4.5-5.9); Red Cell Distribution Width 14.1 % (11.6-14.8); White Blood Cell Count 6.6 X10^3/uL (4.5-11.0)
[2024-06-01 15:08] LABS: Alanine Aminotransferase 32 IU/L (<50); Albumin 4.5 g/dL (3.5-5.0); Albumin Globulin Ratio 1.3 (1.0-2.8); Alkaline Phosphatase 91 U/L (38-126); Aspartate Aminotransferase 44 IU/L (17-59); BUN Creatinine Ratio 34.8 (6-22); Bilirubin Total 0.5 mg/dL (0.2-1.3); Blood Urea Nitrogen 31 mg/dL (9-20); Calcium 9.9 mg/dL (8.4-10.2); Carbon Dioxide 30 mmol/L (22-32); Chloride 103 mmol/L (98-107); Estimated Glomerular Filt Rate > 60 mL/min (>60); Globulin 3.6 g/dL (1.7-4.1); Glucose 105 mg/dL (70-100); HEMOLYSIS < 15 (0-50); Potassium 4.3 mmol/L (3.4-5.1); Sodium 140 mmol/L (137-145); Total Protein 8.1 g/dL (6.3-8.2)
[2024-06-04 19:35] LABS: HCV Genotype 1a (.); HCV log 10 7.037 (.)
== END ==
LOC: LAB 13:33
PROVIDERS: PCP Family Medicine; Referring Provider Family Medicine; Visit Provider Family Medicine
DX: B19.20 Unspecified viral hepatitis C without hepatic coma (principal); G44.229 Chronic tension-type headache, not intractable; E83.52 Hypercalcemia; E78.5 Hyperlipidemia, unspecified; D64.9 Anemia, unspecified; E46 Unspecified protein-calorie malnutrition; R42 Dizziness and giddiness
CPT/HCPCS: 36415; 80053; 85025; 87522

== ENCOUNTER → 2024-12-31 14:44 | Outpatient (CLI) | payer OTHER, SELFPAY ==
[2024-02-08 09:50] VITALS: BMI 15.3
[2024-12-31 16:42] LABS: Add Manual Diff / Slide Review NO; Basophils Absolute Auto 0 /uL (0-100); Basophils Percent Auto 0.7 % (0-2); Eosinophils Absolute Auto 100 /uL (0-450); Eosinophils Percent Auto 2.2 % (2-4); Hemoglobin 13.1 g/dL (13.5-17.5); Lymphocytes Absolute Auto 2300 /uL (1100-4500); Lymphocytes Percent Auto 35.4 % (25-40); Mean Corpuscular HGB Conc 32.9 % (30-36); Mean Corpuscular Volume 88.3 fL (80-100); Monocytes Absolute Auto 700 /uL (0-900); Monocytes Percent Auto 10.2 % (3-14); Neutrophils Absolute Auto 3300 /uL (1500-7000); Neutrophils Percent Auto 51.5 % (50-75); Platelet Count 231 X10^3/uL (150-400); Red Blood Cell Count 4.53 X10^6/uL (4.5-5.9); Red Cell Distribution Width 14.5 % (11.6-14.8); White Blood Cell Count 6.4 X10^3/uL (4.5-11.0)
[2024-12-31 17:11] LABS: Alanine Aminotransferase 29 IU/L (<50); Albumin 4.7 g/dL (3.5-5.0); Albumin Globulin Ratio 1.4 (1.0-2.8); Alkaline Phosphatase 92 U/L (38-126); Aspartate Aminotransferase 58 IU/L (17-59); Bilirubin Total 0.5 mg/dL (0.2-1.3); Blood Urea Nitrogen 27 mg/dL (9-20); Calcium 9.9 mg/dL (8.4-10.2); Carbon Dioxide 25 mmol/L (22-32); Chloride 106 mmol/L (98-107); Estimated Glomerular Filt Rate > 60 mL/min (>60); Globulin 3.4 g/dL (1.7-4.1); Glucose 134 mg/dL (70-99); HEMOLYSIS < 15 (0-50); Potassium 4.4 mmol/L (3.4-5.1); Sodium 141 mmol/L (137-145); Total Protein 8.1 g/dL (6.3-8.2)
== END ==
PROVIDERS: PCP Family Medicine; Referring Provider Internal Medicine Critical Care Medicine; Visit Provider Internal Medicine Critical Care Medicine
DX: B19.20 Unspecified viral hepatitis C without hepatic coma (principal)
CPT/HCPCS: 36415; 80053; 85025; 87522

== ENCOUNTER → 2025-01-25 13:49 | Outpatient (CLI) | payer OTHER, SELFPAY ==
[2024-02-08 09:50] VITALS: BMI 15.3
--- NOTE | 2025-01-25 13:50 | DI.CT.S_ITS ---
PROCEDURE: CT CHEST W CON INDICATIONS: Lung mass TECHNIQUE: After the administration of intravenous contrast, 5 mm thick sections acquired from the pulmonary apices to the posterior costophrenic angles. 1 mm axial lung, 5 mm thick coronal and sagittal reformats and 7 mm axial MIP were acquired. For radiation dose reduction, the following was used: automated exposure control, adjustment of mA and/or kV according to patient size. COMPARISON: [facility], CT, CT CHEST WO [facility], 06/22/2023, 12:11. FINDINGS: Image quality: Diagnostic. Lower Neck: No enlarged lymph nodes. Thyroid: No thyroid nodules which require sonographic follow up, per consensus guidelines. Axillae: No enlarged lymph nodes. Chest Wall: Unremarkable. Bones: Unremarkable. Lungs and Pleura: No pneumothorax or pleural effusions. Multiple pulmonary nodules and masses are again seen. Examples include: -2.2 x 1.5 cm, right upper lobe, unchanged (series 3, image 57). -1.7 x 0.8 cm, right upper lobe, unchanged (series 3, image 56). -1.2 x 1.8 cm, right upper lobe, previously 1.8 x 1.7 cm (series 3, image 76). -4.5 x 3.0 cm, left upper lobe, previously 5.0 x 3.1 cm. Heart: Heart size is normal. No pericardial effusion. Thoracic Vessels: The aorta and pulmonary arteries demonstrate normal size. Mediastinum and Josefina: No enlarged lymph nodes. Esophagus: No wall thickening. No hiatal hernia. Upper Abdomen: Visualized upper abdomen solid organs and bowel loops appear normal. IMPRESSION: Interval decrease in size of the left upper lobe mass and 1 of the right upper lobe nodules. Remaining nodules are similar compared with prior. No suspicious nuria disease. Dictated by: Geoff Rajan M.D. on 01/27/2025 at 20:05 Approved by: Geoff Rajan M.D. on 01/27/2025 at 20:09
== END ==
PROVIDERS: PCP Family Medicine; Referring Provider Internal Medicine Critical Care Medicine; Visit Provider Internal Medicine Critical Care Medicine
DX: R91.8 Other nonspecific abnormal finding of lung field (principal)
CPT/HCPCS: 71260; Q9967